=== PATIENT | female | born 1950 | race Caucasian/White ===

== ENCOUNTER 2016-09-19 09:25 | Inpatient (IN) | payer OTHER ==
[~2016-09-19] VITALS: Ht 175.3 cm; Wt 104.3 kg
[~2016-09-19 09:25] MED LIST: ACETAMINOPHEN-1 EAC3 PO; ALPRAZOLAM1 M2 PO; ALPRAZOLAM1 MG PO; COUMADIN5 M2 PO; DIGOX0.25 MG PO; DIGOXIN0.125 MG PO; DILTIAZEM ER360 M1 PO; DULOXETINE30 MG PO; ESCITALOPRAM20 MG PO; FUROSEMIDE20 M1 PO; GABAPENTIN300 MG PO; GABAPENTIN600 M1 PO; HYDROMORPHONE HC2 M1 PO; JANUMET 1000 MG1 TAB PO; KEFLEX500 M1 PO; LANTUS SOLOS100 U/ML SC; LEVOTHYROXINE0.05 M1 PO; LIPITOR20 M2 PO; LISINOPRIL2.5 M1 PO; MAGNESIUM OXID400 MG PO; MECLIZINE HCL25 M1 PO; MECLIZINE HCL25 MG PO; METOPROLOL SUCC25 M1 PO; NORCO 325 MG-101 TAB PO; NORCO 325 MG-7.1 TAB PO; NOVOLOG FL100 UNIT/1; NYAMYC100000 U/G TOP; PANTOPRAZOLE SO40 MG PO; PREDNISONE5 M1 PO; PROAIR HFA0.09 MG/Ac INH; PROBIOTIC1 EACH PO; PROCHLORPERAZIN25 MG PR; SLOW-MAG71.5 MG PO; SYNTHROID25 MCG PO; TRAMADOL HCL50 M1 PO; ULTRA-LIGHT RO1 EACH TOP; VENLAFAXINE HC150 MG PO; ZETIA10 M1 PO
--- NOTE | 2016-09-19 09:40 | NUR ---
PT BIBA FROM [facility] FOR AMS STARTING THIS MORNING. PER EMS, PT'S BLOOD SUGAR IN 60'S, FACILITY GAVE PT GLUCOSE AND UPON EMS ARRIVAL, PT'S B/S 140'S. PER SAFETY GROOVING MACHINE OPERATOR, PT ALSO HAD PIN POINT PUPILS, TAKES CODEINE, GIVEN 1 SPRAY NARCAN WITHOUT CHANGES. PT ARRIVES ALERT/DROWSY AND ANSWERING SOME QUESTIONS APPROPRIATELY. ORIENTED TO SELF AND PLACE ONLY. F/S ON ARRIVAL 125. L SIDE FACIAL DROOP NOTED. MED STUDENT AT BEDSIDE FOR EVAL.
--- NOTE | 2016-09-19 09:42 | NUR ---
DR. MARKOS GONZALEZ.
--- NOTE | 2016-09-19 09:49 | ED GENERAL ADULT ---
History of Present Illness General Chief Complaint: Altered Mental Status Stated Complaint: AMS Source: old records, EMS, W10 Exam Limitations: no limitations Vital Signs & Intake/Output Vital Signs & Intake/Output Vital Signs Date Time Temp Pulse Resp B/P Pulse O2 O2 Flow FiO2 Ox Delivery Rate 09/19 0940 97.9 115 15 120/79 97 Room Air Room Air Allergies Coded Allergies: oxycodone (From PERCOCET) (UNKNOWN 07/07/16) morphine (HEADACHES, SWEATING 07/07/16) nitroglycerin (MADE MY HEART GO CRAZY 07/07/16) Reconcile Medications Acetaminophen With Codeine (Acetaminophen-Cod #3 Tablet) 300 MG-30 MG TABLET 1 TAB PO TID PAIN (Reported) Albuterol Sulfate (Proair Hfa) 0.09 MG/Actuation WING 2 PUFF INH TID PRN ASTHMA (Reported) Alprazolam 1 MG TABLET 1 TAB PO DAILY ANXIETY (Reported) Atorvastatin Calcium (Lipitor) 20 MG TABLET 1 TAB PO BEDTIME HIGH CHOLESTEROL (Reported) Cephalexin (Keflex) 500 MG CAPSULE 1 CAP PO BID UTI Diltiazem HCl (Diltiazem ER) 360 MG CAPSULE.ER 1 CAP PO DAILY AFIB (Reported) Ezetimibe (Zetia) 10 MG TABLET 1 TAB PO DAILY HIGH CHOLESTEROL (Reported) Furosemide 20 MG TABLET 1 TAB PO DAILY HTN (Reported) Gabapentin 600 MG TABLET 1 TAB PO BID NEUROPATHY (Reported) Insulin Aspart, Recombinant (Novolog Flexpen) (Unknown Strength) INSULN.PEN DIABETES (Reported) Dose <80mg/dl Initiate hypoglycemic protocol 80-150mg/dl 2units 151-200mg/dl 4units 201-250mg/dl 6units 251-300mg/dl 8units 301-350mg/dl 10units 351-400mg/dl 12units more than 400mg/dl 14units Bedtime 201-250mg/dl 2units 251-300mg/dl 4units 301-350mg/dl 6units 351-400mg/dl 8units more than 400mg/dl 10units Insulin Glargine, Recombinan (Lantus Solostar) 100 U/ML RAVI 40 UNITS SC QPM DIABETES (Reported) GIVEN 7 UNITS Levothyroxine Sodium (Synthroid) 25 MCG TABLET 1.5 TAB PO DAILY AC hypothyroidism Lisinopril 2.5 MG TABLET 1 TAB PO DAILY HTN (Reported) Magnesium Chloride (Slow-Mag) 71.5 MG TABLET.DR 1 TAB PO TID SUPPLEMENT ( Reported) Meclizine HCl 25 MG TABLET 1 TAB PO BID VERTIGO (Reported) Metformin Hydrochloride/Susan (Janumet 1000 MG-50 MG) 1 TAB TAB 1 TAB PO BID DIABETES (Reported) Venlafaxine HCl (Venlafaxine HCl ER) 150 MG CAP.ER.24H 1 CAP PO DAILY DEPRESSION (Reported) Warfarin Sodium (Coumadin) 5 MG TABLET 1 TAB PO DAILY AFIB (Reported) please dose warfarin as per INR. Triage Note: PT BIBA FROM [facility] FOR AMS STARTING THIS MORNING. PER EMS, PT'S BLOOD SUGAR IN 60'S, FACILITY GAVE PT GLUCOSE AND UPON EMS ARRIVAL, PT'S B/S 140'S. PER YARD JACKER, PT ALSO HAD PIN POINT PUPILS, TAKES CODEINE, GIVEN 1 SPRAY NARCAN WITHOUT CHANGES. PT ARRIVES ALERT/DROWSY AND ANSWERING SOME QUESTIONS APPROPRIATELY. ORIENTED TO SELF AND PLACE ONLY. F/S ON ARRIVAL 125. L SIDE FACIAL DROOP NOTED. MED STUDENT AT BEDSIDE FOR EVAL. Triage Nurses Notes Reviewed? yes HPI: Patient is as short-term rehabilitation. This morning on rounds a noticed that she was confused. Patient's fingerstick was noted to be 60. Patient was given glucagon without any change in her mental status. Patient was also noted to have pinpoint pupils and patient is on "bleeding so she was given Narcan again without change in her mental status. Patient has no history of confusion. Patient is on Coumadin for A. fib. Patient is currently alert and oriented 2 but is not offering any history. Patient has no current complaints. Past History Travel History Traveled to [place] past 21 day No Medical History Any Pertinent Medical History? see below for history Neurological: peripheral neuropathy, TIA EENT: NONE Cardiovascular: AFIB, cardiomyopathy, syncope, ORTHOSTATIC HYPOTENSION LOW MAGNESIUM PACEMAKER/DEFIBRILLATOR Respiratory: asthma Gastrointestinal: GASTRIC BYPASS Hepatic: NONE Renal: NONE Musculoskeletal: osteoarthritis, NEUROPATHY Psychiatric: NONE Endocrine: diabetes, hypothyroidism Blood Disorders: NONE Cancer(s): NONE TERADATA DEVELOPER/Reproductive: NONE Other Medical Hx: Gastric Bypass Surgery, Frequent Falls History of MRSA: No History of VRE: No History of CDIFF: No Pneumonia Vaccine: 05/29/16 Influenza Vaccine: 06/01/16 Surgical History Surgical History: GASTRIC BYPASS PACEMAKER Psychosocial History Who do you live with Patient/Self Services at Home None What is your primary language Chinese Tobacco Use: Never used Family History Family History, If Any: Relation not specified for: *No pertinent family history Hx Contributory? No Review of Systems Review of Systems Constitutional: Reports: see HPI. Physical Exam Physical Exam General Appearance: well developed/nourished, alert, awake, moderate distress, NORMAL MOTRO STRENGTH, NO PRONATOR DRIFT Head: atraumatic Eyes: Bilateral: PERRL, EOMI. Ears, Nose, Throat: LEFT FACIAL DROOP Neck: supple Respiratory: normal breath sounds, chest non-tender, no respiratory distress, lungs clear Cardiovascular: normal peripheral pulses, irregularly irregular Gastrointestinal: normal bowel sounds, soft, non-tender, no organomegaly Back: normal inspection Extremities: normal inspection, normal capillary refill, normal range of motion, no edema Neurologic/Psych: awake Lymphatic: no anterior cervical estela Core Measures ACS in differential dx? No CVA/TIA Diagnosis: Yes NIH Stroke Scale: Total 2 Dt/Tm Last Known Well: Yes Date Last Known Well: 09/18/16 Time Last Known Well: 2199 Neurological S/S of CVA: Facial Hemiparesis Symptom start date: 09/18/16 Symptom start time: 0 Reason tPA not ordered: Medical Contraindication Severe Sepsis Present: No Septic Shock Present: No Progress Differential Diagnoses I considered the following diagnoses in my evaluation of the patient: [CVA, UTI, PNEUMONIA, ELECTROLYTE ABNORMALITY] Plan of Care: Orders Procedure Date/time Status Telemetry/Leasing Assistant 09/19 947 Active URINALYSIS 09/19 947 Active TROPONIN LEVEL 09/19 947 Complete PARTIAL THROMBOPLASTIN TIME 09/19 0848 Complete PROTHROMBIN TIME 09/19 0848 Complete COMPREHENSIVE METABOLIC PANEL 09/19 947 Complete CBC WITHOUT DIFFERENTIAL 09/19 947 Complete EKG 09/19 0848 Active Laboratory Tests 09/19/16 0949: Anion Gap 13, Estimated GFR > 60, BUN/Creatinine Ratio 34.3 H, Glucose 103 H, Calcium 9.1, Total Bilirubin 0.9, AST 22, ALT 25, Alkaline Phosphatase 31, Troponin I < 0.01, Total Protein 7.0, Albumin 3.7, Globulin 3.3, Albumin/ Globulin Ratio 1.1, PT 19.6 H, INR 1.88 H, APTT 31, CBC w Diff MAN DIFF ORDERED, RBC 3.87 L, MCV 81.0, MCH 27.2, RDW 15.3 H, MPV 7.6, Gran % 87.9 H, Lymphocytes % 9.2 L, Monocytes % 2.8, Eosinophils % 0.1, Basophils % 0 L, Absolute Granulocytes 8.1 H, Absolute Lymphocytes 0.9 L, Absolute Monocytes 0.3, Absolute Eosinophils 0, Absolute Basophils 0, Platelet Estimate ADEQUATE, Hypochromic-Microcytic 1+, Anisocytosis 1+, PUBS MCHC 33.5 Diagnostic Imaging: Viewed by Me: Radiology Read, CT Scan. Discussed w/RAD: Radiology Read, CT Scan. Radiology Impression: PATIENT: ROSARIO CLAYTON PRESENT AGE: 65 PATIENT ACCOUNT NO: [id number] : 49 LOCATION: [facility] ORDERING PHYSICIAN: VANESSA BURROWS MD SERVICE DATE: 09/19/16 EXAM TYPE: CAT - CT HEAD WO IV CONTRAST EXAMINATION: CT HEAD WITHOUT CONTRAST CLINICAL INFORMATION: Left facial droop. Cerebrovascular accident. COMPARISON: CT scan of the head 08/09/2016. TECHNIQUE: Contiguous axial imaging was performed from the skull base to vertex without intravenous administration of contrast. DLP: 600.71 mGy-cm. FINDINGS: There is no acute intracranial hemorrhage or abnormal extra- axial collection. No intracranial mass effect or midline shift. Lateral and third ventricles are slightly prominent and there is proportionate prominence of the subarachnoid spaces reflecting a mild degree of global parenchymal volume loss. There are scattered ill-defined foci of hypoattenuation within the periventricular white matter that most likely represent a chronic manifestation of small vessel ischemia. Shaffer-white matter differentiation is preserved and there is no evidence of acute territorial infarct. The calvarium and skull base are intact. Mastoid air cells and middle ear cavities are well aerated. Visualized paranasal sinuses are well-aerated. IMPRESSION: There are chronic small vessel ischemic changes within the periventricular white matter. Grossly no evidence of acute territorial infarct or hemorrhage. DICTATED BY: UZIEL BARRAGAN MD DATE/TIME DICTATED:09/19/161024 LABORER CONSTRUCTION OR LEAK GANG:JULIO DATE/ TIME TRANSCRIBED:09/19/161024 CONFIDENTIAL, DO NOT COPY WITHOUT APPROPRIATE AUTHORIZATION. <Electronically signed in Other Vendor System> SIGNED BY: UZIEL BARRAGAN MD 09/19/16 1033 CXR Impression: PATIENT: ROSARIO CLAYTON PRESENT AGE: 65 PATIENT ACCOUNT NO: [id number] : 49 LOCATION: [facility] ORDERING PHYSICIAN: VANESSA BURROWS MD SERVICE DATE: 09/19/16 EXAM TYPE: RAD - XRY-CHEST XRAY, PA AND LATERAL EXAMINATION: XR CHEST CLINICAL INFORMATION: Pneumonia, confusion. COMPARISON: Multiple prior examinations, most recent chest 2015. TECHNIQUE: PA and lateral views of the chest were obtained. FINDINGS: The exam is limited as the patient was rotated to the right with suboptimal inspiration resulting in low lung volumes. There are mild increased interstitial markings which may be artifactual versus edema. I do not see a focal consolidation. A pacemaker/AICD is noted with leads overlying the right ventricle, unchanged. IMPRESSION: Limited examination as noted above. Possible mild edema versus artifact. Consider follow up imaging with PA and lateral views if the patient is able and thought clinically necessary. DICTATED BY: JASVIR SOARES MD DATE/TIME DICTATED:09/19/161055 LABORER CONSTRUCTION OR LEAK GANG:JULIO DATE/ TIME TRANSCRIBED:09/19/161055 CONFIDENTIAL, DO NOT COPY WITHOUT APPROPRIATE AUTHORIZATION. <Electronically signed in Other Vendor System> SIGNED BY: JASVIR SOARES MD 09/19/16 1112 Initial ED EKG: AFIB (WITH RVR), nonspecific ST T wave chg Prior EKG: unchanged Rhythm Strip: atrial fibrillation Departure Departure Disposition: STILL A PATIENT Condition: Stable Clinical Impression Primary Impression: UTI (urinary tract infection) Secondary Impressions: Afib Referrals: GABRIELA BHAT MD (PCP/Family) Departure Forms: Customer Survey General Discharge Information Admission Note Spoke With: BERNICE REYES,RICHARDSON Documentation of Exam: Documentation of any treatments & extenuating circumstances including Concerns Regarding Discharge (functional status, medication knowledge or non-compliance, living conditions, etc.) that warrant an admission rather than observation: [ Patient has acute confusion and a UTI. Patient will be admitted for IV antibiotics. Patient has a history of atrial fibrillation and her INR subtherapeutic. Patient does have a left facial droop but no other neurological findings except for the confusion. They raise the possibility of this being a stroke however makes it unlikely. The patient is not a candidate for TPA regardless. The patient will be admitted to telemetry for further evaluation and IV antibiotics.] Critical Care Note Critical Care Note Critical Care Time: non-applicable
[2016-09-19 10:01] LABS: ABSOLUTE BASOPHIL COUNT 0 /CUMM (0.0-0.2); ABSOLUTE EOSINOPHIL COUNT 0 /CUMM (0.0-0.7); ABSOLUTE GRANULOCYTE CT 8.1 /CUMM (1.4-6.5); ABSOLUTE LYMPH COUNT 0.9 /CUMM (1.2-3.4); ABSOLUTE MONOCYTE COUNT 0.3 /CUMM (0.10-0.60); BASOPHIL % 0 % (0.0-2.0); EOSINOPHIL % 0.1 % (0-5); GRANULOCYTE % 87.9 % (42.2-75.2); HEMATOCRIT 31.3 % (37-47); MEAN CORPUSCULAR HGB 27.2 PG (27.0-31.0); MEAN CORPUSCULAR HGB CONC 33.5 G/DL (33.0-37.0); MEAN PLATELET VOLUME 7.6 FL (7.4-10.4); PLATELET COUNT 271 /CUMM (130-400); RBC DISTRIBUTION WIDTH 15.3 % (11.5-14.5); RED BLOOD CELL CT 3.87 /CUMM (4.20-5.40); WHITE BLOOD CELL COUNT 9.2 /CUMM (4.8-10.8)
[2016-09-19 10:08] LABS: PT 19.6 SEC (9.4-12.5); PTT 31 SEC (25-37)
--- NOTE | 2016-09-19 10:33 | CT SCAN REPORT ---
EXAMINATION: CT HEAD WITHOUT CONTRAST CLINICAL INFORMATION: Left facial droop. Cerebrovascular accident. COMPARISON: CT scan of the head 08/09/2016. TECHNIQUE: Contiguous axial imaging was performed from the skull base to vertex without intravenous administration of contrast. DLP: 600.71 mGy-cm. FINDINGS: There is no acute intracranial hemorrhage or abnormal extra-axial collection. No intracranial mass effect or midline shift. Lateral and third ventricles are slightly prominent and there is proportionate prominence of the subarachnoid spaces reflecting a mild degree of global parenchymal volume loss. There are scattered ill-defined foci of hypoattenuation within the periventricular white matter that most likely represent a chronic manifestation of small vessel ischemia. Shaffer-white matter differentiation is preserved and there is no evidence of acute territorial infarct. The calvarium and skull base are intact. Mastoid air cells and middle ear cavities are well aerated. Visualized paranasal sinuses are well-aerated. IMPRESSION: There are chronic small vessel ischemic changes within the periventricular white matter. Grossly no evidence of acute territorial infarct or hemorrhage.
--- NOTE | 2016-09-19 11:12 | RADIOLOGY REPORT ---
EXAMINATION: XR CHEST CLINICAL INFORMATION: Pneumonia, confusion. COMPARISON: Multiple prior examinations, most recent chest 08/09/2016. TECHNIQUE: PA and lateral views of the chest were obtained. FINDINGS: The exam is limited as the patient was rotated to the right with suboptimal inspiration resulting in low lung volumes. There are mild increased interstitial markings which may be artifactual versus edema. I do not see a focal consolidation. A pacemaker/AICD is noted with leads overlying the right ventricle, unchanged. IMPRESSION: Limited examination as noted above. Possible mild edema versus artifact. Consider follow up imaging with PA and lateral views if the patient is able and thought clinically necessary.
--- NOTE | 2016-09-19 11:39 | NUR ---
MED WITH ROCKY PER AARON. PER MD BURROWS, NO URINE/URINE CULTURE NEEDED SINCE PENDING FROM YESTERDAY OUTPATIENT.
--- NOTE | 2016-09-19 12:13 | NUR ---
PT ADMITTED TO ROOM [id number]
--- NOTE | 2016-09-19 12:24 | History & Physical ---
SOHAN HERRERAMA 09/19/16 1224: General Information and HPI MD Statement: I have seen and personally examined ROSARIO CLAYTON and documented this H&P. The patient is a 65 year old F who presented with a patient stated chief complaint of slurred speech and acute confusion. Source of Information: [facility], REHABILITATION FACILITY Exam Limitations: clinical condition, confusion, poor historian, intoxication History of Present Illness: Patient is a 65-year-old female with past medical history of cardiomyopathy status post AICD about 5 -6 years ago with recent generator change about a month ago, history of A. fib on Coumadin, history of hypertension, hyperlipidemia, asthma, diabetes mellitus, hypothyroidism, chronic hypomagnesemia complicated with seizures and V. tach, gastric bypass procedure , recently admitted to [facility] due to recurrent falls and was discharged to short-term rehabilitation ([facility] )presented to the ED through ambulance with chief complaint of acute confusion with slurred speech started this morning. Patient was confused at the time of examination so most of the history was obtained from the nurse in the facility. As per nurse she was in her usual state of health until this morning, and she found her confused and was having slurred speech. Patient's blood sugar levels were checked and were found to be in 60s, she was given 1 time dose of glucagon and sugar levels improved to 79 but her mental condition remains the same and she was brought to the ER for further assessment. The nurse also told that patient was recently treated for urinary tract infection, received Macrobid for total of 7 days. Patient finished a course of antibiotics on September 10, urinalysis and urine culture were obtained done on As mentioned above patient was recently discharged to the facility from [facility] on 08/14/2016. She has a history of A. fib on 5 mg of Coumadin daily, as per facility. She was recently seen by Dr. Benito as an outpatient for medical optimization and cardiac clearance before the knee surgery Allergies/Medications Allergies: Coded Allergies: acetaminophen (09/19/16) oxycodone (From PERCOCET) (UNKNOWN 09/19/16) morphine (HEADACHES, SWEATING 09/19/16) nitroglycerin (MADE MY HEART GO CRAZY 09/19/16) Home Med list Acetaminophen With Codeine (Acetaminophen-Cod #3 Tablet) 300 MG-30 MG TABLET 1 TAB PO TID PAIN (Reported) Albuterol Sulfate (Proair Hfa) 0.09 MG/Actuation WING 2 PUFF INH TID PRN ASTHMA (Reported) Alprazolam 1 MG TABLET 1 TAB PO DAILY ANXIETY (Reported) Atorvastatin Calcium (Lipitor) 20 MG TABLET 1 TAB PO BEDTIME HIGH CHOLESTEROL (Reported) Cephalexin (Keflex) 500 MG CAPSULE 1 CAP PO BID UTI Diltiazem HCl (Diltiazem ER) 360 MG CAPSULE.ER 1 CAP PO DAILY AFIB (Reported) Ezetimibe (Zetia) 10 MG TABLET 1 TAB PO DAILY HIGH CHOLESTEROL (Reported) Furosemide 20 MG TABLET 1 TAB PO DAILY HTN (Reported) Gabapentin 600 MG TABLET 1 TAB PO BID NEUROPATHY (Reported) Insulin Aspart, Recombinant (Novolog Flexpen) (Unknown Strength) INSULN.PEN DIABETES (Reported) Dose <80mg/dl Initiate hypoglycemic protocol 80-150mg/dl 2units 151-200mg/dl 4units 201-250mg/dl 6units 251-300mg/dl 8units 301-350mg/dl 10units 351-400mg/dl 12units more than 400mg/dl 14units Bedtime 201-250mg/dl 2units 251-300mg/dl 4units 301-350mg/dl 6units 351-400mg/dl 8units more than 400mg/dl 10units Insulin Glargine, Recombinan (Lantus Solostar) 100 U/ML RAVI 40 UNITS SC QPM DIABETES (Reported) GIVEN 7 UNITS Levothyroxine Sodium (Synthroid) 25 MCG TABLET 1.5 TAB PO DAILY AC hypothyroidism Lisinopril 2.5 MG TABLET 1 TAB PO DAILY HTN (Reported) Magnesium Chloride (Slow-Mag) 71.5 MG TABLET.DR 1 TAB PO TID SUPPLEMENT ( Reported) Meclizine HCl 25 MG TABLET 1 TAB PO BID VERTIGO (Reported) Metformin Hydrochloride/Susan (Janumet 1000 MG-50 MG) 1 TAB TAB 1 TAB PO BID DIABETES (Reported) Venlafaxine HCl (Venlafaxine HCl ER) 150 MG CAP.ER.24H 1 CAP PO DAILY DEPRESSION (Reported) Warfarin Sodium (Coumadin) 5 MG TABLET 1 TAB PO DAILY AFIB (Reported) please dose warfarin as per INR. 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 self Services at Home: None Primary Language: Belarusian Functional Ability ADLs Independent: dressing, eating, toileting, bathing. Ambulation: independent, cane, walker, non-ambulatory IADLs Independent: shopping, housework, finances, food prep, telephone, transportation , medication admin. Review of Systems Review of Systems Constitutional: Denies: see HPI. Exam & Diagnostic Data Last 24 Hrs of Vital Signs/I&O Vital Signs Date Time Temp Pulse Resp B/P Pulse O2 O2 Flow FiO2 Ox Delivery Rate 09/19 1214 Room Air Room Air 09/19 1136 98.1 123 18 108/71 97 Room Air 09/19 1000 Room Air Room Air 09/19 0940 97.9 115 15 120/79 97 Room Air Room Air Intake & Output 09/19 1600 09/19 0800 09/19 0000 Intake Total 0 Output Total Balance 0 Intake, Oral 0 Physical Exam General Appearance No Acute Distress, APPEARED CONFUSED AND ALTERED NOT ORIENTED IN TIME PLACE AND PERSON Skin No Rashes, No Breakdown Cardiovascular IRREGULARLY IRREGULAR RATE AND RHYTHM Lungs Clear to Auscultation Abdomen Normal Bowel Sounds, Soft, No Tenderness Neurological Normal Speech, Normal Tone, OTHER NEUROLOGICAL EXAMINATION COULD NOT BEFORE FROM DUE TO PATIENT'S ACUTE CONFUSION Extremities No Clubbing, No Cyanosis, No Edema Vascular Normal Pulses Last 24 Hrs of Labs/Robbie: Laboratory Tests 09/19/16 0949: Anion Gap 13, Estimated GFR > 60, BUN/Creatinine Ratio 34.3 H, Glucose 103 H, Calcium 9.1, Total Bilirubin 0.9, AST 22, ALT 25, Alkaline Phosphatase 31, Troponin I < 0.01, Total Protein 7.0, Albumin 3.7, Globulin 3.3, Albumin/ Globulin Ratio 1.1, PT 19.6 H, INR 1.88 H, APTT 31, CBC w Diff MAN DIFF ORDERED, RBC 3.87 L, MCV 81.0, MCH 27.2, RDW 15.3 H, MPV 7.6, Gran % 87.9 H, Lymphocytes % 9.2 L, Monocytes % 2.8, Eosinophils % 0.1, Basophils % 0 L, Absolute Granulocytes 8.1 H, Absolute Lymphocytes 0.9 L, Absolute Monocytes 0.3, Absolute Eosinophils 0, Absolute Basophils 0, Platelet Estimate ADEQUATE, Hypochromic-Microcytic 1+, Anisocytosis 1+, PUBS MCHC 33.5 Diagnostic Data EKG Results EKG done in the ED showed atrial fibrillation with a heart rate in 110s with some borderline T-wave abnormalities Assessment/Plan Assessment: This is a 65-year-old female with past medical history of cardiomyopathy status post AICD about 10 years ago with recent generator change about a month ago, history of A. fib on Coumadin, history of hypertension, hyperlipidemia, asthma, diabetes mellitus, hypothyroidism, chronic hypomagnesemia, gastric bypass procedure , recently admitted to [facility] due to recurrent falls and was discharged to short-term rehabilitation ([facility] )presented to the ED through ambulance with chief complaint of acute confusion with slurred speech started this morning. Vitals on admission temperature 97.9, pulse 115, blood pressure 120/79 on room air Pertinent labs: WBC count 9.2, H&H 10.5/31.3 with MCV of 81, subtherapeutic INR 1.88 , normal BEP First troponin done in the ED was negative EKG showed atrial fibrillation heart rate in the range of 110s CT head revealed :There are chronic small vessel ischemic changes within the periventricular white matter. Grossly no evidence of acute territorial infarct or hemorrhage. Chest x-ray : Limited examination as noted above. Possible mild edema versus artifact. Consider follow up imaging with PA and lateral views if the patient is able and thought clinically necessary. Assessment 1. Acute confusion with slurred speech(rule out TIA/stroke) in the setting of subtherapeutic INR 2.Encephalopathy due to urinary tract infection 3. Hypoglycemia history of diabetes mellitus- 4. History of hypertension hyperlipidemia 5. History of hypothyroidism 6. History of chronic hypomagnesemia without clear etiology complicated with seizures and polymorphic V. tach. 7. History of asthma Plan 1. Acute confusion with slurred speech(rule out TIA/stroke) in the setting of subtherapeutic INR : * We'll admit the patient to telemetry floor * Keep the patient nothing by mouth for now obtain formal swallow evaluation. Bedside evaluation cannot be performed because of patient's acute confusion. * Talked to Dr. Benito ,AICD device is not compatible with MRI so cannot be performed. * Will give give higher dose of Coumadin today 7.5 mg * Continue to monitor INR daily and dose Coumadin accordingly * Will obtain neurology consult if needed if symptoms do not improve. 2.Metabolic Encephalopathy due to urinary tract infection: (History of recurrent urinary tract infections) * Urine culture done at the facility showed gram-negative rods. Recently been treated for urinary tract infection with Macrobid for total of 7 days. * Urine analysis and urine culture have been recent. * We'll start the patient on IV ceftriaxone * Continue gentle hydration * Monitor vitals every 4 hours * Watch for any hemodynamic instability. 3. Hypoglycemia history of diabetes mellitus: * Hemoglobin A1c checked in June was 6.1. * As patient is currently nothing by mouth we'll start the patient on low-dose NPH insulin sliding scale. * Continue with D5 half-normal saline. * We will recheck hemoglobin A1c if low will consider calling endocrinology. 4. History of hypertension hyperlipidemia: * Continue home medications 6. History of hypothyroidism * Continue home dose of levothyroxine. 7. History of chronic hypomagnesemia without clear etiology complicated with seizures and polymorphic V. tach. * Mg levels are pending * Continue slow release Mg . 8. DVT prophylaxis with subcutaneous Lovenox 9. Mild to moderate pain controlled with Tylenol 10. Patient is full code(as patient is currently confused and she has no power of trial attorney will keep her full code for now once her clinical and mental condition improves we will readdress the CODE STATUS) As Ranked By This Provider Problem List: 1. Hypomagnesemia syndrome 2. Afib 3. CVA (cerebral infarction) Core Measures/Miscellaneous Acute Coronary Syndrome ACS Diagnosis: No Cerebrovascular Accident CVA/TIA Diagnosis: Yes Date Last Known Well: 09/18/16 Time Last Known Well: 2199 Neurological S/S of CVA: Facial Hemiparesis Symptom Start Date: 09/18/16 Symptom Start Time: 2199 Reason tPA not ordered Medical Contraindication Congestive Heart Failure CHF Diagnosis: No Venous Thromboembolism VTE Risk Factors: Acute medical illness, Age > 40 VTE Prophylaxis Ordered Inpt: Pharm- Warfarin No Mech VTE prophylaxis d/t: No contraindications No VTE Pharm Prophylaxis d/t: No contraindications VTE Diagnosis: No VTE Type: NONE VTE Confirmed by (Test): NONE Severe Sepsis Severe Sepsis Present: No Septic Shock Septic Shock Present: No Miscellaneous Documentation Attending Case Discussed With: SAROJ Primary Care Physician: GABRIELA BHAT MD Patient sees these Specialists dr BENITO Level of Patient Care: Telemetry MARK KYLE MD 09/19/16 1450: Attending MD Review Statement Attending Statement Attending MD Statement: examined this patient, discuss w/resident/PA/[employer], agreed w/resident/PA/[employer], reviewed EMR data (avail), discussed with nursing, discussed with case mgmt Attending Assessment/Plan: 65-year-old female past medical history of A. fib on Coumadin, cardiomyopathy with an AICD placed many years ago, diabetes and hypertension and chronic hypomagnesemia. She was recently here in August with a fall and was discharged yesterday on August 14. Apparently at [facility] she was doing okay, completed a course of Macrobid for a UTI and was noticed to be acutely confused. Sugar was on the low side and we were worried about stroke and sent her in. She is confused and nonfocal on exam so I'm not sure what the encephalopathy is from. She does have a positive UA and positive urine culture and I think given the acute confusion, the diabetes, I think it would be prudent to treat her. We 'll give IV ceftriaxone with the hope that this is a UTI causing delirium, will dose her Coumadin slightly higher today as INR is subtherapeutic at 1.8, neurochecks. She cannot get an MRI because of the ICD, will get an echo to rule out thrombus. I worry that she is hypoglycemic we'll hold all long-acting agents and check a hemoglobin A1c, nothing by mouth and a formal swallow eval
[2016-09-19] MEDS ORDERED: COUMADIN5 M2 PO (12:33)
--- NOTE | 2016-09-19 12:49 | NUR ---
REPORT GIVEN TO ETHAN JOSHI.
--- NOTE | 2016-09-19 13:11 | NUR ---
HOUSE STAFF PAGED A SECOND TIME FOR BLOOD ORDER CLARIFICATION.
[2016-09-19 13:54] VITALS: BP 136/78
--- NOTE | 2016-09-19 14:51 | Admission Certification ---
Admission Certification Certification Statement - As attending physician, I certify that at the time of - admission, based on clinical presentation, severity of - symptoms, need for further diagnostic testing and - therapeutic interventions, and risk of adverse outcomes - without in-hospital treatment, in my clinical assessment, - this patient requires an acute hospital stay for a minimum - of two nights or longer. I have also considered psychsocial - factors such as support system, advanced age, financial - issues, cognitive issues, and failed out-patient treatments, - past re-admission history, safety of patient, and lack of - compliance as applicable. Specific rationale supporting this admission is: Acute confusion and questionable slurred speech and patient had A. fib and cardiomyopathy.
--- NOTE | 2016-09-19 15:00 | NUR ---
ADMISSION NOTE; PT ADMITTED TO FLOOR. ALERT AND CONFUSED. NIH SCORE 3. VSS. PT AFIB 120'S. PT DUE CARDIZEM CD DOSE. NO MEDS GIVEN TODAY. CT HEAD NEGATIVE. TO BE SEEN BY NEURO. BEDSIDE SWALLOW EVAL DONE BY SPEECH THERAPIST. PT CLEARED FOR CHOPPED DIET WITH THIN LIQUIDS.
--- NOTE | 2016-09-19 15:36 | Cons- Neurology ---
General Information and HPI Consulting Request Date of Consult: 09/19/16 Requested By: JASVIR PLUMMER MD History of Present Illness: 65-year-old female admitted with confusion Patient unable to give reliable history Hospital she has a history of A. fib, hypertension, gastric bypass, recurrent falls, asthma, diabetes She has had a recent urinary tract infection. She was at [facility] in August She is now admitted with confusion and slurred speech No observed falls, head trauma, or convulsions Allergies/Medications Allergies: Coded Allergies: acetaminophen (09/19/16) oxycodone (From PERCOCET) (UNKNOWN 09/19/16) morphine (HEADACHES, SWEATING 09/19/16) nitroglycerin (MADE MY HEART GO CRAZY 09/19/16) Home Med List: Acetaminophen With Codeine (Acetaminophen-Cod #3 Tablet) 300 MG-30 MG TABLET 1 TAB PO TID PAIN (Reported) Albuterol Sulfate (Proair Hfa) 0.09 MG/Actuation WING 2 PUFF INH TID PRN ASTHMA (Reported) Alprazolam 1 MG TABLET 1 TAB PO DAILY ANXIETY (Reported) Atorvastatin Calcium (Lipitor) 20 MG TABLET 1 TAB PO BEDTIME HIGH CHOLESTEROL (Reported) Cephalexin (Keflex) 500 MG CAPSULE 1 CAP PO BID UTI Diltiazem HCl (Diltiazem ER) 360 MG CAPSULE.ER 1 CAP PO DAILY AFIB (Reported) Ezetimibe (Zetia) 10 MG TABLET 1 TAB PO DAILY HIGH CHOLESTEROL (Reported) Furosemide 20 MG TABLET 1 TAB PO DAILY HTN (Reported) Gabapentin 600 MG TABLET 1 TAB PO BID NEUROPATHY (Reported) Insulin Aspart, Recombinant (Novolog Flexpen) (Unknown Strength) INSULN.PEN DIABETES (Reported) Dose <80mg/dl Initiate hypoglycemic protocol 80-150mg/dl 2units 151-200mg/dl 4units 201-250mg/dl 6units 251-300mg/dl 8units 301-350mg/dl 10units 351-400mg/dl 12units more than 400mg/dl 14units Bedtime 201-250mg/dl 2units 251-300mg/dl 4units 301-350mg/dl 6units 351-400mg/dl 8units more than 400mg/dl 10units Insulin Glargine, Recombinan (Lantus Solostar) 100 U/ML RAVI 40 UNITS SC QPM DIABETES (Reported) GIVEN 7 UNITS Levothyroxine Sodium (Synthroid) 25 MCG TABLET 1.5 TAB PO DAILY AC hypothyroidism Lisinopril 2.5 MG TABLET 1 TAB PO DAILY HTN (Reported) Magnesium Chloride (Slow-Mag) 71.5 MG TABLET.DR 1 TAB PO TID SUPPLEMENT ( Reported) Meclizine HCl 25 MG TABLET 1 TAB PO BID VERTIGO (Reported) Metformin Hydrochloride/Susan (Janumet 1000 MG-50 MG) 1 TAB TAB 1 TAB PO BID DIABETES (Reported) Venlafaxine HCl (Venlafaxine HCl ER) 150 MG CAP.ER.24H 1 CAP PO DAILY DEPRESSION (Reported) Warfarin Sodium (Coumadin) 5 MG TABLET 1 TAB PO DAILY AFIB (Reported) please dose warfarin as per INR. Warfarin Sodium (Coumadin) 5 MG TABLET 5.5 MG PO DAILY AFIB (Reported) ALTERNATES WITH 5 MG COUMADIN PO DAILY Current Medications: Current Medications Sig/Gary Start time Last Medication Dose Route Stop Time Status Admin Acetaminophen 650 MG Q6P PRN 09/19 1200 AC PO Alprazolam 0.5 MG BID PRN 09/19 1400 AC PO 09/26 1359 Atorvastatin Calcium 20 MG AT BEDTIME 09/19 2200 AC PO Ceftriaxone Sodium 1,000 MG Q24H 09/20 1130 AC IV Ceftriaxone Sodium 1,000 MG DAILY 09/19 1345 DC IV Ceftriaxone Sodium 0 .STK-MED ONE 09/19 1134 DC .ROUTE Ceftriaxone Sodium 1,000 MG ONCE ONE 09/19 1100 DC 09/19 IV 09/19 1101 1139 Dextrose/Sodium 1,000 ML Q13H 09/19 1345 AC Chloride IV Diltiazem HCl 360 MG DAILY 09/19 1350 AC 09/19 PO 1506 Enoxaparin Sodium 40 MG DAILY 09/20 1000 AC SC Ezetimibe 10 MG DAILY 09/20 1000 AC PO Furosemide 20 MG DAILY 09/20 1000 AC PO Gabapentin 600 MG Q8 09/19 1400 AC PO Ibuprofen 600 MG Q6P PRN 09/19 1200 AC PO Insulin Human Regular 0 Q6 09/19 1800 AC SC Levothyroxine Sodium 0.0375 MG DAILY AC 09/20 0700 AC PO Lisinopril 2.5 MG DAILY 09/19 1353 AC PO Magnesium Chloride 64 MG TID 09/19 1600 AC PO Warfarin Sodium 7.5 MG COUMADIN 1700 ONE 09/19 1700 AC PO 09/19 1701 Review of Systems Review of Systems: Unreliable Denies headache, dizziness, chest pains, breathing problems, vomiting Other systems reviewed increasingly unreliable Past History Travel History Traveled to [place] past 21 day No Medical History Neurological: peripheral neuropathy, TIA EENT: NONE Cardiovascular: AFIB, cardiomyopathy, syncope, ORTHOSTATIC HYPOTENSION LOW MAGNESIUM PACEMAKER/DEFIBRILLATOR Respiratory: asthma Gastrointestinal: GASTRIC BYPASS Hepatic: NONE Renal: UTI Musculoskeletal: osteoarthritis, NEUROPATHY Psychiatric: anxiety Endocrine: hypothyroidism, DIABETES (TYPE II) Blood Disorders: NONE Cancer(s): NONE 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 self Services at Home: None Primary Language: Greenlandic ETOH Use: 6 Illicit Drug Use: UTD Functional Ability ADLs Independent: dressing, eating, toileting, bathing. Ambulation: independent, cane, walker, non-ambulatory IADLs Independent: shopping, housework, finances, food prep, telephone, transportation , medication admin. Exam & Diagnostic Data Vital Signs and I&O Vital Signs Date Time Temp Pulse Resp B/P Pulse O2 O2 Flow FiO2 Ox Delivery Rate 09/19 1354 98.5 117 11 136/78 18 Room Air 09/19 1246 98.8 128 18 137/70 98 Room Air 09/19 1214 Room Air Room Air 09/19 1136 98.1 123 18 108/71 97 Room Air 09/19 1000 Room Air Room Air 09/19 0940 97.9 115 15 120/79 97 Room Air Room Air Intake & Output 09/19 1600 09/19 0800 09/19 0000 Intake Total 0 Output Total Balance 0 Intake, Oral 0 Physical Exam: Awake, cooperative, confused, mildly dysarthric Not oriented to time or place Extraocular movements full, pupils equal reactive, fundi cannot adequately be evaluated, no facial weakness, no facial sensory loss, palate tongue and shoulders intact Normal tone and strength upper and lower extremities Response to noxious stimuli bilaterally and equally Deep tendon reflexes hypoactive throughout, Coordinative functions upper extremities grossly intact Attempted gait not made due to acute confusion Last 48 Hours of Lab Results: Laboratory Tests 09/19 09/19 1157 0949 Chemistry Sodium (137 - 145 mmol/L) Cancelled 139 Potassium (3.5 - 5.1 mmol/L) Cancelled 4.5 Chloride (98 - 107 mmol/L) Cancelled 104 Carbon Dioxide (22 - 30 mmol/L) Cancelled 22 Anion Gap (5 - 16) Cancelled 13 BUN (7 - 17 mg/dL) Cancelled 24 H Creatinine (0.5 - 1.0 mg/dL) Cancelled 0.7 Estimated GFR (>60 ml/min) > 60 BUN/Creatinine Ratio (7 - 25 %) Cancelled 34.3 H Glucose (65 - 99 mg/dL) 103 H Calcium (8.4 - 10.2 mg/dL) 9.1 Total Bilirubin (0.2 - 1.3 mg/dL) 0.9 AST (14 - 36 U/L) 22 ALT (9 - 52 U/L) 25 Alkaline Phosphatase (<127 U/L) 31 Troponin I (< 0.11 ng/ml) < 0.01 Total Protein (6.3 - 8.2 g/dL) 7.0 Albumin (3.5 - 5.0 g/dL) 3.7 Globulin (1.9 - 4.2 gm/dL) 3.3 Albumin/Globulin Ratio (1.1 - 2.2 %) 1.1 Coagulation PT (9.4 - 12.5 SEC) 19.6 H INR (0.90 - 1.19) 1.88 H APTT (25 - 37 SEC) 31 Hematology CBC w Diff Cancelled MAN DIFF ORDERED WBC (4.8 - 10.8 /CUMM) Cancelled 9.2 RBC (4.20 - 5.40 /CUMM) Cancelled 3.87 L Hgb (12.0 - 16.0 G/DL) Cancelled 10.5 L Hct (37 - 47 %) Cancelled 31.3 L MCV (81.0 - 99.0 FL) Cancelled 81.0 MCH (27.0 - 31.0 PG) Cancelled 27.2 RDW (11.5 - 14.5 %) Cancelled 15.3 H Plt Count (130 - 400 /CUMM) Cancelled 271 MPV (7.4 - 10.4 FL) Cancelled 7.6 Gran % (42.2 - 75.2 %) 87.9 H Lymphocytes % (20.5 - 51.1 %) 9.2 L Monocytes % (1.7 - 9.3 %) 2.8 Eosinophils % (0 - 5 %) 0.1 Basophils % (0.0 - 2.0 %) 0 L Absolute Granulocytes (1.4 - 6.5 /CUMM) 8.1 H Absolute Lymphocytes (1.2 - 3.4 /CUMM) 0.9 L Absolute Monocytes (0.10 - 0.60 /CUMM) 0.3 Absolute Eosinophils (0.0 - 0.7 /CUMM) 0 Absolute Basophils (0.0 - 0.2 /CUMM) 0 Platelet Estimate (ADEQUATE) ADEQUATE Hypochromic-Microcytic 1+ Anisocytosis 1+ PUBS MCHC (33.0 - 37.0 G/DL) Cancelled 33.5 Imaging/Other Studies: CT head: PRESSION: There are chronic small vessel ischemic changes within the periventricular white matter. Grossly no evidence of acute territorial infarct or hemorrhage. Assessment/Plan Assessment: Acute confusional state No evidence of cerebral ischemia Recommendations: Blood and urine cultures Serum ammonia level Discontinue all possible of offending medications Consider change of antibiotics to non-cephalosporins on non-penicillamine's Consider lumbar puncture if symptoms progress or not resolve Consult Acknowledgment - Thank you for your consult request.
--- NOTE | 2016-09-19 20:27 | Cons- Cardiology ---
General Information and HPI Consulting Request Date of Consult: 09/19/16 Requested By: JASVIR PLUMMER MD Reason for Consult: Mental status changes: AF Source of Information: patient, old records Exam Limitations: confusion History of Present Illness: 65-year-old female with past medical history of cardiomyopathy status post AICD about 5 -6 years ago with recent generator change about a month ago, history of A. fib on Coumadin, history of hypertension, hyperlipidemia, asthma, diabetes mellitus, hypothyroidism, chronic hypomagnesemia complicated with seizures and V. tach, gastric bypass procedure , recently admitted to [facility] due to recurrent falls and was discharged to short-term rehabilitation and recently seen by me as outpatient for further evaluation prior to proposed knee replacment surgery Now admitted to the hospital with increasing confusion, mental status changes and possible neurologic event. The patient is alert and recognizes me but is very confused. She denies any symptoms at the moment. She remains in AF with a controlled rate. Allergies/Medications Allergies: Coded Allergies: acetaminophen (09/19/16) oxycodone (From PERCOCET) (UNKNOWN 09/19/16) morphine (HEADACHES, SWEATING 09/19/16) nitroglycerin (MADE MY HEART GO CRAZY 09/19/16) Home Med List: Acetaminophen With Codeine (Acetaminophen-Cod #3 Tablet) 300 MG-30 MG TABLET 1 TAB PO TID PAIN (Reported) Albuterol Sulfate (Proair Hfa) 0.09 MG/Actuation WING 2 PUFF INH TID PRN ASTHMA (Reported) Alprazolam 1 MG TABLET 1 TAB PO DAILY ANXIETY (Reported) Atorvastatin Calcium (Lipitor) 20 MG TABLET 1 TAB PO BEDTIME HIGH CHOLESTEROL (Reported) Cephalexin (Keflex) 500 MG CAPSULE 1 CAP PO BID UTI Diltiazem HCl (Diltiazem ER) 360 MG CAPSULE.ER 1 CAP PO DAILY AFIB (Reported) Ezetimibe (Zetia) 10 MG TABLET 1 TAB PO DAILY HIGH CHOLESTEROL (Reported) Furosemide 20 MG TABLET 1 TAB PO DAILY HTN (Reported) Gabapentin 600 MG TABLET 1 TAB PO BID NEUROPATHY (Reported) Insulin Aspart, Recombinant (Novolog Flexpen) (Unknown Strength) INSULN.PEN DIABETES (Reported) Dose <80mg/dl Initiate hypoglycemic protocol 80-150mg/dl 2units 151-200mg/dl 4units 201-250mg/dl 6units 251-300mg/dl 8units 301-350mg/dl 10units 351-400mg/dl 12units more than 400mg/dl 14units Bedtime 201-250mg/dl 2units 251-300mg/dl 4units 301-350mg/dl 6units 351-400mg/dl 8units more than 400mg/dl 10units Insulin Glargine, Recombinan (Lantus Solostar) 100 U/ML RAVI 40 UNITS SC QPM DIABETES (Reported) GIVEN 7 UNITS Levothyroxine Sodium (Synthroid) 25 MCG TABLET 1.5 TAB PO DAILY AC hypothyroidism Lisinopril 2.5 MG TABLET 1 TAB PO DAILY HTN (Reported) Magnesium Chloride (Slow-Mag) 71.5 MG TABLET.DR 1 TAB PO TID SUPPLEMENT ( Reported) Meclizine HCl 25 MG TABLET 1 TAB PO BID VERTIGO (Reported) Metformin Hydrochloride/Susan (Janumet 1000 MG-50 MG) 1 TAB TAB 1 TAB PO BID DIABETES (Reported) Venlafaxine HCl (Venlafaxine HCl ER) 150 MG CAP.ER.24H 1 CAP PO DAILY DEPRESSION (Reported) Warfarin Sodium (Coumadin) 5 MG TABLET 1 TAB PO DAILY AFIB (Reported) please dose warfarin as per INR. Warfarin Sodium (Coumadin) 5 MG TABLET 5.5 MG PO DAILY AFIB (Reported) ALTERNATES WITH 5 MG COUMADIN PO DAILY Past History Travel History Traveled to [place] past 21 day No Medical History Blood Transfusion Hx: No Neurological: peripheral neuropathy, TIA EENT: NONE Cardiovascular: AFIB, cardiomyopathy, syncope, ORTHOSTATIC HYPOTENSION LOW MAGNESIUM PACEMAKER/DEFIBRILLATOR Respiratory: asthma Gastrointestinal: GASTRIC BYPASS Hepatic: NONE Renal: UTI Musculoskeletal: osteoarthritis, NEUROPATHY Psychiatric: anxiety Endocrine: hypothyroidism, DIABETES (TYPE II) Blood Disorders: NONE Cancer(s): NONE LOCAL BULK DRIVER/Reproductive: NONE Other Medical Hx: Gastric Bypass Surgery, Frequent Falls Surgical History Surgical History: GASTRIC BYPASS PACEMAKER Family History Relations & Conditions If Any: Relation not specified for: *No pertinent family history Psychosocial History Where Do You Live? [facility] Facility Who Do You Live With? self Services at Home: None Primary Language: Slovenian Smoking Status: Unknown If Ever Smoked ETOH Use: 6 Illicit Drug Use: UTD Functional Ability ADLs Independent: dressing, eating, toileting, bathing. Ambulation: independent, cane, walker, non-ambulatory IADLs Independent: shopping, housework, finances, food prep, telephone, transportation , medication admin. ECHO Results (as available) Report: CONCLUSIONS 1. Minimal aortic sclerosis is present in a tricuspid aortic valve with no valvular stenosis or insufficiency. 2. Mitral leaflet thickening is present with mild mitral insufficiency and mild left atrial dilatation. 3. A physiologic pericardial effusion is present. 4. The left ventricular chamber size is normal with an ejection fraction of greater than 55% and no resting wall motion abnormalities. 5. The right heart structures are grossly normal. Mild tricuspid insufficiency is present with no evidence of pulmonary hypertension. 6. Pacemaker / AICD wires are present in the right heart chambers. 7. No definite embolic sources are identified on this study. If cllinically indicated, a SAKSHI would better exclude potential embolic sources. Exam & Diagnostic Data Vital Signs and I&O Vital Signs Date Time Temp Pulse Resp B/P Pulse O2 O2 Flow FiO2 Ox Delivery Rate 09/19 1957 91 110/58 09/19 1354 98.5 117 11 136/78 98 Room Air 09/19 1246 98.8 128 18 137/70 98 Room Air 09/19 1214 Room Air Room Air 09/19 1136 98.1 123 18 108/71 97 Room Air 09/19 1000 Room Air Room Air 09/19 0940 97.9 115 15 120/79 97 Room Air Room Air Intake & Output 09/19 1600 09/19 0800 09/19 0000 09/18 1600 09/18 0800 09/18 0000 Intake Total 0 Output Total Balance 0 Intake, Oral 0 Physical Exam: General Appearance No Acute Distress, COnversant but confused Skin No Rashes, No Breakdown Cardiovascular IRREGULARLY IRREGULAR RATE AND RHYTHM; 2/6 ASHLYN Lungs Clear to Auscultation Abdomen Normal Bowel Sounds, Soft, No Tenderness Neurological Grossly non focal Extremities No Clubbing, No Cyanosis, No Edema Vascular Normal Pulses Labs/Robbie Results: Laboratory Tests 09/19 09/19 09/19 1845 1735 1157 Chemistry Sodium Cancelled Potassium Cancelled Chloride Cancelled Carbon Dioxide Cancelled Anion Gap Cancelled BUN Cancelled Creatinine Cancelled BUN/Creatinine Ratio Cancelled Magnesium (1.6 - 2.3 mg/dL) 1.4 L Hematology CBC w Diff Cancelled WBC Cancelled RBC Cancelled Hgb Cancelled Hct Cancelled MCV Cancelled MCH Cancelled RDW Cancelled Plt Count Cancelled MPV Cancelled PUBS MCHC Cancelled Urines Urine Color (YEL,AMB,STR) YEL Urine Clarity (CLEAR) CLEAR Urine pH (5.0 - 8.0) 7.5 Ur Specific [place] (1.001 - 1.035) 1.015 Urine Protein (NEG,<30 MG/DL) NEG Urine Ketones (NEG) NEG Urine Nitrite (NEG) POS H Urine Bilirubin (NEG) NEG Urine Urobilinogen (0.1 - 1.0 EU/dl) 1.0 Ur Leukocyte Esterase (NEG) TRACE H Ur Microscopic SEDIMENT EXAMINED Urine RBC (0 - 5 /HPF) RARE Urine WBC (0 - 2 /HPF) 10-15 H Ur Epithelial Cells (NONE,FEW) RARE Urine Hemoglobin (NEG) NEG Urine Glucose (N MG/DL) NEG 09/19 0949 Chemistry Sodium (137 - 145 mmol/L) 139 Potassium (3.5 - 5.1 mmol/L) 4.5 Chloride (98 - 107 mmol/L) 104 Carbon Dioxide (22 - 30 mmol/L) 22 Anion Gap (5 - 16) 13 BUN (7 - 17 mg/dL) 24 H Creatinine (0.5 - 1.0 mg/dL) 0.7 Estimated GFR (>60 ml/min) > 60 BUN/Creatinine Ratio (7 - 25 %) 34.3 H Glucose (65 - 99 mg/dL) 103 H Calcium (8.4 - 10.2 mg/dL) 9.1 Total Bilirubin (0.2 - 1.3 mg/dL) 0.9 AST (14 - 36 U/L) 22 ALT (9 - 52 U/L) 25 Alkaline Phosphatase (<127 U/L) 31 Troponin I (< 0.11 ng/ml) < 0.01 Total Protein (6.3 - 8.2 g/dL) 7.0 Albumin (3.5 - 5.0 g/dL) 3.7 Globulin (1.9 - 4.2 gm/dL) 3.3 Albumin/Globulin Ratio (1.1 - 2.2 %) 1.1 Coagulation PT (9.4 - 12.5 SEC) 19.6 H INR (0.90 - 1.19) 1.88 H APTT (25 - 37 SEC) 31 Hematology CBC w Diff MAN DIFF ORDERED WBC (4.8 - 10.8 /CUMM) 9.2 RBC (4.20 - 5.40 /CUMM) 3.87 L Hgb (12.0 - 16.0 G/DL) 10.5 L Hct (37 - 47 %) 31.3 L MCV (81.0 - 99.0 FL) 81.0 MCH (27.0 - 31.0 PG) 27.2 RDW (11.5 - 14.5 %) 15.3 H Plt Count (130 - 400 /CUMM) 271 MPV (7.4 - 10.4 FL) 7.6 Gran % (42.2 - 75.2 %) 87.9 H Lymphocytes % (20.5 - 51.1 %) 9.2 L Monocytes % (1.7 - 9.3 %) 2.8 Eosinophils % (0 - 5 %) 0.1 Basophils % (0.0 - 2.0 %) 0 L Absolute Granulocytes (1.4 - 6.5 /CUMM) 8.1 H Absolute Lymphocytes (1.2 - 3.4 /CUMM) 0.9 L Absolute Monocytes (0.10 - 0.60 /CUMM) 0.3 Absolute Eosinophils (0.0 - 0.7 /CUMM) 0 Absolute Basophils (0.0 - 0.2 /CUMM) 0 Platelet Estimate (ADEQUATE) ADEQUATE Hypochromic-Microcytic 1+ Anisocytosis 1+ PUBS MCHC (33.0 - 37.0 G/DL) 33.5 Diagnostic Data CXR Results FINDINGS: The exam is limited as the patient was rotated to the right with suboptimal inspiration resulting in low lung volumes. There are mild increased interstitial markings which may be artifactual versus edema. I do not see a focal consolidation. A pacemaker/AICD is noted with leads overlying the right ventricle, unchanged. IMPRESSION: Limited examination as noted above. Possible mild edema versus artifact. Consider follow up imaging with PA and lateral views if the patient is able and thought clinically necessary. Other Results HEad CT: FINDINGS: There is no acute intracranial hemorrhage or abnormal extra-axial collection. No intracranial mass effect or midline shift. Lateral and third ventricles are slightly prominent and there is proportionate prominence of the subarachnoid spaces reflecting a mild degree of global parenchymal volume loss. There are scattered ill-defined foci of hypoattenuation within the periventricular white matter that most likely represent a chronic manifestation of small vessel ischemia. Shaffer-white matter differentiation is preserved and there is no evidence of acute territorial infarct. The calvarium and skull base are intact. Mastoid air cells and middle ear cavities are well aerated. Visualized paranasal sinuses are well-aerated. IMPRESSION: There are chronic small vessel ischemic changes within the periventricular white matter. Grossly no evidence of acute territorial infarct or hemorrhage. Assessment/Plan Assessment/Plan Assessment: 1. Acute confusion/delerium with slurred speech(rule out TIA/stroke) in the setting of subtherapeutic INR 2. History of AF / CM / AICD 3. Hypoglycemia history of diabetes mellitus- 4. History of hypertension / hyperlipidemia 5. History of hypothyroidism 6. History of chronic hypomagnesemia without clear etiology complicated with seizures and polymorphic VT. 7. History of asthma 8. Anemia Recommendations: - Telemetry admission - Full cultures - Check troponins - Check B12 , MG, TSH, etc - Await formal Neurology input - Replete magnesium - Further plans after the above - Formal device interrogation to be arranged. Consult Acknowledgment - Thank you for your consult request.
[2016-09-19 23:28] VITALS: BP 110/70
--- NOTE | 2016-09-20 07:30 | PN- Housestaff ---
TEGAN REYES,SHAWNEE 09/20/16 0729: Subjective Follow-up For: AMS Subjective: Patient this morning was examined at bedside. She was awake and answering questions. She was able to see her full name and date of . But appears to be more confused and repeating sentences. So was trying to pick stuff from table when nothing was there. When questioned was made not able to give it apply. She is otherwise joking around. Spoke to fdc to obtain a baseline of patient's mental status. According to the fdc she is more jovial and witty until prior to the day of admission. Also discussed with a male friend of patient Mr. Reyes who is addressed as next of kin. He also the patient passes Friday patient was doing fine. He had to fish bait picker for the doctor's appointment. He also mentioned that she goes episodes of confusion she doesn't remember things to be done. Patient has been afebrile since admission. White count has been stable. Review of Systems Constitutional: Reports: see HPI. Objective Last 24 Hrs of Vital Signs/I&O Vital Signs Date Time Temp Pulse Resp B/P Pulse O2 O2 Flow FiO2 Ox Delivery Rate 09/20 1425 101.3 09/20 1145 100 122/70 09/20 0818 99.7 96 20 124/64 95 Room Air 09/19 2328 97.5 100 20 110/70 94 Room Air 09/19 1958 91 110/58 Intake & Output 09/20 1600 09/20 0800 09/20 0000 Intake Total 620 1200 Output Total 600 Balance 620 600 Intake, IV 600 600 Intake, Oral 20 600 Number 0 Bowel Movements Output, Urine 600 Patient 230 lb Weight Physical Exam General Appearance: Alert, Cooperative, No Acute Distress Skin: No Rashes Cardiovascular: irregular, systolic murmur present in the right parasternal area Lungs: decreased bilateral breath sounds, basilar crackles Abdomen: Normal Bowel Sounds, Soft Neurological: Strength at 5/5 X4 Ext, speech confused Extremities: No Edema Current Medications: Current Medications Sig/Gary Start time Last Medication Dose Route Stop Time Status Admin Acetaminophen 650 MG Q6P PRN 09/19 1200 AC 09/20 PO 1425 Alprazolam 0.5 MG BID PRN 09/19 1400 AC PO 09/26 1359 Atorvastatin Calcium 20 MG AT BEDTIME 09/19 2199 AC 09/19 PO 2110 Ceftriaxone Sodium 1,000 MG Q24H 09/20 1130 AC 09/20 IV 1146 Cholecalciferol 1,000 IU DAILY 09/20 1000 AC 09/20 PO 1145 Dextrose/Sodium 1,000 ML Q13H 09/19 1345 DC 09/20 Chloride IV 0632 Diltiazem HCl 360 MG DAILY 09/19 1350 AC 09/20 PO 1145 Enoxaparin Sodium 40 MG DAILY 09/20 1000 CAN SC Ezetimibe 10 MG DAILY 09/20 1000 AC 09/20 PO 1145 Furosemide 20 MG DAILY 09/20 1000 AC 09/20 PO 1145 Gabapentin 600 MG Q8 09/19 1400 AC 09/20 PO 1327 Ibuprofen 600 MG Q6P PRN 09/19 1200 AC PO Insulin Aspart 0 TIDAC 09/19 1700 AC 09/20 SC 1329 Insulin Human Regular 0 Q6 09/19 1800 CAN SC Levothyroxine Sodium 0.0375 MG DAILY AC 09/20 0700 AC 09/20 PO 0632 Lisinopril 2.5 MG DAILY 09/19 1353 AC 09/20 PO 1145 Magnesium Chloride 64 MG TID 09/19 1600 AC 09/20 PO 1145 Magnesium Oxide 400 MG ONE ONE 09/20 2345 AC PO 09/20 2346 Magnesium Oxide 400 MG ONE ONE 09/19 1930 DC 09/19 PO 09/19 Warfarin Sodium 7.5 MG COUMADIN 1700 ONE 09/20 1700 CAN PO 09/20 170 Warfarin Sodium 7.5 MG COUMADIN 1700 ONE 09/19 1700 DC 09/19 PO 09/19 [id number] Last 24 Hrs of Lab/Robbie Results Last 24 Hrs of Labs/Mics: Laboratory Tests 09/20/16 0705: Anion Gap 10, Estimated GFR > 60, BUN/Creatinine Ratio 22.9, Magnesium 1.5 L, PT 17.9 H, INR 1.71 H, CBC w Diff NO MAN DIFF REQ, RBC 3.60 L, MCV 81.3, MCH 27.3, RDW 15.7 H, MPV 8.1, Gran % 71.2, Lymphocytes % 17.6 L, Monocytes % 10.3 H, Eosinophils % 0.6, Basophils % 0.3, Absolute Granulocytes 5.3, Absolute Lymphocytes 1.3, Absolute Monocytes 0.8 H, Absolute Eosinophils 0, Absolute Basophils 0, PUBS MCHC 33.6 09/20/16 0600: Hemoglobin A1c Pending 09/19/16 2210: Magnesium 1.3 L, Ammonia < 9 L, Troponin I < 0.01, Vitamin B12 240, 25-OH Vitamin D Total 13.7 L, TSH 1.180 09/19/161844: Urine Color YEL, Urine Clarity CLEAR, Urine pH 7.5, Ur Specific [place] 1.015, Urine Protein NEG, Urine Ketones NEG, Urine Nitrite POS H, Urine Bilirubin NEG, Urine Urobilinogen 1.0, Ur Leukocyte Esterase TRACE H, Ur Microscopic SEDIMENT EXAMINED, Urine RBC RARE, Urine WBC 10-15 H, Ur Epithelial Cells RARE, Urine Hemoglobin NEG, Urine Glucose NEG 09/19/16 173: Magnesium 1.4 L Microbiology 09/19 1844 URINE ROUT: Urine Culture - RES 09/19 1734 BLOOD: Blood Culture - RES Assessment/Plan Assessment: 1. Altered mental status: No fever/white count currently on IV antibiotics for UTI. Culture pending. Patient was today we will obtain ID input. 2. atrial fibrillation on Coumadin: INR subtherapeutic. Will dose him in 3. Metabolic encephalopathy due to urinary tract infection with history of recurrent UTI: Currently on ceftriaxone which we will continue. Next 4. Diabetes mellitus history A1c pending Will continue on NovoLog sliding scale next 5. History of hypertension will continue on her home medication next 6. History of chronic hypomagnesemia without clear etiology: We will repeat her medication levels with by mouth and IV mag DVT prophylaxis with Coumadin Problem List: 1. Afib 2. Somnolence 3. HLD (hyperlipidemia) 4. HTN (hypertension) Pain Ratin Pain Location: headache Pain Goal: Remain pain free Pain Plan: tylenol Tomorrow's Labs & Rationales: needed SAROJ REYES,MARK 09/20/16 1105: Attending MD Review Statement Attending Statement Attending MD Statement: examined this patient, discuss w/resident/PA/HAZARDOUS MATERIALS WASTE TECHNICIAN, agreed w/resident/PA/HAZARDOUS MATERIALS WASTE TECHNICIAN, reviewed EMR data (avail), discussed with nursing Attending Assessment/Plan: Patient remains confused. We are trying to get a better history from the fdc as to what her baseline mentation is slight. But in review of previous H&P's it appears that she is normally alert, oriented, conversational and not confused. She is a 65-year-old female with a history of gastric bypass, chronic hypomagnesemia, diabetes with a low hemoglobin A1c (most recently in the sixes), A. fib on Coumadin who was sent in from the fdc for an acute confusional state. Neurology feels that this is not a stroke. She did have a positive UA and urine culture and we have her on ceftriaxone but I will need ID' s help to clarify whether she really needs this and whether we need to LP her for a questionable encephalitis. Will get a urine toxicology to make sure there is no opiate or any sedative that's contributing to this. We'll also get a hemoglobin A1c to see that she is not having hypoglycemia that's causing this.
[2016-09-20 08:18] VITALS: BP 124/64
[2016-09-20 08:21] LABS: PT 17.9 SEC (9.4-12.5)
[2016-09-20 08:25] LABS: ABSOLUTE BASOPHIL COUNT 0 /CUMM (0.0-0.2); ABSOLUTE EOSINOPHIL COUNT 0 /CUMM (0.0-0.7); ABSOLUTE GRANULOCYTE CT 5.3 /CUMM (1.4-6.5); ABSOLUTE LYMPH COUNT 1.3 /CUMM (1.2-3.4); ABSOLUTE MONOCYTE COUNT 0.8 /CUMM (0.10-0.60); BASOPHIL % 0.3 % (0.0-2.0); EOSINOPHIL % 0.6 % (0-5); GRANULOCYTE % 71.2 % (42.2-75.2); HEMATOCRIT 29.3 % (37-47); MEAN CORPUSCULAR HGB 27.3 PG (27.0-31.0); MEAN CORPUSCULAR HGB CONC 33.6 G/DL (33.0-37.0); MEAN CORPUSCULAR VOLUME 81.3 FL (81.0-99.0); MEAN PLATELET VOLUME 8.1 FL (7.4-10.4); PLATELET COUNT 257 /CUMM (130-400); RBC DISTRIBUTION WIDTH 15.7 % (11.5-14.5); WHITE BLOOD CELL COUNT 7.4 /CUMM (4.8-10.8)
--- NOTE | 2016-09-20 12:57 | PN- Cardiology ---
Subjective Subjective: The patient remains alert but clearly confused. No specific complaints. Objective Vital Signs and I&Os Vital Signs Date Time Temp Pulse Resp B/P Pulse O2 O2 Flow FiO2 Ox Delivery Rate 09/20 1145 100 122/70 09/20 0818 99.7 96 20 124/64 95 Room Air 09/19 2328 97.5 100 20 110/70 94 Room Air 09/19 1958 91 110/58 09/19 1354 98.5 117 11 136/78 98 Room Air Intake & Output 09/20 1600 09/20 0800 09/20 0000 09/19 1600 09/19 0800 09/19 0000 Intake Total 620 1200 0 Output Total 600 Balance 620 600 0 Intake, IV 600 600 Intake, Oral 20 600 0 Number 0 Bowel Movements Output, Urine 600 Patient 230 lb Weight Physical Exam: Unchanged Current Medications: Current Medications Sig/Gary Start time Last Medication Dose Route Stop Time Status Admin Acetaminophen 650 MG Q6P PRN 09/19 1200 AC PO Alprazolam 0.5 MG BID PRN 09/19 1400 AC PO 09/26 1359 Atorvastatin Calcium 20 MG AT BEDTIME 09/19 2200 AC 09/19 PO 2110 Ceftriaxone Sodium 1,000 MG Q24H 09/20 1130 AC 09/20 IV 1146 Ceftriaxone Sodium 1,000 MG DAILY 09/19 1345 DC IV Cholecalciferol 1,000 IU DAILY 09/20 1000 AC 09/20 PO 1145 Dextrose/Sodium 1,000 ML Q13H 09/19 1345 DC 09/20 Chloride IV 0632 Diltiazem HCl 360 MG DAILY 09/19 1350 AC 09/20 PO 1145 Enoxaparin Sodium 40 MG DAILY 09/20 1000 CAN SC Ezetimibe 10 MG DAILY 09/20 1000 AC 09/20 PO 1145 Furosemide 20 MG DAILY 09/20 1000 AC 09/20 PO 1145 Gabapentin 600 MG Q8 09/19 1400 AC 09/20 PO 0631 Ibuprofen 600 MG Q6P PRN 09/19 1200 AC PO Insulin Aspart 0 TIDAC 09/19 1700 AC SC Insulin Human Regular 0 Q6 09/19 1800 CAN SC Levothyroxine Sodium 0.0375 MG DAILY AC 09/20 0700 AC 09/20 PO 0632 Lisinopril 2.5 MG DAILY 09/19 1353 AC 09/20 PO 1145 Magnesium Chloride 64 MG TID 09/19 1600 AC 09/20 PO 1145 Magnesium Oxide 400 MG ONE ONE 09/20 2345 AC PO 09/20 2346 Magnesium Oxide 400 MG ONE ONE 09/19 1929 DC 09/19 PO 09/19 Warfarin Sodium 7.5 MG COUMADIN 1700 ONE 09/19 170 DC 09/19 PO 09/19 Results Last 48 Hrs of Labs/Mics: Laboratory Tests 09/20/16 0705: Anion Gap 10, Estimated GFR > 60, BUN/Creatinine Ratio 22.9, Magnesium 1.5 L, PT 17.9 H, INR 1.71 H, CBC w Diff NO MAN DIFF REQ, RBC 3.60 L, MCV 81.3, MCH 27.3, RDW 15.7 H, MPV 8.1, Gran % 71.2, Lymphocytes % 17.6 L, Monocytes % 10.3 H, Eosinophils % 0.6, Basophils % 0.3, Absolute Granulocytes 5.3, Absolute Lymphocytes 1.3, Absolute Monocytes 0.8 H, Absolute Eosinophils 0, Absolute Basophils 0, PUBS MCHC 33.6 09/20/16 0600: Hemoglobin A1c Pending 09/19/16 2210: Magnesium 1.3 L, Ammonia < 9 L, Troponin I < 0.01, Vitamin B12 240, 25-OH Vitamin D Total 13.7 L, TSH 1.180 09/19/16 1845: Urine Color YEL, Urine Clarity CLEAR, Urine pH 7.5, Ur Specific [place] 1.015, Urine Protein NEG, Urine Ketones NEG, Urine Nitrite POS H, Urine Bilirubin NEG, Urine Urobilinogen 1.0, Ur Leukocyte Esterase TRACE H, Ur Microscopic SEDIMENT EXAMINED, Urine RBC RARE, Urine WBC 10-15 H, Ur Epithelial Cells RARE, Urine Hemoglobin NEG, Urine Glucose NEG 09/19/16 1735: Magnesium 1.4 L 09/19/16 1325: Urine Opiates Screen 932.00, Methadone Screen 47, Barbiturate Screen < 60, Ur Phencyclidine Scrn < 6.00, Amphetamines Screen < 100, U Benzodiazepines Scrn < 85, Urine Cocaine Screen < 50, Urine Cannabis Screen < 5.00 09/19/16 1157: Sodium Cancelled, Potassium Cancelled, Chloride Cancelled, Carbon Dioxide Cancelled, Anion Gap Cancelled, BUN Cancelled, Creatinine Cancelled, BUN/ Creatinine Ratio Cancelled, CBC w Diff Cancelled, WBC Cancelled, RBC Cancelled, Hgb Cancelled, Hct Cancelled, MCV Cancelled, MCH Cancelled, RDW Cancelled, Plt Count Cancelled, MPV Cancelled, PUBS MCHC Cancelled 09/19/16 0949: Anion Gap 13, Estimated GFR > 60, BUN/Creatinine Ratio 34.3 H, Glucose 103 H, Calcium 9.1, Total Bilirubin 0.9, AST 22, ALT 25, Alkaline Phosphatase 31, Troponin I < 0.01, Total Protein 7.0, Albumin 3.7, Globulin 3.3, Albumin/ Globulin Ratio 1.1, PT 19.6 H, INR 1.88 H, APTT 31, CBC w Diff MAN DIFF ORDERED, RBC 3.87 L, MCV 81.0, MCH 27.2, RDW 15.3 H, MPV 7.6, Gran % 87.9 H, Lymphocytes % 9.2 L, Monocytes % 2.8, Eosinophils % 0.1, Basophils % 0 L, Absolute Granulocytes 8.1 H, Absolute Lymphocytes 0.9 L, Absolute Monocytes 0.3, Absolute Eosinophils 0, Absolute Basophils 0, Platelet Estimate ADEQUATE, Hypochromic-Microcytic 1+, Anisocytosis 1+, PUBS MCHC 33.5 Assessment/Plan Assessment/Plan Assessment: 1. Acute confusion/delerium with slurred speech(rule out TIA/stroke) in the setting of subtherapeutic INR 2. History of AF / CM / AICD 3. Hypoglycemia history of diabetes mellitus- 4. History of hypertension / hyperlipidemia 5. History of hypothyroidism 6. History of chronic hypomagnesemia without clear etiology complicated with seizures and polymorphic VT. 7. History of asthma 8. Anemia Recommendations: - Continue telemetry for now - Full cultures - Check B12 , MG, TSH, etc - Neurology input noted - Replete magnesium - Further plans after the above - Formal device interrogation to be arranged. Continue telemetry? Yes
--- NOTE | 2016-09-20 15:03 | Cons- Infect Disease ---
General Information and HPI Consulting Request Date of Consult: 09/20/16 Requested By: JASVIR PLUMMER MD Reason for Consult: Altered mental status/urinary tract infection Source of Information: patient, old records Exam Limitations: unable to give history, confusion History of Present Illness: This is a 65-year-old woman, [facility] resident, with a history of diabetes, atrial fibrillation, maintained on Coumadin, seizures, cardiomyopathy status post AICD, status post several hospitalizations over the past few months, mostly for falls related to osteoarthritis of both knees, status post intra-articular steroids with plans for right knee replacement in the next few weeks, with multiple positive urine cultures over the last 2 months, treated with several courses of antibiotics, most recently Nitrofurantoin until the week prior to admission, admitted on September 19 with an acute change in mental status and "slurred speech" with a blood sugar in the 60s. On admission she was afebrile and was felt to have a left facial droop. Laboratory data revealed a white blood cell count of 9000, BUN/creatinine 24 and 0.7, with normal liver enzymes. INR 1.88. Chest x-ray revealed mild increased interstitial markings. CT of the head revealed chronic small vessel ischemic changes within the periventricular white matter. She was given Narcan spray without any improvement. She was begun on Ceftriaxone, with no urinalysis or urine culture obtained, apparently because a urinalysis and urine culture were sent from the [facility] on the day prior to admission revealing 25-50 WBCs and greater than 100,000 colonies of gram-negative rods. She has remained confused overnight. She was afebrile until this afternoon, when she was found to be febrile to 101.4. She is unable to provide any history at this time secondary to her confusion and aphasia. Allergies/Medications Allergies: Coded Allergies: acetaminophen (09/19/16) oxycodone (From PERCOCET) (UNKNOWN 09/19/16) morphine (HEADACHES, SWEATING 09/19/16) nitroglycerin (MADE MY HEART GO CRAZY 09/19/16) Home Med List: Acetaminophen With Codeine (Acetaminophen-Cod #3 Tablet) 300 MG-30 MG TABLET 1 TAB PO TID PAIN (Reported) Albuterol Sulfate (Proair Hfa) 0.09 MG/Actuation WING 2 PUFF INH TID PRN ASTHMA (Reported) Alprazolam 1 MG TABLET 1 TAB PO DAILY ANXIETY (Reported) Atorvastatin Calcium (Lipitor) 20 MG TABLET 1 TAB PO BEDTIME HIGH CHOLESTEROL (Reported) Cephalexin (Keflex) 500 MG CAPSULE 1 CAP PO BID UTI Diltiazem HCl (Diltiazem ER) 360 MG CAPSULE.ER 1 CAP PO DAILY AFIB (Reported) Ezetimibe (Zetia) 10 MG TABLET 1 TAB PO DAILY HIGH CHOLESTEROL (Reported) Furosemide 20 MG TABLET 1 TAB PO DAILY HTN (Reported) Gabapentin 600 MG TABLET 1 TAB PO BID NEUROPATHY (Reported) Insulin Aspart, Recombinant (Novolog Flexpen) (Unknown Strength) INSULN.PEN DIABETES (Reported) Dose <80mg/dl Initiate hypoglycemic protocol 80-150mg/dl 2units 151-200mg/dl 4units 201-250mg/dl 6units 251-300mg/dl 8units 301-350mg/dl 10units 351-400mg/dl 12units more than 400mg/dl 14units Bedtime 201-250mg/dl 2units 251-300mg/dl 4units 301-350mg/dl 6units 351-400mg/dl 8units more than 400mg/dl 10units Insulin Glargine, Recombinan (Lantus Solostar) 100 U/ML RAVI 40 UNITS SC QPM DIABETES (Reported) GIVEN 7 UNITS Levothyroxine Sodium (Synthroid) 25 MCG TABLET 1.5 TAB PO DAILY AC hypothyroidism Lisinopril 2.5 MG TABLET 1 TAB PO DAILY HTN (Reported) Magnesium Chloride (Slow-Mag) 71.5 MG TABLET.DR 1 TAB PO TID SUPPLEMENT ( Reported) Meclizine HCl 25 MG TABLET 1 TAB PO BID VERTIGO (Reported) Metformin Hydrochloride/Susan (Janumet 1000 MG-50 MG) 1 TAB TAB 1 TAB PO BID DIABETES (Reported) Venlafaxine HCl (Venlafaxine HCl ER) 150 MG CAP.ER.24H 1 CAP PO DAILY DEPRESSION (Reported) Warfarin Sodium (Coumadin) 5 MG TABLET 1 TAB PO DAILY AFIB (Reported) please dose warfarin as per INR. Warfarin Sodium (Coumadin) 5 MG TABLET 5.5 MG PO DAILY AFIB (Reported) ALTERNATES WITH 5 MG COUMADIN PO DAILY Past History Travel History Traveled to [place] past 21 day No Medical History Blood Transfusion Hx: No Neurological: CVA, peripheral neuropathy, seizure, TIA EENT: NONE Cardiovascular: AFIB, cardiomyopathy, hypertension, hyperlipidemia, syncope, ORTHOSTATIC HYPOTENSION Respiratory: asthma, COPD, obstructive sleep apnea Gastrointestinal: GASTRIC BYPASS Hepatic: NONE Renal: UTI Musculoskeletal: osteoarthritis, NEUROPATHY Psychiatric: anxiety Endocrine: hypothyroidism, vitamin D deficiency, DIABETES (TYPE II), adrenal adenoma Blood Disorders: PE Cancer(s): NONE 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 Assisted Facility Who Do You Live With? self Services at Home: None Primary Language: Congolese Smoking Status: Unknown If Ever Smoked ETOH Use: 6 Illicit Drug Use: UTD Functional Ability ADLs Independent: dressing, eating, toileting, bathing. Ambulation: independent, cane, walker, non-ambulatory IADLs Independent: shopping, housework, finances, food prep, telephone, transportation , medication admin. Review of Systems Comments Unobtainable Exam & Diagnostic Data Last 24 Hrs of Vital Signs/I&O Vital Signs Date Time Temp Pulse Resp B/P Pulse O2 O2 Flow FiO2 Ox Delivery Rate 09/20 1425 101.3 09/20 1145 100 122/70 09/20 0818 99.7 96 20 124/64 95 Room Air 09/19 2328 97.5 100 20 110/70 94 Room Air 09/19 1958 91 110/58 Intake & Output 09/20 1600 09/20 0800 09/20 0000 Intake Total 620 1200 Output Total 600 Balance 620 600 Intake, IV 600 600 Intake, Oral 20 600 Number 0 Bowel Movements Output, Urine 600 Patient 230 lb Weight Physical Exam Other Physical Findings: She is awake and alert, but confused, disoriented with an expressive aphasia. She appears in no acute distress. MAXIMUM TEMPERATURE 101.4. Skin reveals no rash. HEENT exam is negative. Neck is supple with no adenopathy. Lungs are clear. Heart regular rhythm with no murmur. Abdomen is soft, nontender with positive bowel sounds. Back no CVA tenderness. Extremities bilateral knee swelling, with decreased range of motion; no cyanosis, clubbing or edema. Neuro expressive aphasia, with no focality appreciated. Last 24 Hours of Lab Results: Laboratory Tests 09/20 09/20 09/19 0705 0600 2210 Chemistry Sodium (137 - 145 mmol/L) 138 Potassium (3.5 - 5.1 mmol/L) 4.2 Chloride (98 - 107 mmol/L) 104 Carbon Dioxide (22 - 30 mmol/L) 24 Anion Gap (5 - 16) 10 BUN (7 - 17 mg/dL) 16 Creatinine (0.5 - 1.0 mg/dL) 0.7 Estimated GFR (>60 ml/min) > 60 BUN/Creatinine Ratio (7 - 25 %) 22.9 Hemoglobin A1c Pending Magnesium (1.6 - 2.3 mg/dL) 1.5 L 1.3 L Ammonia (9 - 30 umol/L) < 9 L Troponin I (< 0.11 ng/ml) < 0.01 Vitamin B12 (239 - 931 pg/mL) 240 25-OH Vitamin D Total (30 - 100 ng/ml) 13.7 L TSH (0.270 - 4.200 uIU/mL) 1.180 Coagulation PT (9.4 - 12.5 SEC) 17.9 H INR (0.90 - 1.19) 1.71 H Hematology CBC w Diff NO MAN DIFF REQ WBC (4.8 - 10.8 /CUMM) 7.4 RBC (4.20 - 5.40 /CUMM) 3.60 L Hgb (12.0 - 16.0 G/DL) 9.8 L Hct (37 - 47 %) 29.3 L MCV (81.0 - 99.0 FL) 81.3 MCH (27.0 - 31.0 PG) 27.3 RDW (11.5 - 14.5 %) 15.7 H Plt Count (130 - 400 /CUMM) 257 MPV (7.4 - 10.4 FL) 8.1 Gran % (42.2 - 75.2 %) 71.2 Lymphocytes % (20.5 - 51.1 %) 17.6 L Monocytes % (1.7 - 9.3 %) 10.3 H Eosinophils % (0 - 5 %) 0.6 Basophils % (0.0 - 2.0 %) 0.3 Absolute Granulocytes (1.4 - 6.5 /CUMM) 5.3 Absolute Lymphocytes (1.2 - 3.4 /CUMM) 1.3 Absolute Monocytes (0.10 - 0.60 /CUMM) 0.8 H Absolute Eosinophils (0.0 - 0.7 /CUMM) 0 Absolute Basophils (0.0 - 0.2 /CUMM) 0 PUBS MCHC (33.0 - 37.0 G/DL) 33.6 09/19 09/19 1845 1735 Chemistry Magnesium (1.6 - 2.3 mg/dL) 1.4 L Urines Urine Color (YEL,AMB,STR) YEL Urine Clarity (CLEAR) CLEAR Urine pH (5.0 - 8.0) 7.5 Ur Specific [place] (1.001 - 1.035) 1.015 Urine Protein (NEG,<30 MG/DL) NEG Urine Ketones (NEG) NEG Urine Nitrite (NEG) POS H Urine Bilirubin (NEG) NEG Urine Urobilinogen (0.1 - 1.0 EU/dl) 1.0 Ur Leukocyte Esterase (NEG) TRACE H Ur Microscopic SEDIMENT EXAMINED Urine RBC (0 - 5 /HPF) RARE Urine WBC (0 - 2 /HPF) 10-15 H Ur Epithelial Cells (NONE,FEW) RARE Urine Hemoglobin (NEG) NEG Urine Glucose (N MG/DL) NEG Last 24 Hours of Robbie Results: Blood cultures 2 September 19 negative Urine culture September 19 negative Urine culture September 18 greater than 100,000 colonies of Escherichia coli resistant only to Bactrim Diagnostic Data Recent Imaging Findings: Chest x-ray September 19, personally reviewed, reveals mildly increased interstitial markings CT of the head September 19 reveals chronic small vessel ischemic changes within the periventricular white matter Assessment/Plan Assessment/Plan Impression: This is a 65-year-old woman with a history of multiple medical problems including diabetes, atrial fibrillation, maintained on Coumadin, seizures, CVA/ TIA, cardiomyopathy and osteoarthritis, status post frequent falls attributed to this, treated several times over the last several months for what appears to be asymptomatic bacteriuria, admitted on September 19 with an acute change in mental status, found to be aphasic, initially afebrile, and with a normal white blood cell count, but now with the development of a fever. Given her encephalopathy I feel that encephalitis must be ruled out, particularly with her fever. Possible etiologies would include HSV, other viral etiologies and Lyme. Unfortunately, because of her AICD, an MRI cannot be done. Other causes for her altered mental status could include a CVA or a seizure, given her history of both. Sepsis, for example secondary to a urinary tract infection, is possible but seems unlikely given her normal white blood cell count and lack of any other obvious focus of infection. Suggestion: 1. Would pursue a lumbar puncture once her INR is corrected below 1.5 (have discussed with IR) 2. CT of the head with IV contrast 3. Renal ultrasound or CT of the abdomen and pelvis to rule out obstruction 4. Consider EEG 5. Lyme titer 6. Begin Acyclovir 700 mg IV every 8 hours 7. Continue Ceftriaxone pending above Consult Acknowledgment - Thank you for your consult request.
--- NOTE | 2016-09-20 15:37 | Event Note ---
Event Note Event Note: Spoke to Dr. Fernandez Brar MD. Pt remains confused with questionable expressive aphasia and also spiked a temperature today. Given all of these findings he feels an LP is indicated to rule out encephalitis. He and the resident spoke to the interventional radiologist Dr. Snowden and given the elevated INR we are going to pursue the LP after reversing the INR. We are going to give her 2 units of FFP starting at midnight tonight and check an INR stat at 6 AM in the morning. If the INR is less than or equal to 1.5 than the resident will attempt the LP under the supervision of . I personally spoke to Dr. Buckley. The interventional radiologist Dr. Soares has also been notified by Dr. Snowden should they be required to come in to do the LP. In the interim we are going to start acyclovir for ?HSV encephalitis and we are going to continue the ceftriaxone. Patient's next of kin Mr. Reyes was notified of all of the above and he consented for the FFP and the LP. We also confirmed with the assisted that this is the next of kin to notify.
[2016-09-20 16:02] VITALS: BP 100/58
--- NOTE | 2016-09-20 16:02 | Event Note ---
Event Note Event Note: Consent for the procedure/ FFP Transfusion was obtained from a male friend Mr. Ramakrishna Reyes was notified as next of kin in EMR. Patient has a sister, number not available in the EMR. If she stops by later during the day will discuss with her and obtain a separate consent.
--- NOTE | 2016-09-20 16:35 | Event Note ---
Event Note Event Note: Patient had a temperature of 101.3 at 2. 25PM. Fernandez Brar MD was notified who recommended that encephalitis to be considered in a patient with altered mental status and fever. She will need an lumbar puncture to ruling out bacterial infection/HSV encephalitis. Unfortunately patient is on Coumadin and received 7.5 mg of Coumadin yesterday and her current INR is 1.71. Spoke to IR physician Dr. Snowden who recommended that lumbar puncture cannot be done as that is a high risk for epidural bleed. Decision was made to reverse her INR with fresh frozen plasma starting midnight, obtain PT INR stat in the morning and if less than 1.5 the a.m. team will go ahead and attempt lumbar puncture. If unsuccessful IR on-call physician will be available for doing the lumbar puncture. (Was confirmed by Dr. Snowden who already spoke to the on-call physician over the phone) Meanwhile we will treat her with acyclovir as this would not affect HSV PCR, obtain CT with IV contrast to look for temporal lobe involvement and HSV and obtain renal ultrasound to rule out obstruction as recommended by Fernandez Brar MD. Avoid benzos, will hold Coumadin today. No NSAIDs as it has and elevated activity which can affect the procedure. Avoid Toradol. This was signed out to the evening team and to the on-call team tomorrow. Nursing staff updated.
--- NOTE | 2016-09-20 17:23 | ECHOCARDIOGRAM REPORT ---
ROSARIO CLAYTON Age: 65 : 1950 Gender: F Exam Date: 09/20/2016 11:08 Exam Location: [facility] Ht (in): 69 Wt (lb): 230 BSA: 2.29 BP: 136 / 78 Ordering Physician: TANYA HERRERA MD Referring Physician: TANYA HERRERA MD Technologist: Vivek Gray RUST Room Number: 185-01 Indications: AFIB/FLUTTER Rhythm: Atrial fibrillation Technical Quality: Fair FINDINGS Left Ventricle Normal global left ventricular size, wall thickness, systolic function with no obvious regional wall motion abnormalities. Normal left ventricular ejection fraction estimated at 55-60%. Right Ventricle Mild right ventricular dilatation. Right Atrium Mild right atrial dilatation. Left Atrium Moderate left atrial dilatation. Mitral Valve Mitral valve thickened. Trace to mild mitral regurgitation. Aortic Valve Trileaflet aortic valve. Focal thickening of the aortic valve cusps. No aortic stenosis. No aortic regurgitation. Tricuspid Valve Tricuspid valve not well visualized, grossly normal. Mild-to- moderate tricuspid regurgitation. Right ventricular systolic pressure estimated at 26 mmHg. Pulmonic Valve Pulmonic valve not well visualized, grossly normal. Trace pulmonic regurgitation. Pericardium No pericardial effusion. Great Vessels Aortic root and proximal ascending aorta not well visualized, grossly normal. CONCLUSIONS 1. Minimal aortic sclerosis is present with no valvular stenosis or insufficiency. 2. Mitral leaflet thickening is present with minimal to mild mitral insufficiency and moderate left atrial enlargement. 3. There is no pericardial fluid detected. 4. The left ventricular chamber size and systolic function are normal. 5. Mild enlargement of the right heart chambers is present with mild to moderate tricuspid insufficiency, minimal pulmonic insufficiency and no evidence of pulmonary hypertension. 6. Pacemaker wires are noted in the right heart chambers. Dilcia Patterson M.D. (Electronically Signed) Final Date: 20 September 2016 17:22 MEASUREMENTS (Male / Female) Normal Values 2D ECHO LV Diastolic Diameter PLAX 5.4 cm 4.2 - 5.9 / 3.9 - 5.3 cm LV Systolic Diameter PLAX 3.9 cm 2.1 - 4.0 cm LV Fractional Shortening PLAX 27.8 % 25 - 46 % LV Ejection Fraction 2D Teich 53.4 % IVS Diastolic Thickness 1.1 cm LVPW Diastolic Thickness 0.9 cm LV Relative Wall Thickness 0.4 LVOT Diameter 1.9 cm Aortic Root Diameter 3.0 cm LA Systolic Diameter LX 4.9 cm 3.0 - 4.0 / 2.7 - 3.8 cm LV Ejection Fraction MOD BP 54.3 % >= 55 % LV Diastolic Length 4C 8.1 cm 6.9 - 10.3 cm LV Diastolic Area 4C 35.3 cm LV Diastolic Volume MOD 4C 129.0 cm LV Ejection Fraction MOD 4C 55.0 % LV Stroke Volume MOD 4C 71.0 cm LV Systolic Length 4C 7.0 cm LV Systolic Area 4C 22.0 cm LV Systolic Volume MOD 4C 58.0 cm LV Ejection Fraction MOD 2C 52.4 % LV Diastolic Volume 4C AL 131.4 cm 85 - 139 / 69 - 109 cm LV Systolic Volume 4C AL 58.6 cm LV Ejection Fraction 4C AL 55.4 % LV Stroke Volume 4C AL 72.8 cm LV Ejection Fraction 2C AL 53.8 % LA Volume 97.0 cm 18 - 58 / 22 - 52 cm Ascending Aorta Diameter 3.1 cm DOPPLER AV Peak Velocity 141.0 cm/s AV Peak Gradient 8.0 mmHg AV Mean Velocity 95.8 cm/s AV Mean Gradient 4.0 mmHg AV Velocity Time Integral 22.6 cm LVOT Peak Velocity 92.5 cm/s LVOT Peak Gradient 3.4 mmHg LVOT Mean Velocity 63.5 cm/s LVOT Mean Gradient 2.0 mmHg LVOT Velocity Time Integral 18.0 cm LVOT Stroke Volume 51.0 cm AV Area Cont Eq vti 2.3 cm AV Area Cont Eq pk 1.9 cm MV Peak Velocity 126.0 cm/s MV Peak Gradient 6.4 mmHg MV Mean Velocity 75.6 cm/s MV Mean Gradient 3.0 mmHg Mitral E Point Velocity 96.5 cm/s MV PHT Velocity 130.0 cm/s MV Deceleration Edmunds 677.0 cm/s MV Pressure Half Time 57.6 ms MV Area PHT 3.8 cm MV Deceleration Time 95.0 ms TR Peak Velocity 267.0 cm/s TR Peak Gradient 28.5 mmHg PV Peak Velocity 80.3 cm/s PV Peak Gradient 2.6 mmHg PV Mean Velocity 52.9 cm/s PV Mean Gradient 1.0 mmHg PV Velocity Time Integral 13.4 cm
--- NOTE | 2016-09-20 17:32 | ULTRASOUND REPORT ---
EXAMINATION: US RETROPERITONEAL COMPLETE (RENAL) CLINICAL INFORMATION: Assess for urinary tract obstruction. COMPARISON: CT scan of the abdomen and pelvis 10/18/2013. TECHNIQUE: Real-time imaging of the kidneys and bladder. FINDINGS: RIGHT KIDNEY: 11.7 x 4.9 x 5.1 cm (SAG x AP x TRV). The kidney is normal in size, contour, and echogenicity. Renal cortical thickness is normal. No calculi or focal parenchymal lesions. No hydronephrosis. LEFT KIDNEY: 10.5 x 6.1 x 5.4 cm (SAG x AP x TRV). The kidney is normal in size, contour, and echogenicity. Renal cortical thickness is normal. No calculi or focal parenchymal lesions. No hydronephrosis. BLADDER: Well-distended and normal. Bilateral ureteral jets are demonstrated. IMPRESSION: Unremarkable renal ultrasound. No evidence of obstruction.
--- NOTE | 2016-09-20 17:41 | Event Note ---
Event Note Event Note: Patient's sister Ms. Bronson was here in the evening to visit the patient. Patient's brother was also here. Family already discussed with social science professor Meena and are in the process of obtaining power of senior attorney. Detailed discussion done with the family about her medical condition and explained the concern for an encephalitis with her presentation. Risk of reversing INR with FFP developing blood clot, even though very low was explained and family is in full agreement for reversal of INR and proceeding with a lumbar puncture. Seperate Consent was obtained again for lumbar puncture and FFP transfusion. will Place the consent forms in the chart. Please contact Krupa Bronson (sister) or patients brother Mr.David Melo if need to obtain consent to convey medical patients condition.
--- NOTE | 2016-09-20 18:06 | CT SCAN REPORT ---
EXAMINATION: CT HEAD WITH CONTRAST CLINICAL INFORMATION: Altered mental status. Question HSV encephalitis. COMPARISON: CT 09/19/2016 TECHNIQUE: Contiguous axial imaging was performed from the skull base to vertex following the administration of approximately 100 mL of Optiray 320 intravenous contrast. DLP: 566.9 mGy-cm. FINDINGS: There is no evidence of acute intracranial hemorrhage or territorial infarction. No abnormal mass effect or midline shift is seen. Shaffer to white matter differentiation is well preserved. No extra-axial fluid collections are identified. There is no abnormal enhancement. The intracerebral vessels opacify normally with contrast. The ventricles are prominent in size. There is no abnormal attenuation within the brain parenchyma. The osseous structures and soft tissues are normal. The mastoid air cells and visualized portions of the paranasal sinuses are well aerated. IMPRESSION: No acute intracranial pathology.
[2016-09-20 23:50] VITALS: BP 100/60
--- NOTE | 2016-09-21 04:52 | Event Note ---
Event Note Event Note: Around 4:30 AM, nursing staff noted that patient was diaphoretic and lethargic. She had already received 1 unit of FFP and the second bag was almost complete. Her vitals were checked and were all within normal limits. Patient was seen and examined. She appeared lethargic and arousable to vigorous sternal rub only. She would open her eyes and go back to sleep within a couple of seconds. She was noted to be moving all four extremities spontaneously. Bilateral pupils were pinpoint and unreactive. Patient had not received any narcotics. Rapid response was called and stroke alert was placed. Stat CT Head W/O Contrast was ordered. Stat CBC, BMP, Mg, Phos, LFTs, INR, troponin and prolactin were ordered. Neurologist Dr. Avina was called and made aware. CT Head came back negative for any acute intracranial pathology. Patient was evaluated at bedside. Her mental status had improved significantly. She was awake, alert and oriented to person and place, but not time. There were no gross focal deficits on neurological exam. Dr. Avina was updated. Per his assessment, patient had AMS of unknown etiology, with seizures and TIA being on the differential. Neurology will come and assess patient in the AM.
--- NOTE | 2016-09-21 05:15 | CT SCAN REPORT ---
EXAMINATION: CT HEAD WITHOUT CONTRAST CLINICAL INFORMATION: New onset altered mental status, pinpoint pupils COMPARISON: Multiple priors, most recent 09/20/2016 TECHNIQUE: Contiguous axial imaging was performed from the skull base to vertex without intravenous administration of contrast. DLP: 600.71 mGy-cm. FINDINGS: There is no evidence of acute intracranial hemorrhage or territorial infarction. No abnormal mass effect or midline shift is seen. Shaffer to white matter differentiation is well preserved. No extra-axial fluid collections are identified. The ventricles are normal in size. There is mild periventricular white matter hypoattenuation consistent with chronic small vessel ischemic disease. Mild volume loss is noted. The osseous structures and soft tissues are normal. The mastoid air cells and visualized portions of the paranasal sinuses are well aerated. IMPRESSION: No acute intracranial pathology. Chronic small vessel ischemic disease and volume loss. This critical result was discussed with Dr. Jessica Funes on 09/21/2016 5:10 AM, and it was ascertained that the content and urgency of the report was understood at the time of direct communication.
--- NOTE | 2016-09-21 06:14 | NUR ---
AT 0400 ATTEMPTED TO DO NIH STROKE SCALE AND PT NOTED TO BE DIAPHORETIC AND ONLY RESPONSIVE TO STERNAL RUB. DR. YEE AT BEDSIDE, PT BLOOD SUGAR CHECKED 207, VITALS 130/68, HR AFIB 82, AXILLARY TEMP 99.1, RR 20 02 91% ON ROOM AIR PLACED ON 2LNC SAT INCREASED TO 95%. RAPID RESPONSE CALLED, AND STROKE ALERT CALLED BY RESIDENT TANYA HERRERA. PT BEGAN TO WAKE UP AND BACK TO BASELINE BEFORE BRINGING DOWN TO CT SCAN. CT SCAN NEGATIVE PER JAVIER AND NUEROLOGIST NOTIFIED, WILL REMAIN ON Q4 NIH SCALE.
[2016-09-21 06:30] LABS: ABSOLUTE BASOPHIL COUNT 0 /CUMM (0.0-0.2); ABSOLUTE EOSINOPHIL COUNT 0.1 /CUMM (0.0-0.7); ABSOLUTE GRANULOCYTE CT 4.5 /CUMM (1.4-6.5); ABSOLUTE LYMPH COUNT 1.5 /CUMM (1.2-3.4); ABSOLUTE MONOCYTE COUNT 0.8 /CUMM (0.10-0.60); BASOPHIL % 0.3 % (0.0-2.0); EOSINOPHIL % 1.6 % (0-5); GRANULOCYTE % 65.3 % (42.2-75.2); HEMATOCRIT 28.6 % (37-47); MEAN CORPUSCULAR HGB CONC 33.1 G/DL (33.0-37.0); MEAN CORPUSCULAR VOLUME 81.5 FL (81.0-99.0); MEAN PLATELET VOLUME 7.4 FL (7.4-10.4); PLATELET COUNT 259 /CUMM (130-400); RBC DISTRIBUTION WIDTH 15.9 % (11.5-14.5); RED BLOOD CELL CT 3.51 /CUMM (4.20-5.40); WHITE BLOOD CELL COUNT 6.9 /CUMM (4.8-10.8)
[2016-09-21 06:34] LABS: PT 17.9 SEC (9.4-12.5)
[2016-09-21 08:00] VITALS: BP 110/60
--- NOTE | 2016-09-21 09:28 | ELECTROENCEPHALOGRAM REPORT ---
Electroencephalogram Report ELECTROENCEPHALOGRAM RESULTS Date of service: 09/20/16 Ordering Provider: Dr Burrows RETREAD MOLD OPERATOR: Ayla Martinez TEST UTILIZES: 21 electrode system PERTINENT HX/PHYSICAL/NEURO FINDINGS/CLINICAL DIAG: seizure MEDICATIONS: gabapentin atorvastatin INTERPRETATION: EEG in wake state Background is 9-10 cps activity posteriorly Low voltage 20-22 cps activity frontally Photoc stimulation: no abnormalities Photid stim: no abnormalities No focal or epileptiform activities IMPRESSION: Normal EEG in wake state
--- NOTE | 2016-09-21 10:05 | PN- Housestaff ---
See Addendum Subjective Follow-up For: -AMS Complaints: pt unable to provide hx Tele-Events Since Last Visit: Anna ba, heart rate 94-100 Subjective: At 9am: Patient seen and examined at bedside, she was sleeping, difficult to arouse, lethargic, tried to answer questions but inappropriately She is not oriented to time and place, she reports that she wants to go back to sleep I asked her about family members visiting her yesterday and she was able to provide their names. Systematic review was difficult to obtained as she is not cooperative. An update at 11:15 am: I went back to see the patient, PT was at bedside. she was more awake, answering question appropriately, she was oriented to day, month but not the year, she follows command, she attributed her drowsiness and confusion today at am for bad sleep last night, she was able to move her lower extrimity with pain on the left side, sensation was intact. Review of Systems Constitutional: Reports: see HPI. EENTM: Reports: see HPI. Objective Last 24 Hrs of Vital Signs/I&O Vital Signs Date Time Temp Pulse Resp B/P Pulse O2 O2 Flow FiO2 Ox Delivery Rate 09/21 0800 98.7 92 20 110/60 97 Room Air 09/21 0000 95 Room Air 09/20 2350 98.9 96 20 100/60 96 Room Air 09/20 2329 98.9 09/20 1602 100.9 95 20 100/58 95 Room Air 09/20 1455 100.8 09/20 1425 101.3 09/20 1425 101.4 09/20 1145 100 122/70 Intake & Output 09/21 1600 09/21 0800 09/21 0000 Intake Total 725 650 Output Total 250 200 Balance 475 450 Intake, Blood 453 Product Intake, IV 272 200 Intake, Oral 450 Number 0 0 Bowel Movements Output, Urine 250 200 Physical Exam General Appearance: lethargic Skin: No Rashes, No Breakdown, No Significant Lesion HEENT: Atraumatic, pinpoint pupil bilateral, reactive to light Neck: Supple, No JVD Cardiovascular: Normal S1, Normal S2, irregular rate Lungs: Clear to Auscultation, Normal Air Movement Abdomen: Normal Bowel Sounds, Soft, No Tenderness Neurological: strength at 5/5 in upper extremities Lower extremities strength significantly diminished, patient unable to elevate her bilateral lower extremities Extremities: No Edema, Normal Pulses Vascular: Normal Pulses, Pulses Symmetrical Current Medications: Current Medications Sig/Gary Start time Last Medication Dose Route Stop Time Status Admin Acetaminophen 650 MG .STK-MED ONE 09/20 1422 DC PO 09/20 1423 Acetaminophen 650 MG Q6P PRN 09/19 1200 AC 09/20 PO 1425 Acyclovir 700 MG Q8H 09/20 1600 AC 09/21 Dextrose/Water 250 ML IV 0043 Alprazolam 0.5 MG BID PRN 09/19 1400 AC PO 09/26 1359 Atorvastatin Calcium 20 MG AT BEDTIME 09/19 2200 AC 09/20 PO 2028 Ceftriaxone Sodium 1,000 MG Q24H 09/20 1130 AC 09/20 IV 1146 Cholecalciferol 1,000 IU DAILY 09/20 1000 AC 09/20 PO 1145 Diltiazem HCl 360 MG DAILY 09/19 1350 AC 09/20 PO 1145 Ezetimibe 10 MG DAILY 09/20 1000 AC 09/20 PO 1145 Furosemide 20 MG DAILY 09/20 1000 AC 09/20 PO 1145 Gabapentin 600 MG Q8 09/19 1400 AC 09/21 PO 0834 Ibuprofen 600 MG Q6P PRN 09/19 1200 DC PO Insulin Aspart 0 TIDAC 09/19 1700 AC 09/21 SC 0834 Levothyroxine Sodium 0.0375 MG DAILY AC 09/21 0830 AC PO Levothyroxine Sodium 0.0375 MG DAILY AC 09/20 0700 DC 09/20 PO 0632 Lisinopril 2.5 MG DAILY 09/19 1353 AC 09/20 PO 1145 Magnesium Chloride 64 MG TID 09/19 1600 AC 09/20 PO 2330 Magnesium Oxide 400 MG ONE ONE 09/20 2345 DC 09/20 PO 09/20 2346 2330 Magnesium Sulfate 1 GM ONCE ONE 09/20 1515 DC 09/20 Dextrose/Water 100 ML IV 09/20 1914 2049 Warfarin Sodium 7.5 MG COUMADIN 1700 ONE 09/20 1700 CAN PO 09/20 1701 Last 24 Hrs of Lab/Robbie Results Last 24 Hrs of Labs/Mics: Laboratory Tests 09/21/16 0800: Herpes Simplex Source Cancelled, HSV I DNA PCR Cancelled, HSV II DNA PCR Cancelled 09/21/16 0615: Anion Gap 11, Estimated GFR > 60, BUN/Creatinine Ratio 17.8, Phosphorus 3.5, Magnesium 1.7, Total Bilirubin 1.0, Direct Bilirubin 0.3, AST 15, ALT 20, Alkaline Phosphatase 37, Troponin I < 0.01, Total Protein 6.4, Albumin 3.2 L, Prolactin 14.1, PT 17.9 H, INR 1.71 H, CBC w Diff NO MAN DIFF REQ, RBC 3.51 L , MCV 81.5, MCH 27.0, RDW 15.9 H, MPV 7.4, Gran % 65.3, Lymphocytes % 21.3, Monocytes % 11.5 H, Eosinophils % 1.6, Basophils % 0.3, Absolute Granulocytes 4.5, Absolute Lymphocytes 1.5, Absolute Monocytes 0.8 H, Absolute Eosinophils 0.1, Absolute Basophils 0, PUBS MCHC 33.1 09/21/16 0600: Total Bilirubin Cancelled, Direct Bilirubin Cancelled, AST Cancelled, ALT Cancelled, Alkaline Phosphatase Cancelled, Total Protein Cancelled, Albumin Cancelled, PT Cancelled, INR Cancelled, CBC w Diff Cancelled, WBC Cancelled, RBC Cancelled, Hgb Cancelled, Hct Cancelled, MCV Cancelled, MCH Cancelled, RDW Cancelled, Plt Count Cancelled, MPV Cancelled, PUBS MCHC Cancelled 09/21/16 0550: pH 7.50 H, pCO2 30 L, pO2 105 H, HCO3 23, ABG O2 Sat (Measured) 98.0, P-50 ( Temp Corrected) N, Carboxyhemoglobin 1.0 L, O2 Concentration % 2L, O2 Delivery Method N/C, Phlebotomy Draw Site LEFT BRACHIAL Microbiology 09/21 0800 CENT N S: CSF Culture - ORD 09/21 0800 CENT N S: Gram Stain - ORD 09/20 1605 BODY FLUID: Body Fluid Culture - CAN Cancelled: CHANGED TO [facility] 09/20 1605 BODY FLUID: Gram Stain - CAN Cancelled: CHANGED TO [facility] Assessment/Plan Assessment: 1. Altered mental status: * She spikes fever yesterday evening, no fever overnight, today no white count currently she is treated empirically with IV antibiotics for UTI and with Acyclovir for encephalitis * Blood and urine culture negative so far. * Patient was seen by Fernandez Brar MD yesterday, who recommended lumbar puncture which couldn't be done secondary to elevated INR, yesterday attempt was done to reverse INR with 2 unit FFP, unfortunately after receiving FFP she became more lethargic and difficult to arouse, night team called stroke alert, CT- scan came back negative for acute stroke, but shows Chronic small vessel ischemic disease and volume loss. Neurology consult was obtained with Dr. Avina will come and assess the patient this a.m. * EEG was normal * Renal ultrasound was unremarkable with no evidence of obstruction * Lyme titer pending 2. atrial fibrillation on Coumadin: INR remains at 1.71 after 2 units FFP yesterday. 3. Diabetes mellitus history A1c pending Will continue on NovoLog sliding scale next 4. History of hypertension will continue on her home medication next 5. History of chronic hypomagnesemia without clear etiology: Today magnesium 1.7, will check magnesium level tomorrow at a.m. DVT prophylaxis with Coumadin on hold Problem List: 1. Atrial fibrillation 2. Altered mental status Pain Ratin Pain Location: - Pain Goal: Remain pain free Pain Plan: - Tomorrow's Labs & Rationales: CBC, BEP, INR DVT/Prophylaxis: pharmacological, she is on Coumadin which is on hold for possible LP, will resume once LP done Consulting Request: Consulting Specialty: Neurology Consulting Physician:
--- NOTE | 2016-09-21 12:33 | Event Note ---
See Addendum Event Note Event Note: The need for LP was discussed with Dr. Buckley. He Recommends to give the patient 2 units FFB be to reverse the INR and contact IR for LP. I already spoke to IR nurse Kamla, she asked me to fill interventional radiology constant which I did, she will fax the form to the on-call radiologist, waiting for procedure approval from radiologist.
--- NOTE | 2016-09-21 14:03 | PN- Neurology ---
Subjective Subjective: She had another confsion hepisode yesterday but is doing better now and is back to normal Objective Vital Signs and I&Os Vital Signs Date Time Temp Pulse Resp B/P Pulse O2 O2 Flow FiO2 Ox Delivery Rate 09/21 1327 99.7 09/21 1153 105 130/72 09/21 0800 98.7 92 20 110/60 97 Room Air 09/21 0000 95 Room Air 09/20 2350 98.9 96 20 100/60 96 Room Air 09/20 2329 98.9 09/20 1602 100.9 95 20 100/58 95 Room Air 09/20 1455 100.8 09/20 1425 101.3 09/20 1425 101.4 Intake & Output 09/21 1600 09/21 0800 09/21 0000 09/20 1600 09/20 0800 09/20 0000 Intake Total 725 317 437 2832 Output Total 250 200 600 Balance 475 450 620 600 Intake, Blood 453 Product Intake, IV 272 200 600 600 Intake, Oral 450 20 600 Number 0 0 0 Bowel Movements Output, Urine 250 200 600 Patient 104.326 kg Weight Physical Exam: A&O x2, NAD, able to follow simple commands No drift, 5/5 in maddy UE and 3/5 in maddy LE with pain CN2-12 intact Neg bonnie No clonus downgoing toes sensory intact t/o Current Medications: Current Medications Sig/Gary Start time Last Medication Dose Route Stop Time Status Admin Acetaminophen 650 MG .STK-MED ONE 09/20 1422 DC PO 09/20 1423 Acetaminophen 650 MG Q6P PRN 09/19 1200 AC 09/21 PO 1327 Acyclovir 700 MG Q8H 09/20 1600 AC 09/21 Dextrose/Water 250 ML IV 1153 Alprazolam 0.5 MG BID PRN 09/19 1400 AC PO 09/26 1359 Atorvastatin Calcium 20 MG AT BEDTIME 09/19 2200 AC 09/20 PO 2028 Ceftriaxone Sodium 1,000 MG Q24H 09/20 1130 AC 09/21 IV 1153 Cholecalciferol 1,000 IU DAILY 09/20 1000 AC 09/21 PO 1153 Diltiazem HCl 360 MG DAILY 09/19 1350 AC 09/21 PO 1149 Ezetimibe 10 MG DAILY 09/20 1000 AC 09/21 PO 1153 Furosemide 20 MG DAILY 09/20 1000 AC 09/21 PO 1150 Gabapentin 600 MG Q8 09/19 1400 AC 09/21 PO 1323 Ibuprofen 600 MG Q6P PRN 09/19 1200 DC PO Insulin Aspart 0 TIDAC 09/19 1700 AC 09/21 SC 1323 Levothyroxine Sodium 0.0375 MG DAILY AC 09/21 0830 AC 09/21 PO 1149 Levothyroxine Sodium 0.0375 MG DAILY AC 09/20 0700 DC 09/20 PO 0632 Lisinopril 2.5 MG DAILY 09/19 1353 AC 09/21 PO 1153 Magnesium Chloride 64 MG TID 09/19 1600 AC 09/21 PO 1149 Magnesium Oxide 400 MG ONE ONE 09/20 2345 DC 09/20 PO 09/20 2346 2330 Magnesium Sulfate 1 GM ONCE ONE 09/20 1515 DC 09/20 Dextrose/Water 100 ML IV 09/20 Warfarin Sodium 7.5 MG COUMADIN 1700 ONE 09/20 1700 CAN PO 09/20 1701 Results Last 24 Hours of Lab Results: Laboratory Tests 09/21 09/21 09/21 0800 0615 0600 Chemistry Sodium (137 - 145 mmol/L) 140 Potassium (3.5 - 5.1 mmol/L) 3.8 Chloride (98 - 107 mmol/L) 103 Carbon Dioxide (22 - 30 mmol/L) 26 Anion Gap (5 - 16) 11 BUN (7 - 17 mg/dL) 16 Creatinine (0.5 - 1.0 mg/dL) 0.9 Estimated GFR (>60 ml/min) > 60 BUN/Creatinine Ratio (7 - 25 %) 17.8 Phosphorus (2.5 - 4.5 mg/dL) 3.5 Magnesium (1.6 - 2.3 mg/dL) 1.7 Total Bilirubin (0.2 - 1.3 mg/dL) 1.0 Cancelled Direct Bilirubin (< 0.4 mg/dL) 0.3 Cancelled AST (14 - 36 U/L) 15 Cancelled ALT (9 - 52 U/L) 20 Cancelled Alkaline Phosphatase (<127 U/L) 37 Cancelled Troponin I (< 0.11 ng/ml) < 0.01 Total Protein (6.3 - 8.2 g/dL) 6.4 Cancelled Albumin (3.5 - 5.0 g/dL) 3.2 L Cancelled Prolactin (3.0 - 18.6 ng/mL) 14.1 Coagulation PT (9.4 - 12.5 SEC) 17.9 H Cancelled INR (0.90 - 1.19) 1.71 H Cancelled Hematology CBC w Diff NO MAN DIFF REQ Cancelled WBC (4.8 - 10.8 /CUMM) 6.9 Cancelled RBC (4.20 - 5.40 /CUMM) 3.51 L Cancelled Hgb (12.0 - 16.0 G/DL) 9.5 L Cancelled Hct (37 - 47 %) 28.6 L Cancelled MCV (81.0 - 99.0 FL) 81.5 Cancelled MCH (27.0 - 31.0 PG) 27.0 Cancelled RDW (11.5 - 14.5 %) 15.9 H Cancelled Plt Count (130 - 400 /CUMM) 259 Cancelled MPV (7.4 - 10.4 FL) 7.4 Cancelled Gran % (42.2 - 75.2 %) 65.3 Lymphocytes % (20.5 - 51.1 %) 21.3 Monocytes % (1.7 - 9.3 %) 11.5 H Eosinophils % (0 - 5 %) 1.6 Basophils % (0.0 - 2.0 %) 0.3 Absolute Granulocytes (1.4 - 6.5 /CUMM) 4.5 Absolute Lymphocytes (1.2 - 3.4 /CUMM) 1.5 Absolute Monocytes (0.10 - 0.60 /CUMM) 0.8 H Absolute Eosinophils (0.0 - 0.7 /CUMM) 0.1 Absolute Basophils (0.0 - 0.2 /CUMM) 0 PUBS MCHC (33.0 - 37.0 G/DL) 33.1 Cancelled Serology Herpes Simplex Source Cancelled HSV I DNA PCR Cancelled HSV II DNA PCR Cancelled 09/21 0550 Blood Gas pH (7.35 - 7.45 PH) 7.50 H pCO2 (35 - 45 TORR) 30 L pO2 (80 - 100 TORR) 105 H HCO3 (21 - 28 MEQ/L) 23 ABG O2 Sat (Measured) (>96.0 %) 98.0 P-50 (Temp Corrected) N Carboxyhemoglobin (1.5 - 5.0 %) 1.0 L O2 Concentration % 2L O2 Delivery Method N/C Miscellaneous Phlebotomy Draw Site LEFT BRACHIAL Recent Imaging Studies: EEG 09/20/16: Normal EEG in wake state CT head 09/21/16: No acute intracranial pathology. Chronic small vessel ischemic disease and volume loss. Assessment/Plan Assessment: Patient presents with acute confusion, she had another episode last night with normal CT head and was back to baseline. EEG was normal. She was noted to have UTI. Obtain MRI of brain w/ and w/o DANO decrease GBP to 300mg tid Decrease alprazolam to 0.25mg bid prn anxiety Find source of infection, patient had spiked fever Check LFT, ammonia Call with questions Plan: see above
--- NOTE | 2016-09-21 14:09 | PN- Cardiology ---
Subjective Subjective: The patient is more alert today and conversant. Nevertheless, she remains slightly confused. No other complaints. Objective Vital Signs and I&Os Vital Signs Date Time Temp Pulse Resp B/P Pulse O2 O2 Flow FiO2 Ox Delivery Rate 09/21 1327 99.7 09/21 1153 105 130/72 09/21 0800 98.7 92 20 110/60 97 Room Air 09/21 0000 95 Room Air 09/20 2350 98.9 96 20 100/60 96 Room Air 09/20 2329 98.9 09/20 1602 100.9 95 20 100/58 95 Room Air 09/20 1455 100.8 09/20 1425 101.3 09/20 1425 101.4 Intake & Output 09/21 1600 09/21 0800 09/21 0000 09/20 1600 09/20 0800 09/20 0000 Intake Total 725 312 563 5993 Output Total 250 200 600 Balance 475 450 620 600 Intake, Blood 453 Product Intake, IV 272 200 600 600 Intake, Oral 450 20 600 Number 0 0 0 Bowel Movements Output, Urine 250 200 600 Patient 230 lb 230 lb Weight Current Medications: Current Medications Sig/Gary Start time Last Medication Dose Route Stop Time Status Admin Acetaminophen 650 MG .STK-MED ONE 09/20 1422 DC PO 09/20 1423 Acetaminophen 650 MG Q6P PRN 09/19 1200 AC 09/21 PO 1327 Acyclovir 700 MG Q8H 09/20 1600 AC 09/21 Dextrose/Water 250 ML IV 1153 Alprazolam 0.5 MG BID PRN 09/19 1400 AC PO 09/26 1359 Atorvastatin Calcium 20 MG AT BEDTIME 09/19 2200 AC 09/20 PO 2028 Ceftriaxone Sodium 1,000 MG Q24H 09/20 1130 AC 09/21 IV 1153 Cholecalciferol 1,000 IU DAILY 09/20 1000 AC 09/21 PO 1153 Diltiazem HCl 360 MG DAILY 09/19 1350 AC 09/21 PO 1149 Ezetimibe 10 MG DAILY 09/20 1000 AC 09/21 PO 1153 Furosemide 20 MG DAILY 09/20 1000 AC 09/21 PO 1150 Gabapentin 600 MG Q8 09/19 1400 AC 09/21 PO 1323 Ibuprofen 600 MG Q6P PRN 09/19 1200 DC PO Insulin Aspart 0 TIDAC 09/19 1700 AC 09/21 SC 1323 Levothyroxine Sodium 0.0375 MG DAILY AC 09/21 0830 AC 09/21 PO 1149 Levothyroxine Sodium 0.0375 MG DAILY AC 09/20 0700 DC 09/20 PO 0632 Lisinopril 2.5 MG DAILY 09/19 1353 AC 09/21 PO 1153 Magnesium Chloride 64 MG TID 09/19 1600 AC 09/21 PO 1149 Magnesium Oxide 400 MG ONE ONE 09/20 2345 DC 09/20 PO 09/20 2346 2330 Magnesium Sulfate 1 GM ONCE ONE 09/20 1515 DC 09/20 Dextrose/Water 100 ML IV 09/20 1914 2049 Warfarin Sodium 7.5 MG COUMADIN 1700 ONE 09/20 1700 CAN PO 09/20 1701 Results Last 48 Hrs of Labs/Mics: Laboratory Tests 09/21/16 0800: Herpes Simplex Source Cancelled, HSV I DNA PCR Cancelled, HSV II DNA PCR Cancelled 09/21/16 0615: Anion Gap 11, Estimated GFR > 60, BUN/Creatinine Ratio 17.8, Phosphorus 3.5, Magnesium 1.7, Total Bilirubin 1.0, Direct Bilirubin 0.3, AST 15, ALT 20, Alkaline Phosphatase 37, Troponin I < 0.01, Total Protein 6.4, Albumin 3.2 L, Prolactin 14.1, PT 17.9 H, INR 1.71 H, CBC w Diff NO MAN DIFF REQ, RBC 3.51 L , MCV 81.5, MCH 27.0, RDW 15.9 H, MPV 7.4, Gran % 65.3, Lymphocytes % 21.3, Monocytes % 11.5 H, Eosinophils % 1.6, Basophils % 0.3, Absolute Granulocytes 4.5, Absolute Lymphocytes 1.5, Absolute Monocytes 0.8 H, Absolute Eosinophils 0.1, Absolute Basophils 0, PUBS MCHC 33.1 09/21/16 0600: Total Bilirubin Cancelled, Direct Bilirubin Cancelled, AST Cancelled, ALT Cancelled, Alkaline Phosphatase Cancelled, Total Protein Cancelled, Albumin Cancelled, PT Cancelled, INR Cancelled, CBC w Diff Cancelled, WBC Cancelled, RBC Cancelled, Hgb Cancelled, Hct Cancelled, MCV Cancelled, MCH Cancelled, RDW Cancelled, Plt Count Cancelled, MPV Cancelled, PUBS MCHC Cancelled 09/21/16 0550: pH 7.50 H, pCO2 30 L, pO2 105 H, HCO3 23, ABG O2 Sat (Measured) 98.0, P-50 ( Temp Corrected) N, Carboxyhemoglobin 1.0 L, O2 Concentration % 2L, O2 Delivery Method N/C, Phlebotomy Draw Site LEFT BRACHIAL 09/20/16 0705: Anion Gap 10, Estimated GFR > 60, BUN/Creatinine Ratio 22.9, Magnesium 1.5 L, PT 17.9 H, INR 1.71 H, CBC w Diff NO MAN DIFF REQ, RBC 3.60 L, MCV 81.3, MCH 27.3, RDW 15.7 H, MPV 8.1, Gran % 71.2, Lymphocytes % 17.6 L, Monocytes % 10.3 H, Eosinophils % 0.6, Basophils % 0.3, Absolute Granulocytes 5.3, Absolute Lymphocytes 1.3, Absolute Monocytes 0.8 H, Absolute Eosinophils 0, Absolute Basophils 0, PUBS MCHC 33.6 09/20/16 0600: Hemoglobin A1c Pending, Lyme Disease Antibody Pending 09/19/16 2210: Magnesium 1.3 L, Ammonia < 9 L, Troponin I < 0.01, Vitamin B12 240, 25-OH Vitamin D Total 13.7 L, TSH 1.180 09/19/16 1845: Urine Color YEL, Urine Clarity CLEAR, Urine pH 7.5, Ur Specific [place] 1.015, Urine Protein NEG, Urine Ketones NEG, Urine Nitrite POS H, Urine Bilirubin NEG, Urine Urobilinogen 1.0, Ur Leukocyte Esterase TRACE H, Ur Microscopic SEDIMENT EXAMINED, Urine RBC RARE, Urine WBC 10-15 H, Ur Epithelial Cells RARE, Urine Hemoglobin NEG, Urine Glucose NEG 09/19/16 1735: Magnesium 1.4 L Microbiology 09/19 1844 URINE ROUT: Urine Culture - COMP Assessment/Plan Assessment/Plan Assessment: 1. Acute confusion/delerium with slurred speech(rule out TIA/stroke) in the setting of subtherapeutic INR 2. History of AF / CM / AICD 3. Hypoglycemia history of diabetes mellitus- 4. History of hypertension / hyperlipidemia 5. History of hypothyroidism 6. History of chronic hypomagnesemia without clear etiology complicated with seizures and polymorphic VT. 7. History of asthma 8. Anemia Recommendations: -In the absence of any obvious arrhythmias, the patient can likely come off telemetry if necessary. - Check B12 , MG, TSH, etc - Neurology input noted -Magnesium normal today at 1.7 - Further plans after the above - Formal device interrogation to be arranged. -I do not believe that the patient's AICD is MRI compatible. I will discuss this with her presentation manager Friday. Continue telemetry? Yes
[2016-09-21 16:34] VITALS: BP 118/60
[2016-09-21 17:38] LABS: PT 16.6 SEC (9.4-12.5); PTT 27 SEC (25-37)
--- NOTE | 2016-09-21 20:18 | Proc Note Internal Medicine ---
Medicine Procedure Procedure Date: 09/21/16 Medical Procedure(s): lumbar puncture Pre-Operative Diagnosis: Altered mental status needs to r/o encephalitis Estimated Blood Loss: scant Anesthesia: Local 1% lidocaine Procedure Findings: Procedure done under the observation of . Informed consent was obtained from the patient's sister yesterday which was in the chart. The procedure was explained for the patient her self and she was in agreement. The area was prepped and draped in the usual sterile fashion. Local 1 % Lidocaine w/o epi was used. Using landmarks, a 22 guage spinal needle was inserted in the L4-L5 innerspace. The attempt was failed to obtain CSF. At this point patient is going to IR for imaging danielle LARSON.
[2016-09-22 00:22] VITALS: BP 102/60
[2016-09-22 07:56] VITALS: BP 110/58
[2016-09-22 08:38] LABS: PT 15.1 SEC (9.4-12.5)
--- NOTE | 2016-09-22 08:39 | PN- Infect Dx ---
Subjective Subjective: MAXIMUM TEMPERATURE 100.7. She feels well today and is able to provide a good history. She does report a mild headache but has no other complaints. She denies any recent urinary symptoms. Objective Last 24 Hrs of Vital Signs/I&O Vital Signs Date Time Temp Pulse Resp B/P Pulse O2 O2 Flow FiO2 Ox Delivery Rate 09/22 821 98 110/58 09/22 0756 98.8 98 20 110/58 96 Room Air 09/22 0022 100.7 97 18 102/60 93 09/21 1659 99.1 09/21 1634 99.1 96 20 118/60 96 Room Air 09/21 1327 99.7 09/21 1153 105 130/72 Intake & Output 09/22 1600 09/22 0800 09/22 0000 Intake Total 120 610 Output Total Balance 120 610 Intake, IV 250 Intake, Oral 120 360 Physical Exam Other Physical Findings: She is awake and alert, oriented 3, and in no acute distress Neck is supple with no adenopathy Lungs are clear Heart regular rhythm with no murmur Abdomen is soft, nontender with positive bowel sounds Back no CVA tenderness Extremities no cyanosis, clubbing or edema Neuro without any apparent focality Results Last 24 Hours of Lab Results: Laboratory Tests 09/22 09/21 09/21 09/21 0640 2024 2024 1650 Chemistry Sodium Pending Potassium Pending Chloride Pending Carbon Dioxide Pending Anion Gap Pending BUN Pending Creatinine Pending BUN/Creatinine Ratio Pending Total Bilirubin Pending Direct Bilirubin Pending AST Pending ALT Pending Alkaline Phosphatase Pending Ammonia (9 - 30 umol/L) < 9 L Total Protein Pending Albumin Pending Coagulation PT (9.4 - 12.5 SEC) Pending 16.6 H INR (0.90 - 1.19) Pending 1.59 H APTT (25 - 37 SEC) 27 Hematology CBC w Diff Pending WBC Pending RBC Pending Hgb Pending Hct Pending MCV Pending MCH Pending RDW Pending Plt Count Pending MPV Pending PUBS MCHC Pending Other Body Source Fluid Albumin (g/dL) < 1.0 Fluid Amylase (U/L) < 30 CSF WBC (0 - 5 /CUMM) 0 CSF RBC (-0 /CUMM) 83 H CSF Comment CSF Glucose (40 - 70 mg/dL) 123 H CSF Total Protein (12 - 60 mg/dL) 41 Last 24 Hours of Robbie Results: Blood cultures 2 September 19 negative Urine culture September 19 negative CSF culture September 21 negative Recent Imaging Studies: CT of the head with IV contrast September [address] of the head without IV contrast September 21 negative Renal ultrasound September 20 negative EEG September 21 normal Assessment/Plan Impression: Markedly improved mental status with no evidence for any neurologic deficits and with lumbar puncture, repeat CT scans of the head and EEG all normal. With her negative CSF encephalitis seems unlikely; therefore the Acyclovir can be discontinued. She remains on Ceftriaxone for a positive urine culture, though she had no urinary symptoms and I am not convinced that this can explain her altered mental status; nevertheless with the recent fever, which is otherwise unexplained, she may require a course of treatment for sepsis of urologic origin. Suggestion: 1. Would restart Coumadin if okay with Medicine/Neurology 2. Discontinue Acyclovir 3. Discontinue Ceftriaxone 4. Begin Amoxicillin 500 mg po every 8 hours
[2016-09-22 10:25] LABS: ABSOLUTE BASOPHIL COUNT 0 /CUMM (0.0-0.2); ABSOLUTE EOSINOPHIL COUNT 0.2 /CUMM (0.0-0.7); ABSOLUTE GRANULOCYTE CT 4.3 /CUMM (1.4-6.5); ABSOLUTE LYMPH COUNT 1.5 /CUMM (1.2-3.4); ABSOLUTE MONOCYTE COUNT 0.7 /CUMM (0.10-0.60); BASOPHIL % 0.5 % (0.0-2.0); EOSINOPHIL % 2.5 % (0-5); GRANULOCYTE % 65.2 % (42.2-75.2); HEMATOCRIT 26.5 % (37-47); MEAN CORPUSCULAR HGB 27.3 PG (27.0-31.0); MEAN CORPUSCULAR HGB CONC 33.8 G/DL (33.0-37.0); MEAN CORPUSCULAR VOLUME 80.8 FL (81.0-99.0); PLATELET COUNT 264 /CUMM (130-400); RED BLOOD CELL CT 3.29 /CUMM (4.20-5.40); WHITE BLOOD CELL COUNT 6.7 /CUMM (4.8-10.8)
--- NOTE | 2016-09-22 15:43 | INTERVENTIONAL RADIOLOGY RPT ---
EXAMINATION: Lumbar puncture with fluoroscopic guidance CLINICAL INFORMATION: Altered mental status with fever. LP attempted on the floor chest prior to arrival in IR. FFP was given for an elevated INR. COMPARISON: None. TECHNIQUE AND FINDINGS: Informed consent was obtained from the patient prior to the procedure. During this process, the procedure and potential alternatives were explained, along with the intended outcome and benefits. The risks of the procedure, as well as the risks of not doing the procedure, were discussed. The patient was given the opportunity to ask questions regarding the procedure and appeared competent to make medical decisions. A signed consent form which documents this discussion was placed in the medical record. A final timeout procedure was performed. The skin was marked, prepped, draped, and anesthetized. Utilizing C-arm fluoroscopy and sterile technique, a 22-gauge spinal needle was advanced into the spinal canal at the L3-L4 level, utilizing a paramedian interlaminar approach. CSF flowed readily. Opening pressure was not requested by the ordering physician. The CSF was clear and colorless. A total of 10 mL was collected sequentially in the 4 test tubes in the lumbar puncture set and sent for the requested laboratory tests. The stylet was replaced and the needle was removed and a Band-Aid applied. Orders were written into the chart for bed rest x1 hour. Findings were communicated to the clinical service. FLUOROSCOPY TIME: 19 seconds. MEDICATION: 5 mL 1% lidocaine subcutaneous. IMPRESSION: Successful fluoroscopic-guided lumbar puncture. Trace blood tinged CSF on the first tube, which cleared on additional tubes.
[2016-09-22 15:57] VITALS: BP 108/60
--- NOTE | 2016-09-22 16:09 | PN- Cardiology ---
Subjective Subjective: Likely stable Objective Vital Signs and I&Os Vital Signs Date Time Temp Pulse Resp B/P Pulse O2 O2 Flow FiO2 Ox Delivery Rate 09/22 1557 98.7 76 20 108/60 92 Room Air 09/22 0822 98 110/58 09/22 0756 98.8 98 20 110/58 96 Room Air 09/22 0022 100.7 97 18 102/60 93 09/21 1659 99.1 09/21 1634 99.1 96 20 118/60 96 Room Air Intake & Output 09/22 1600 09/22 0800 09/22 0000 09/21 1600 09/21 0809/21 0000 Intake Total 960 120 610 960 725 650 Output Total 250 200 Balance 960 120 610 960 475 450 Intake, Blood 453 Product Intake, IV 250 272 200 Intake, Oral 960 120 360 960 450 Number 0 0 Bowel Movements Output, Urine 250 200 Patient 230 lb Weight Physical Exam: General Appearance: Alert, Cooperative, No Acute Distress Skin: No Rashes Cardiovascular: irregular, 2/6 systolic murmur present in the right parasternal area Lungs: decreased bilateral breath sounds, basilar crackles Abdomen: Normal Bowel Sounds, Soft Neurological: Strength at 5/5 X4 Ext, speech confused Extremities: No Edema Current Medications: Current Medications Sig/Gary Start time Last Medication Dose Route Stop Time Status Admin Acetaminophen 650 MG Q6P PRN 09/19 1200 AC 09/21 PO 1327 Acyclovir 700 MG Q8H 09/20 1600 AC 09/22 Dextrose/Water 250 ML IV 0819 Alprazolam 0.25 MG BID PRN 09/21 1446 AC PO 09/26 1359 Atorvastatin Calcium 20 MG AT BEDTIME 09/19 2200 AC 09/21 PO 2134 Ceftriaxone Sodium 1,000 MG Q24H 09/20 1130 AC 09/22 IV 1236 Cholecalciferol 1,000 IU DAILY 09/20 1000 AC 09/22 PO 0821 Diltiazem HCl 360 MG DAILY 09/19 1350 AC 09/22 PO 0822 Ezetimibe 10 MG DAILY 09/20 1000 AC 09/22 PO 0822 Furosemide 20 MG DAILY 09/20 1000 AC 09/22 PO 0821 Gabapentin 300 MG Q8 09/21 2200 AC 09/22 PO 1240 Insulin Aspart 0 TIDAC 09/19 1700 AC 09/22 SC 1236 Levothyroxine Sodium 0.0375 MG DAILY AC 09/21 0830 AC 09/22 PO 0604 Lidocaine 20 ML .STK-MED ONE 09/21 1919 DC IA 09/21 1920 Lidocaine 5 ML .STK-MED ONE 09/21 1917 DC IV 09/21 1918 Lidocaine/Epinephrine 20 ML .STK-MED ONE 09/21 1917 DC ID 09/21 1918 Lisinopril 2.5 MG DAILY 09/19 1353 AC 09/22 PO 0822 Magnesium Chloride 64 MG TID 09/19 1600 AC 09/22 PO 0821 Potassium Chloride 40 MEQ ONCE ONE 09/22 1445 DC PO 09/22 1446 Results Last 48 Hrs of Labs/Mics: Laboratory Tests 09/22/16 0640: Anion Gap 10, Estimated GFR > 60, BUN/Creatinine Ratio 20.0, Total Bilirubin 0.7 , Direct Bilirubin 0.3, AST 14, ALT 22, Alkaline Phosphatase 37, Total Protein 6.2 L, Albumin 3.2 L, PT 15.1 H, INR 1.44 H, CBC w Diff NO MAN DIFF REQ, RBC 3.29 L, MCV 80.8 L, MCH 27.3, RDW 15.0 H, MPV 8.0, Gran % 65.2, Lymphocytes % 21.9, Monocytes % 9.9 H, Eosinophils % 2.5, Basophils % 0.5, Absolute Granulocytes 4.3, Absolute Lymphocytes 1.5, Absolute Monocytes 0.7 H, Absolute Eosinophils 0.2, Absolute Basophils 0, PUBS MCHC 33.8 09/21/162024: CSF WBC 0, CSF RBC 83 H, CSF Comment 09/21/162024: Fluid Albumin < 1.0, Fluid Amylase < 30, CSF Glucose 123 H, CSF Total Protein 41 09/21/16 1650: Ammonia < 9 L, PT 16.6 H, INR 1.59 H, APTT 27 09/21/16 0800: Herpes Simplex Source Cancelled, HSV I DNA PCR Cancelled, HSV II DNA PCR Cancelled 09/21/16 0615: Anion Gap 11, Estimated GFR > 60, BUN/Creatinine Ratio 17.8, Phosphorus 3.5, Magnesium 1.7, Total Bilirubin 1.0, Direct Bilirubin 0.3, AST 15, ALT 20, Alkaline Phosphatase 37, Troponin I < 0.01, Total Protein 6.4, Albumin 3.2 L, Prolactin 14.1, PT 17.9 H, INR 1.71 H, CBC w Diff NO MAN DIFF REQ, RBC 3.51 L , MCV 81.5, MCH 27.0, RDW 15.9 H, MPV 7.4, Gran % 65.3, Lymphocytes % 21.3, Monocytes % 11.5 H, Eosinophils % 1.6, Basophils % 0.3, Absolute Granulocytes 4.5, Absolute Lymphocytes 1.5, Absolute Monocytes 0.8 H, Absolute Eosinophils 0.1, Absolute Basophils 0, PUBS MCHC 33.1 09/21/16 0600: Total Bilirubin Cancelled, Direct Bilirubin Cancelled, AST Cancelled, ALT Cancelled, Alkaline Phosphatase Cancelled, Total Protein Cancelled, Albumin Cancelled, PT Cancelled, INR Cancelled, CBC w Diff Cancelled, WBC Cancelled, RBC Cancelled, Hgb Cancelled, Hct Cancelled, MCV Cancelled, MCH Cancelled, RDW Cancelled, Plt Count Cancelled, MPV Cancelled, PUBS MCHC Cancelled 09/21/16 0550: pH 7.50 H, pCO2 30 L, pO2 105 H, HCO3 23, ABG O2 Sat (Measured) 98.0, P-50 ( Temp Corrected) N, Carboxyhemoglobin 1.0 L, O2 Concentration % 2L, O2 Delivery Method N/C, Phlebotomy Draw Site LEFT BRACHIAL Assessment/Plan Assessment/Plan Assessment: 1. Acute confusion/delerium with slurred speech(rule out TIA/stroke) in the setting of subtherapeutic INR 2. History of AF / CM / AICD 3. Hypoglycemia history of diabetes mellitus- 4. History of hypertension / hyperlipidemia 5. History of hypothyroidism 6. History of chronic hypomagnesemia without clear etiology complicated with seizures and polymorphic VT. 7. History of asthma 8. Anemia Recommendations: -In the absence of any obvious arrhythmias, the patient can come off telemetry if necessary. - Check B12 , MG, TSH, etc - Neurology input noted -Infectious disease input noted -Magnesium normal today at 1.7 - Further plans after the above - Formal device interrogation to be arranged. -I do not believe that the patient's AICD is MRI compatible. I will discuss this with her head start teacher Friday. Continue telemetry? No
--- NOTE | 2016-09-22 19:55 | PN- Att Addend ---
Attending Addendum Attending Brief Note 65F PMH cardiomyopathy s/p AICD, paroyxsmal atrial fibrillation on Coumadin, HTN , HLD, T2DM, hypothyroidism, history of gastric bypass admitted for confusion, delirium, slurred speech, febrile to 101.3, treated empirically with Acyclovir before INR could be reversed so LP could be performed, and Ceftriaxone for UTI. Patient remains confused, though she is not agitated. Tmax 100.7, hemodynamically stable, labs unremarkable. LP performed with the help of Dr. Tamayo 09/21 revealed no evidence of meningitis/encephalitis. AFVSS NAD NCAT Supple RRR CTAB Soft, NTND No c/c/e Pulses intact A&Ox2, strenght intact, sensation intact, cranial nerves grossly intact Plan - Continue on telemetry, may discontinue telemetry tomorrow - Check B12, TSH, Vitamin D level, ammonia level - Follow cardiology, neurology, ID recommendations - Continue Amoxicillin - Consider adding anti-NMDA antibodies to CSF - Follow blood and CSF cultures - Continue home medications - Avoid delirium triggers - DVT PPx
[2016-09-22 23:01] VITALS: BP 110/60
[2016-09-23 07:44] VITALS: BP 112/60
--- NOTE | 2016-09-23 08:07 | NUR ---
Late Entry from 09/22/16 @ 0800 Requested by nursing staff to evaluate patient for a "deep purple area" that was noted to her coccyx and buttocks. Attepted to consult patient yesterday 09/21/16 however she was out of bed to chair in a delirius state and wound was unable to be visualized at that time. Todays assessment reveals a purple non blanchable area to her coccyx/ r. buttock measuring 4 x 0.6cm presenting clincally as an area of deep tissue injury- area is intact and periwound is red and blanchable. Per nursing staff a catergory 2 mattress had been ordered on the day of admission however had no arrived and a repeat order was placed earlier this morning. Impression: DTI to coccyx/ r. buttock Recommendations: Completely offlaod area and encourage frequent turning and repositioning. Please place patient on catergory 2 mattress THANG when available. Obtain a nutrition consult. Please notify wound care with any further decline. Follow all additional pressure injury guidelines.
[2016-09-23 08:27] LABS: PT 13.8 SEC (9.4-12.5)
[2016-09-23 08:40] LABS: ABSOLUTE BASOPHIL COUNT 0 /CUMM (0.0-0.2); ABSOLUTE EOSINOPHIL COUNT 0.3 /CUMM (0.0-0.7); ABSOLUTE GRANULOCYTE CT 4.7 /CUMM (1.4-6.5); ABSOLUTE LYMPH COUNT 1.5 /CUMM (1.2-3.4); ABSOLUTE MONOCYTE COUNT 0.7 /CUMM (0.10-0.60); BASOPHIL % 0.4 % (0.0-2.0); EOSINOPHIL % 3.8 % (0-5); GRANULOCYTE % 65.7 % (42.2-75.2); HEMATOCRIT 29.3 % (37-47); MEAN CORPUSCULAR HGB 27.3 PG (27.0-31.0); MEAN CORPUSCULAR HGB CONC 33.8 G/DL (33.0-37.0); MEAN PLATELET VOLUME 8.1 FL (7.4-10.4); PLATELET COUNT 297 /CUMM (130-400); RBC DISTRIBUTION WIDTH 15.1 % (11.5-14.5); RED BLOOD CELL CT 3.62 /CUMM (4.20-5.40); WHITE BLOOD CELL COUNT 7.1 /CUMM (4.8-10.8)
--- NOTE | 2016-09-23 10:00 | PN- Housestaff ---
TEGAN REYES,SHAWNEE 09/23/16 0959: Subjective Follow-up For: Altered mental status Tele-Events Since Last Visit: Anna ba with heart rates 80s to 90s. Subjective: Patient appears in no distress. Appears comfortable. Answers questions appropriately. She is delirious as she also talks sentences unrelated to the ongoing conversation. No overnight events reported. Had LP done over the weekend which did not show evidence of bacterial or viral meningitis/encephalitis. Review of Systems Constitutional: Reports: see HPI. Objective Last 24 Hrs of Vital Signs/I&O Vital Signs Date Time Temp Pulse Resp B/P Pulse O2 O2 Flow FiO2 Ox Delivery Rate 09/23 0849 82 112/64 09/23 0744 98.4 82 18 112/60 98 Room Air 09/22 2301 98.8 94 18 110/60 96 Room Air 09/22 1557 98.7 76 20 108/60 92 Room Air Intake & Output 09/23 1600 09/23 0800 09/23 0000 Intake Total 300 440 Output Total Balance 300 440 Intake, Oral 300 440 Physical Exam General Appearance: Alert, No Acute Distress Skin: No Rashes HEENT: PERRLA, Mucous Membr. moist/pink Cardiovascular: irregularly irregular, no murmurs Lungs: Clear to Auscultation Abdomen: Normal Bowel Sounds, Soft, No Tenderness Neurological: Normal Speech, Normal Tone, Reflexes 2+ Extremities: No Edema Current Medications: Current Medications Sig/Gary Start time Last Medication Dose Route Stop Time Status Admin Acetaminophen 650 MG .STK-MED ONE 09/22 2210 DC PO 09/22 2211 Acetaminophen 650 MG Q6P PRN 09/19 1200 AC 09/22 PO 2213 Acyclovir 700 MG Q8H 09/20 1600 DC 09/22 Dextrose/Water 250 ML IV 1735 Alprazolam 0.25 MG BID PRN 09/21 1446 AC PO 09/26 1359 Amoxicillin 500 MG TID 09/22 2200 AC 09/23 PO 0847 Atorvastatin Calcium 20 MG AT BEDTIME 09/19 220 AC 09/22 PO 2126 Ceftriaxone Sodium 1,000 MG Q24H 09/20 1130 DC 09/22 IV 1236 Cholecalciferol 1,000 IU DAILY 09/20 1000 AC 09/23 PO 0849 Diltiazem HCl 360 MG DAILY 09/19 1350 AC 09/23 PO 0847 Docusate Sodium 100 MG BID 09/23 1000 AC 09/23 PO 0847 Ezetimibe 10 MG DAILY 09/20 1000 AC 09/23 PO 0849 Furosemide 20 MG DAILY 09/20 1000 AC 09/23 PO 0847 Gabapentin 300 MG Q8 09/21 2200 AC 09/23 PO 0540 Insulin Aspart 0 TIDAC 09/19 1700 AC 09/23 SC 0744 Levothyroxine Sodium 0.0375 MG DAILY AC 09/21 0830 AC 09/23 PO 0540 Lisinopril 2.5 MG DAILY 09/19 1353 AC 09/23 PO 0849 Magnesium Chloride 64 MG TID 09/19 1600 AC 09/23 PO 0846 Potassium Chloride 40 MEQ ONCE ONE 09/22 1445 DC 09/22 PO 09/22 1446 1741 Senna/Docusate Sodium 1 TAB BID 09/23 1000 AC 09/23 PO 0847 Warfarin Sodium 5 MG COUMADIN 1700 ONE 09/22 1845 DC 09/22 PO 09/22 1846 2126 Last 24 Hrs of Lab/Robbie Results Last 24 Hrs of Labs/Mics: Laboratory Tests 09/23/16 0635: Anion Gap 10, Estimated GFR > 60, BUN/Creatinine Ratio 21.4, PT 13.8 H, INR 1.32 H, CBC w Diff NO MAN DIFF REQ, RBC 3.62 L, MCV 81.0, MCH 27.3, RDW 15.1 H, MPV 8.1, Gran % 65.7, Lymphocytes % 20.8, Monocytes % 9.3, Eosinophils % 3.8, Basophils % 0.4, Absolute Granulocytes 4.7, Absolute Lymphocytes 1.5, Absolute Monocytes 0.7 H, Absolute Eosinophils 0.3, Absolute Basophils 0, PUBS MCHC 33.8 Assessment/Plan Assessment: 65-year-old female with past medical history of cardiomyopathy status post AICD about 5 -6 years ago with recent generator change about a month ago, history of A. fib on Coumadin, history of hypertension, hyperlipidemia, asthma, diabetes mellitus, hypothyroidism, chronic hypomagnesemia complicated with seizures and V. tach, gastric bypass procedure. 1. Altered mental status - Etiology unclear. And for MRI. Will await cardiac recommendation regarding compatibility of the device and also results of device interrogation. - Continue to follow off of antibiotics. Patient has been afebrile over 24 hours. - Blood and urine culture negative so far. - EEG was normal - Renal ultrasound was unremarkable with no evidence of obstruction - Lyme titer pending 2. atrial fibrillation on Coumadin - Will dose coumadin today. 3. Diabetes mellitus - HBA1C is 6.0 - We cont beleive patient should be on Insulin. - We will discharge her PO medication and she can be monitored as outpatient - We will continue her on NSS 4. History of hypertension will continue on her home medication next 5. History of chronic hypomagnesemia without clear etiology: - Will continue slow mag DVT prophylaxis with Coumadin Full code Updated patients family about the plan for MRI and device intterogation Problem List: 1. Altered mental status, unspecified 2. Afib 3. Anxiety 4. Depression 5. HTN (hypertension) Pain Ratin Pain Location: headache Pain Goal: Remain pain free Pain Plan: tylenol Tomorrow's Labs & Rationales: yes to monitor INR Consulting Request: Consulting Specialty: Neurology Consulting Physician: Dr.Beck SAROJ REYES,MARK 09/23/16 1014: Attending MD Review Statement Attending Statement Attending MD Statement: examined this patient, discuss w/resident/PA/OVEN EQUIPMENT REPAIRER, agreed w/resident/PA/OVEN EQUIPMENT REPAIRER, reviewed EMR data (avail), discussed with nursing, discussed with case mgmt Attending Assessment/Plan: Events over the weekend noted. Patient had an LP done on 09/21 which revealed 0 white cells. This was done after FFP was given to reverse her INR. Right now she is on amoxicillin for a Escherichia coli UTI. She is here with an acute confusional state of unclear etiology. Her EEG is normal. PT is recommending STR and we restarted her Coumadin. Will have to follow up closely and talk to cardiology about questionable device being interrogated and whether the device is MRI compatible.
--- NOTE | 2016-09-23 14:42 | PN- Infect Dx ---
Subjective Subjective: Afebrile without complaints Objective Last 24 Hrs of Vital Signs/I&O Vital Signs Date Time Temp Pulse Resp B/P Pulse O2 O2 Flow FiO2 Ox Delivery Rate 09/23 0849 82 112/64 09/23 0744 98.4 82 18 112/60 98 Room Air 09/22 2301 98.8 94 18 110/60 96 Room Air 09/22 1557 98.7 76 20 108/60 92 Room Air Intake & Output 09/23 1600 09/23 0800 09/23 0000 Intake Total 300 440 Output Total Balance 300 440 Intake, Oral 300 440 Physical Exam Other Physical Findings: She is awake and alert, oriented 3, and in no acute distress Lungs are clear Heart regular rhythm with no murmur Neuro is without focality Results Last 24 Hours of Lab Results: Laboratory Tests 09/23 0635 Chemistry Sodium (137 - 145 mmol/L) 140 Potassium (3.5 - 5.1 mmol/L) 4.0 Chloride (98 - 107 mmol/L) 104 Carbon Dioxide (22 - 30 mmol/L) 26 Anion Gap (5 - 16) 10 BUN (7 - 17 mg/dL) 15 Creatinine (0.5 - 1.0 mg/dL) 0.7 Estimated GFR (>60 ml/min) > 60 BUN/Creatinine Ratio (7 - 25 %) 21.4 Coagulation PT (9.4 - 12.5 SEC) 13.8 H INR (0.90 - 1.19) 1.32 H Hematology CBC w Diff NO MAN DIFF REQ WBC (4.8 - 10.8 /CUMM) 7.1 RBC (4.20 - 5.40 /CUMM) 3.62 L Hgb (12.0 - 16.0 G/DL) 9.9 L Hct (37 - 47 %) 29.3 L MCV (81.0 - 99.0 FL) 81.0 MCH (27.0 - 31.0 PG) 27.3 RDW (11.5 - 14.5 %) 15.1 H Plt Count (130 - 400 /CUMM) 297 MPV (7.4 - 10.4 FL) 8.1 Gran % (42.2 - 75.2 %) 65.7 Lymphocytes % (20.5 - 51.1 %) 20.8 Monocytes % (1.7 - 9.3 %) 9.3 Eosinophils % (0 - 5 %) 3.8 Basophils % (0.0 - 2.0 %) 0.4 Absolute Granulocytes (1.4 - 6.5 /CUMM) 4.7 Absolute Lymphocytes (1.2 - 3.4 /CUMM) 1.5 Absolute Monocytes (0.10 - 0.60 /CUMM) 0.7 H Absolute Eosinophils (0.0 - 0.7 /CUMM) 0.3 Absolute Basophils (0.0 - 0.2 /CUMM) 0 PUBS MCHC (33.0 - 37.0 G/DL) 33.8 Last 24 Hours of Robbie Results: Blood cultures September 19 remain negative CSF culture September 21 negative Assessment/Plan Impression: Doing well with her mental status appearing to be back to her baseline, with no evidence for any neurologic deficits and with lumbar puncture, repeat CT scans of the head and EEG all normal. She remains afebrile with white blood cell count normal now on Amoxicillin for a possible urinary tract infection, though she had no urinary symptoms and I am not convinced that this can explain her recently altered mental status. Suggestion: 1. Continue Amoxicillin
[2016-09-23 16:29] VITALS: BP 112/60
--- NOTE | 2016-09-23 16:39 | NUR ---
MD MONTRELL FOWLER AT BEDSIDE SPEAKING TO PATIENT. PATIENT ON RM AIR AT THIS TIME PER MD WILL ELEVATE PT HOB AND CONT MONITORING PT. PATIENT IN BED AT THIS TIME. NO ACUTE S/S RESP DISTRESS NOTED.
--- NOTE | 2016-09-23 22:34 | NUR ---
PT C/O INDIGESTION. MD YEE AWARE, PRN TUMS ORDERED AND ADMINISTERED.
[2016-09-24 00:06] VITALS: BP 128/78
--- NOTE | 2016-09-24 07:28 | NUR ---
PATIENT ALERT AND ORIENTED TO PERSON AND PLACE. PATIENT AROUSABLE TO VOICE AND TOUCH. PATIENT NOT ALERT TO TIME. PATIENT COULD NOT ANSWER WHAT DAY OR MONTH IT IS. VITALS - T 97.7 RR 18 SPO2 94/95% HR 73 BP 122/72 PATIENT HAS LEFT LOWER LEG WEAKNESS AND STATES SHE HAS BILATERAL KNEE PAIN. PATIENT UNABLE TO GIVE PAIN A NUMBER FROM 1-10. MD SHAWNEE JAVED AT BEDSIDE AT THIS TIME.
[2016-09-24 07:30] VITALS: BP 122/72
--- NOTE | 2016-09-24 08:43 | PN- Housestaff ---
TEGAN REYES,SHAWNEE 09/24/16 0843: Subjective Follow-up For: Acute confusional state Subjective: Is told by the nurse this morning the patient is obtunded and not responding. When I saw Review of Systems Constitutional: Reports: see HPI. Objective Last 24 Hrs of Vital Signs/I&O Vital Signs Date Time Temp Pulse Resp B/P Pulse O2 O2 Flow FiO2 Ox Delivery Rate 09/24 1114 97.7 73 18 122/72 09/24 0730 97.7 73 18 122/72 95 Room Air 09/24 0006 98.5 91 18 128/78 96 Room Air 09/23 1629 98.5 95 20 112/60 98 Room Air Intake & Output 09/24 1600 09/24 0800 09/24 0000 Intake Total 250 120 Output Total 250 Balance 0 120 Intake, IV 0 Intake, Oral 250 120 Number 0 Bowel Movements Output, Urine 250 Physical Exam General Appearance: Alert, Cooperative, No Acute Distress Skin: No Rashes, No Breakdown Cardiovascular: Normal S1, Normal S2, irregular irregular Lungs: Clear to Auscultation Abdomen: Normal Bowel Sounds, Soft Neurological: Normal Speech Extremities: No Clubbing, No Cyanosis, No Edema Current Medications: Current Medications Sig/Gary Start time Last Medication Dose Route Stop Time Status Admin Acetaminophen 650 MG Q6P PRN 09/19 1200 AC 09/22 PO 2213 Alprazolam 0.25 MG BID PRN 09/21 1446 DC 09/23 PO 09/26 1359 2105 Amoxicillin 500 MG TID 09/22 2200 AC 09/24 PO 1113 Atorvastatin Calcium 20 MG AT BEDTIME 09/19 2200 AC 09/23 PO 2103 Bisacodyl 10 MG ONCE ONE 09/24 0745 CAN ME 09/24 0746 Calcium Carbonate 500 MG ONCE ONE 09/23 2230 DC 09/23 PO 09/23 2231 2230 Cholecalciferol 1,000 IU DAILY 09/20 1000 AC 09/24 PO 1114 Diltiazem HCl 360 MG DAILY 09/19 1350 AC 09/24 PO 1113 Docusate Sodium 100 MG BID 09/23 1000 AC 09/24 PO 1113 Ezetimibe 10 MG DAILY 09/20 1000 AC 09/24 PO 1114 Furosemide 20 MG DAILY 09/20 1000 AC 09/24 PO 1113 Gabapentin 300 MG Q8 09/21 2200 AC 09/24 PO 1238 Insulin Aspart 0 TIDAC 09/19 1700 AC 09/24 SC 1237 Levothyroxine Sodium 0.0375 MG DAILY AC 09/21 0830 AC 09/23 PO 0540 Lisinopril 2.5 MG DAILY 09/19 1353 AC 09/24 PO 1114 Magnesium Chloride 64 MG TID 09/19 1600 AC 09/24 PO 1114 Polyethylene Glycol 17 GM DAILY 09/23 1615 AC 09/24 PO 1114 Senna/Docusate Sodium 1 TAB BID 09/23 1000 AC 09/24 PO 1114 Warfarin Sodium 7.5 MG COUMADIN 1700 ONE 09/23 1700 DC 09/23 PO 09/23 1701 1601 Last 24 Hrs of Lab/Robbie Results Last 24 Hrs of Labs/Mics: Laboratory Tests 09/24/16 0658: PT 15.0 H, INR 1.43 H Assessment/Plan Assessment: 65-year-old female with past medical history of cardiomyopathy status post AICD about 5 -6 years ago with recent generator change about a month ago, history of A. fib on Coumadin, history of hypertension, hyperlipidemia, asthma, diabetes mellitus, hypothyroidism, chronic hypomagnesemia complicated with seizures and V. tach, gastric bypass procedure. 1. Altered mental status - Etiology unclear. - possible due on UTI as etiology for acute confusional state is unclear. -continue Amox for a total of 14 days as she had fever. Patient has been afebrile over 24 hours. - Blood and urine culture negative so far. - EEG was normal - Renal ultrasound was unremarkable with no evidence of obstruction - Lyme titer negative 2. atrial fibrillation on Coumadin - Will dose coumadin today. 3. Diabetes mellitus: Hemoglobin A1c was 6.0 which was checked during this admission. Given her age we recommend avoiding tight glycemic control and low sugar can cause acute confusion. Decision was made to discontinue Janumet and start her on Metformin 500 BID. Will need repeat HBA1C in 3 months and her medication regimen can be adjusted based on the results. Recommended to continue by mouth medications and NovoLog sliding scale. 4. History of hypertension will continue on her home medication next 5. History of chronic hypomagnesemia without clear etiology: - Will continue slow mag DVT prophylaxis with Coumadin Full code She will need follow-up with neurology for alteration in mentation/delirium as outpatient. Will refer to urology for rec UTI Problem List: 1. Altered mental status, unspecified 2. Afib 3. Weakness 4. Somnolence 5. Anxiety 6. Depression Pain Ratin Pain Location: knee pain Pain Goal: Remain pain free Pain Plan: tylenol Tomorrow's Labs & Rationales: pt to be discharged today Consulting Request: Consulting Specialty: Neurology Consulting Physician: Dr.Beck SAROJ REYES,MARK 09/24/16 1048: Attending MD Review Statement Attending Statement Attending MD Statement: examined this patient, discuss w/resident/PA/ENTHONE SOLDER STRIPPER, agreed w/resident/PA/ENTHONE SOLDER STRIPPER, discussed with family, reviewed EMR data (avail), discussed with nursing, discussed with case mgmt, reviewed images Attending Assessment/Plan: Pt is doing much better right now. She is awake and alert and talking on her phone. She appears to have these intermittent episodes of confusion of unclear etiology. She's had a negative CT head with IV contrast, negative EEG and negative LP. At this point we have her on amoxicillin for the urinary tract infection given the fever and the altered mentation. She'll finish 14 days of the amoxicillin. We've restarted her Coumadin and the STR will follow-up closely to make sure it's therapeutic. She stable to go with close outpatient follow-up.
--- NOTE | 2016-09-24 08:45 | Discharge Summary ---
See Addendum Visit Information Visit Dates Admission Date: 09/19/16 Discharge Date: 09/24/16 Hospital Course Course Attending Physician: SAROJ REYES,MARK Castillo Primary Care Physician: HOME REYES,GABRIELA Okeefe Consulting Request: Consulting Specialty: Neurology Consulting Physician: Hospital Course: Patient is a 65-year-old female with past medical history of cardiomyopathy status post AICD about 5 -6 years ago with recent generator change about a month ago, history of A. fib on Coumadin, history of hypertension, hyperlipidemia, asthma, diabetes mellitus, hypothyroidism, chronic hypomagnesemia complicated with seizures and V. tach, gastric bypass procedure , recently admitted to [facility] due to recurrent falls and was discharged to short-term rehabilitation ([facility] )presented to the ED through ambulance with chief complaint of acute confusion with slurred speech started this morning. Vitals and admission blood pressure 120/79, respirations 15, pulse rate 115, temperature 97.9, oxygen saturation 97% on room air. Labs and admission to be seen 9.2, hemoglobin 10.5, hematocrit 31.3, platelets 271, sodium 139, creatinine 4.5, BUN 24, creatinine 0.7, troponins less than 0.01, blood glucose 103, INR 1.88. Hospital course 1. Acute confusion state : Patient was initially admitted to telemetry floor. CAT scan done on admission did not show evidence of acute territorial infarct or hemorrhage. Patient did not have a white count no fever hence no etiology of infection was suspected on admission. Blood cultures and urine cultures was drawn in the ED. Formal neurology consult was obtained recommended who agreed with the above management and consider LP if symptoms does not resolve. Next day of admission patient spiked a fever of 101.4. As per recommendation by infectious disease it solutions sales consultant decision was made to go ahead and proceed with lumbar puncture. EEG was normal. She was empirically started on ceftriaxone, and acyclovir for coverage of bacterial and viral meningitis/encephalitis. Given the patient's INR was subtherapeutic it was still more than 1.5 which is the cutoff for lumbar puncture. Her INR was reversed with FFP's and had fluroscopic guided lumbar punctures by IR. Results of lumbar puncture did not show any evidence of bacterial or viral infection and antibiotics discontinued. she was continued on amoxicillin for possible upper urinary tract infection as she spiked a temperature and UA on admission showed eveidenc of UTI. MRI was not done as the AICD is not compatible. Patient has been afebrile over the last 48 hours with normal white count or throughout her admission. She did have confusional state on and off during the hospital stay, etiology unclear possibly may be due to infection/medications. She was off of benzos and narcotics and medications that could precipitate delirium. We reduced the dose of gabapentin from 300 every 8 to 100 every 8 hours as there was no clear etiology which could precipitate her confusional state. Please avoid narcotics and benzos for anxiety and pain. Encourage good sleep, daily bowel movements as this could precipitate delirium. Can try Tylenol for pain and topical agents for arthritis. She should be continue on amoxicillin 500 TID untill Oct 02 for a total of 14 days.( Pt has h/o recurrent UTI) 2. History of atrial fibrillation/cardiomyopathy/AICD: Patient was monitored in telemetry. No telemetry events reported during her hospital course. TTE was obtained which was unchanged form the past. She was in atrial fibrillation with rate controlled. She was continued on Coumadin with INR monitoring after lumbar puncture. Her other medications including Lasix and Cardizem were continued at her home dose. 3. History of hypertension/Hyperlipidemia: She was on Zetia, statins, lisinopril, diltiazem which was continued 4. Hypothyroidism: Was continued on her home dose. TSH within normal limits. 5. Chronic hypomagnesemia with unclear etiology: She was continued on Slow-Mag. She did receive IV medication periodically. 6. Vitamin D deficiency/low vitamin B12: She was started on 1000 international units of vitamin D which should be continued. We'll continue on 1000 g of vitamin B12 7. Diabetes mellitus: Hemoglobin A1c was 6.0 which was checked during this admission. Given her age we recommend avoiding tight glycemic control and low sugar can cause acute confusion. Decision was made to discontinue Janumet and start her on Metformin 500 BID. Will need repeat HBA1C in 3 months and her medication regimen can be adjusted based on the results. Recommended to continue by mouth medications and NovoLog sliding scale. 8. Anxiety/depression: She is on venlafaxine which should be continued. She will need follow-up with neurology for alteration in mentation/delirium as outpatient. Will refer to urology for rec UTI Allergies: Coded Allergies: acetaminophen (09/19/16) oxycodone (From PERCOCET) (UNKNOWN 09/19/16) morphine (HEADACHES, SWEATING 09/19/16) nitroglycerin (MADE MY HEART GO CRAZY 09/19/16) Significant Procedures: IR - FLUORO NEEDLE GUIDANCE SERVICE DATE: 09/21/16-1854 EEG on 09/20/16: Normal EEG in wake state CAT - CT HEAD W IV CONTRAST;SERVICE DATE: 09/20/16: No acute intracranial pathology. US - US-RENAL/KIDNEY: SERVICE DATE: 09/20/16-170 Unremarkable renal ultrasound. No evidence of obstruction. TTE: 09/20/16 1. Minimal aortic sclerosis is present with no valvular stenosis or insufficiency. 2. Mitral leaflet thickening is present with minimal to mild mitral insufficiency and moderate left atrial enlargement. 3. There is no pericardial fluid detected. 4. The left ventricular chamber size and systolic function are normal. 5. Mild enlargement of the right heart chambers is present with mild to moderate tricuspid insufficiency, minimal pulmonic insufficiency and no evidence of pulmonary hypertension. 6. Pacemaker wires are noted in the right heart chambers. Pertinent Lab Results: Laboratory Tests 09/24 09/23 0658 0635 Chemistry Sodium (137 - 145 mmol/L) 140 Potassium (3.5 - 5.1 mmol/L) 4.0 Chloride (98 - 107 mmol/L) 104 Carbon Dioxide (22 - 30 mmol/L) 26 Anion Gap (5 - 16) 10 BUN (7 - 17 mg/dL) 15 Creatinine (0.5 - 1.0 mg/dL) 0.7 Estimated GFR (>60 ml/min) > 60 BUN/Creatinine Ratio (7 - 25 %) 21.4 Coagulation PT (9.4 - 12.5 SEC) 15.0 H 13.8 H INR (0.90 - 1.19) 1.43 H 1.32 H Hematology CBC w Diff NO MAN DIFF REQ WBC (4.8 - 10.8 /CUMM) 7.1 RBC (4.20 - 5.40 /CUMM) 3.62 L Hgb (12.0 - 16.0 G/DL) 9.9 L Hct (37 - 47 %) 29.3 L MCV (81.0 - 99.0 FL) 81.0 MCH (27.0 - 31.0 PG) 27.3 RDW (11.5 - 14.5 %) 15.1 H Plt Count (130 - 400 /CUMM) 297 MPV (7.4 - 10.4 FL) 8.1 Gran % (42.2 - 75.2 %) 65.7 Lymphocytes % (20.5 - 51.1 %) 20.8 Monocytes % (1.7 - 9.3 %) 9.3 Eosinophils % (0 - 5 %) 3.8 Basophils % (0.0 - 2.0 %) 0.4 Absolute Granulocytes (1.4 - 6.5 /CUMM) 4.7 Absolute Lymphocytes (1.2 - 3.4 /CUMM) 1.5 Absolute Monocytes (0.10 - 0.60 /CUMM) 0.7 H Absolute Eosinophils (0.0 - 0.7 /CUMM) 0.3 Absolute Basophils (0.0 - 0.2 /CUMM) 0 PUBS MCHC (33.0 - 37.0 G/DL) 33.8 Disposition Summary Disposition Principal Diagnosis: 1. Acute confusion/delerium 2. Additional Diagnosis: 1. History of atrial fibrillation/cardiomyopathy/AICD 2. History of hypertension/Hyperlipidemia 3. Hypothyroidism 4. Chronic hypomagnesemia with unclear etiology 5. Vitamin D deficiency/low vitamin B12 Discharge Disposition: STR Discharge Instructions General Discharge Information Code Status: Full Code Patient's Diet: Diabetic diet Patient's Activity: As tolerated with PT Follow-Up Instructions/Appts: 1. Follow-up with her primary care physician in a week upon discharge 2. Follow-up with neurology for further evaluation of confusion. 3. Follow-up with cardiology as per regular appointment. 4. Avoid medications including benzos and narcotics 5. F/u INR as we restarted the Coumadin. Keep INR therapeutic, 2-3 Encourage good sleep, daily bowel movements as this could precipitate delirium. Can try Tylenol for pain and topical agents for arthritis. Medications at Discharge Discharge Medications: Stop taking the following medications: Metformin Hydrochloride/Susan (Janumet 1000 MG-50 MG) 1 TAB TAB ORAL TWICE DAILY Days = 30 Gabapentin (Gabapentin) 600 MG TABLET ORAL TWICE DAILY Qty = 90 Alprazolam (Alprazolam) 1 MG TABLET ORAL DAILY Qty = 30 Continue taking these medications: Diltiazem HCl (Diltiazem ER) 360 MG CAPSULE.ER 1 Capsule ORAL DAILY Comments: Last Taken: 08/14/16 Time: 0900 Atorvastatin Calcium (Lipitor) 20 MG TABLET 1 Tablet ORAL BEDTIME Comments: Last Taken: 08/13/16 Time: 2200PM Albuterol Sulfate (Proair Hfa) 0.09 MG/Actuation WING 2 PUFF Inhale through mouth THREE TIMES DAILY as needed for ASTHMA Days = 67 Insulin Aspart, Recombinant (Novolog Flexpen) (Unknown Strength) INSULN.PEN Inject into fatty tissue SEE SLIDING SCALE Days = 45 Instructions: Dose <80mg/dl Initiate hypoglycemic protocol 80-150mg/dl 2units 151-200mg/dl 4units 201-250mg/dl 6units 251-300mg/dl 8units 301-350mg/dl 10units 351-400mg/dl 12units more than 400mg/dl 14units Bedtime 201-250mg/dl 2units 251-300mg/dl 4units 301-350mg/dl 6units 351-400mg/dl 8units more than 400mg/dl 10units Comments: Last Taken: 02/02/16 Time: 8 AM Warfarin Sodium (Coumadin) 5 MG TABLET 1 Tablet ORAL DAILY Instructions: please dose warfarin as per INR. Comments: Lisinopril (Lisinopril) 2.5 MG TABLET 1 Tablet ORAL DAILY Comments: Last Taken:08/14/16 Time:0900 Ezetimibe (Zetia) 10 MG TABLET 1 Tablet ORAL DAILY Comments: Last Taken: 08/14/16 Time: 0900 Levothyroxine Sodium (Synthroid) 25 MCG TABLET 1.5 Tablet ORAL DAILY BEFORE BREAKFAST Days = 30 Comments: Last Taken: 08/14/16 Time: 0530AM Venlafaxine HCl (Venlafaxine HCl ER) 150 MG CAP.ER.24H 1 Capsule ORAL DAILY Qty = 30 Comments: Last Taken: 08/14/16 Time: 0900 Furosemide (Furosemide) 20 MG TABLET 1 Tablet ORAL DAILY Comments: NOT GIVEN IN HOSPITAL Magnesium Chloride (Slow-Mag) 71.5 MG TABLET.DR 1 Tablet ORAL THREE TIMES DAILY Comments: Last Taken:08/14/16 Time:0900 Acetaminophen With Codeine (Acetaminophen-Cod #3 Tablet) 300 MG-30 MG TABLET 1 Tablet ORAL THREE TIMES DAILY as needed for PAIN Qty = 90 Comments: did not receive in hospital Warfarin Sodium (Coumadin) 5 MG TABLET 5.5 Milligram ORAL DAILY Instructions: ALTERNATES WITH 5 MG COUMADIN PO DAILY based on inr Start taking the following new medications: Docusate Sodium (Docusate Sodium) 100 MG CAPSULE 1 Tablet ORAL TWICE DAILY Days = 30 No Refills Cholecalciferol (Vitamin D3) 1,000 UNIT TABLET 1,000 International Unit ORAL DAILY Days = 30 No Refills Amoxicillin (Amoxicillin) 500 MG CAPSULE 1 Tablet ORAL THREE TIMES DAILY Days = 8 No Refills Instructions: TAKE UNTILL 10/02/16 Cyanocobalamin (Vitamin B-12) 1,000 MCG TABLET 1 Tablet ORAL DAILY Days = 30 No Refills Gabapentin (Neurontin) 100 MG CAPSULE 1 Capsule ORAL THREE TIMES DAILY Days = 30 No Refills Alprazolam (Alprazolam) 0.25 MG TABLET 1 Tablet ORAL 2 x Daily as needed as needed for ANXIETY Days = 30 No Refills Metformin HCl (Metformin HCl) 500 MG TABLET 1 Tablet ORAL TWICE DAILY Days = 30 No Refills Copies To: HOME REYES,GABRIELA Okeefe Attending MD Review Statement Documenting Attending: SAROJ REYES,MARK Castillo
--- NOTE | 2016-09-24 08:48 | NUR ---
PATIENT ALERT AND ORIENTED X 3 AT THIS TIME. PATIENT ALERT TO PERSON, PLACE, AND TIME. PATIENT CORRECTLY STATED THAT TODAY WAS FRIDAY. PATIENT SITTING UP IN BED AT THIS TIME AND TALKING ON HER CELLPHONE. THIS NURSE WILL CONT TO MONITOR PATIENT.
[2016-09-24] MEDS ORDERED: VITAMIN D31000 UNI2 PO (09:16)
[2016-09-24] MEDS ORDERED: DOCUSATE SODIU100 M3 PO (09:16)
[2016-09-24] MEDS ORDERED: VITAMIN B-121000 MC3 PO (09:18)
[2016-09-24] MEDS ORDERED: NEURONTIN100 M1 PO (09:19)
--- NOTE | 2016-09-24 09:23 | Patient Discharge Instructions ---
Discharge Instructions General Discharge Information You were seen/treated for: Altered mental status, confusion Special Instructions: 1. Follow-up with her primary care physician in a week upon discharge 2. Follow-up with neurology for further evaluation of confusion. 3. Follow-up with cardiology as per regular appointment. 4. Avoid medications including benzos and Narcotics 5. Referral to urology for recurrent UTI Diet Recommended Diet: Diabetic Activity Activity Self Limited: Yes Acute Coronary Syndrome Inclusion Criteria At DC or during hospital stay patient has or had the following: ACS DIAGNOSIS No Discharge Core Measures Meds if any: Prescribed or Continued at Discharge Meds if any: NOT Prescribed or Continued at Discharge Congestive Heart Failure Inclusion Criteria At DC or during hospital stay patient has or had the following: CHF DIAGNOSIS No Discharge Core Measures Meds if any: Prescribed or Continued at Discharge Meds if any: NOT Prescribed or Continued at Discharge Cerebrovascular accident Inclusion Criteria At DC or during hospital stay patient has or had the following: CVA/TIA Diagnosis No Discharge Core Measures Meds if any: Prescribed or Continued at Discharge Meds if any: NOT Prescribed or Continued at Discharge Venous thromboembolism Inclusion Criteria VTE Diagnosis No VTE Type NONE VTE Confirmed by (Test) NONE Discharge Core Measures - Per Current guidelines, there needs to be overlap - treatment for the first 5 days of Warfarin therapy. - If discharged on Warfarin prior to 5 days of - overlap therapy, the patient will need to be - assessed for post discharge needs including - *Post discharge parental anticoagulation - *Warfarin and/or parental anticoagulation education - *Follow up date to check INR post discharge At least 5 days overlap therapy as Inpatient No Meds if any: Prescribed or Continued at Discharge Note: Overlap Therapy is Warfarin and Anticoagulant Meds if any: NOT Prescribed or Continued at Discharge
[2016-09-24] MEDS ORDERED: AMOXICILLIN500 M2 PO (09:53)
[2016-09-24] MEDS ORDERED: ALPRAZOLAM0.25 M1 PO (09:54)
[2016-09-24] MEDS ORDERED: METFORMIN HCL500 M3 PO (09:55)
[2016-09-24 11:14] VITALS: BP 122/72
--- NOTE | 2016-09-24 14:01 | PN- Infect Dx ---
Subjective Subjective: Afebrile without complaints. She apparently is still somewhat aphasic though much improved. Objective Last 24 Hrs of Vital Signs/I&O Vital Signs Date Time Temp Pulse Resp B/P Pulse O2 O2 Flow FiO2 Ox Delivery Rate 09/24 1114 97.7 73 18 122/72 09/24 0730 97.7 73 18 122/72 95 Room Air 09/24 0006 98.5 91 18 128/78 96 Room Air 09/23 1629 98.5 95 20 112/60 98 Room Air Intake & Output 09/24 1600 09/24 0800 09/24 0000 Intake Total 250 120 Output Total 250 Balance 0 120 Intake, IV 0 Intake, Oral 250 120 Number 0 Bowel Movements Output, Urine 250 Physical Exam Other Physical Findings: She appears comfortable in no acute distress. She is oriented and mostly appropriate, though still occasionally aphasic Lungs are clear Neuro is without focality Results Last 24 Hours of Lab Results: Laboratory Tests 09/24 0658 Coagulation PT (9.4 - 12.5 SEC) 15.0 H INR (0.90 - 1.19) 1.43 H Last 24 Hours of Robbie Results: CSF culture September 21 negative Assessment/Plan Impression: Overall improved with temperatures and white blood cell count remaining normal on Amoxicillin Day 5 of treatment for a possible urinary tract infection secondary to Escherichia coli, though she has had no urinary symptoms and I am not convinced that this was the cause of her altered mental status. It appears that she may be back to her baseline, in which case her aphasia remains unexplained and may warrant further evaluation. Suggestion: 1. Neurology follow-up 2. Consider psychiatric input at some point if above nonrevealing 3. Continue Amoxicillin for 9 more days to complete a 14 day course of treatment
--- NOTE | 2016-09-24 14:05 | PN- Cardiology ---
Subjective Subjective: The patient reports that she is feeling well. No chest pain. No palpitations. No diaphoresis. No lightheadedness or dizziness. No syncope. She is planning to have right knee surgery as an outpatient. Objective Vital Signs and I&Os Vital Signs Date Time Temp Pulse Resp B/P Pulse O2 O2 Flow FiO2 Ox Delivery Rate 09/24 1114 97.7 73 18 122/72 09/24 0730 97.7 73 18 122/72 95 Room Air 09/24 0006 98.5 91 18 128/78 96 Room Air 09/23 1629 98.5 95 20 112/60 98 Room Air Intake & Output 09/24 1600 09/24 0800 09/24 0000 09/23 1600 09/23 0800 09/23 0000 Intake Total 250 120 300 440 Output Total 250 200 Balance 0 120 -200 300 440 Intake, IV 0 Intake, Oral 250 120 300 440 Number 0 Bowel Movements Output, Urine 250 200 Physical Exam: Gen: NAD HEENT: normal Lungs: Decreased breath sounds, normal resp. effort Heart: Irregular, S1, S2, 2/6 systolic murmur Abdomen: Soft, nontender, no masses Extremities: No clubbing, cyanosis, or edema. Neuro: Alert and oriented x 3, cranial nerves intact Current Medications: Current Medications Sig/Gary Start time Last Medication Dose Route Stop Time Status Admin Acetaminophen 650 MG Q6P PRN 09/19 1200 AC 09/22 PO 2213 Alprazolam 0.25 MG BID PRN 09/21 1446 DC 09/23 PO 09/26 1359 2105 Amoxicillin 500 MG TID 09/220 AC 09/24 PO 1113 Atorvastatin Calcium 20 MG AT BEDTIME 09/19 2200 AC 09/23 PO 2103 Bisacodyl 10 MG ONCE ONE 09/24 0745 CAN KS 09/24 0746 Calcium Carbonate 500 MG ONCE ONE 09/23 2230 DC 09/23 PO 09/23 2231 2230 Cholecalciferol 1,000 IU DAILY 09/20 1000 AC 09/24 PO 1114 Diltiazem HCl 360 MG DAILY 09/19 1350 AC 09/24 PO 1113 Docusate Sodium 100 MG BID 09/23 1000 AC 09/24 PO 1113 Ezetimibe 10 MG DAILY 09/20 1000 AC 09/24 PO 1114 Furosemide 20 MG DAILY 09/20 1000 AC 09/24 PO 1113 Gabapentin 300 MG Q8 09/21 2200 AC 09/24 PO 1238 Insulin Aspart 0 TIDAC 09/19 1700 AC 09/24 SC 1237 Levothyroxine Sodium 0.0375 MG DAILY AC 09/21 0830 AC 09/23 PO 0540 Lisinopril 2.5 MG DAILY 09/19 1353 AC 09/24 PO 1114 Magnesium Chloride 64 MG TID 09/19 1600 AC 09/24 PO 1114 Polyethylene Glycol 17 GM DAILY 09/23 1615 AC 09/24 PO 1114 Senna/Docusate Sodium 1 TAB BID 09/23 1000 AC 09/24 PO 1114 Warfarin Sodium 7.5 MG COUMADIN 1700 ONE 09/23 1700 DC 09/23 PO 09/23 1701 1601 Results Last 48 Hrs of Labs/Mics: Laboratory Tests 09/24/16 0658: PT 15.0 H, INR 1.43 H 09/23/16 0635: Anion Gap 10, Estimated GFR > 60, BUN/Creatinine Ratio 21.4, PT 13.8 H, INR 1.32 H, CBC w Diff NO MAN DIFF REQ, RBC 3.62 L, MCV 81.0, MCH 27.3, RDW 15.1 H, MPV 8.1, Gran % 65.7, Lymphocytes % 20.8, Monocytes % 9.3, Eosinophils % 3.8, Basophils % 0.4, Absolute Granulocytes 4.7, Absolute Lymphocytes 1.5, Absolute Monocytes 0.7 H, Absolute Eosinophils 0.3, Absolute Basophils 0, PUBS MCHC 33.8 Assessment/Plan Assessment/Plan Assessment: 1. Acute confusion/delerium with slurred speech(rule out TIA/stroke) in the setting of subtherapeutic INR 2. History of AF / CM / AICD 3. Hypoglycemia history of diabetes mellitus- 4. History of hypertension / hyperlipidemia 5. History of hypothyroidism 6. History of chronic hypomagnesemia without clear etiology complicated with seizures and polymorphic VT. 7. History of asthma 8. Anemia 9. Preop for knee surgery Plan: * Continue current cardiac medications. * Follow up with Dr. Patterson in the office in 2 weeks to be reevaluated prior to surgery. Continue telemetry? No
[2016-09-30] MEDS ORDERED: JANUMET 50-1,01 EACH PO (13:07)
[2016-09-30] MEDS ORDERED: ESCITALOPRAM OX20 MG PO (13:08)
[2016-09-30] MEDS ORDERED: FOLIC ACID1 M1 PO (13:09)
[2016-09-30] MEDS ORDERED: MECLIZINE HCL25 MG PO (13:09)
[2016-09-30] MEDS ORDERED: LANTUS SOL100 UNIT/1 SC (13:10)
== END 2016-09-24 15:08 | DRG 689 ==
LOC: ENRESERVDT → ENRESERVTM → ERH 09:25 → 1NO 11:40 → ENPENDDIS 11:40 → ERHI 11:40 → 1NO 13:30
PROVIDERS: Dermatology; Emergency Medicine; Internal Medicine; Student in an Organized Health Care Education/Training Program; ADMIT Internal Medicine
PROC: B01BZZZ Fluoroscopy of Spinal Cord (ICD-10-PCS; principal; 2016-09-21)
PROC: 009U3ZX Drainage of Spinal Canal, Percutaneous Approach, Diagnostic (ICD-10-PCS; principal; 2016-09-21)
PROC: 30233N1 Transfusion of Nonautologous Red Blood Cells into Peripheral Vein, Percutaneous Approach (ICD-10-PCS; 2016-09-21)
DX: N39.0 Urinary tract infection, site not specified (principal); G93.41 Metabolic encephalopathy; E11.42 Type 2 diabetes mellitus with diabetic polyneuropathy; E83.42 Hypomagnesemia; I48.0 Paroxysmal atrial fibrillation; Z95.810 Presence of automatic (implantable) cardiac defibrillator; I48.91 Unspecified atrial fibrillation; Z79.01 Long term (current) use of anticoagulants; I10 Essential (primary) hypertension; E78.5 Hyperlipidemia, unspecified; J45.909 Unspecified asthma, uncomplicated; Z79.4 Long term (current) use of insulin; E03.9 Hypothyroidism, unspecified; R41.0 Disorientation, unspecified; B96.20 Unspecified Escherichia coli [E. coli] as the cause of diseases classified elsewhere; R41.82 Altered mental status, unspecified
CPT/HCPCS: 1NSP; 86618; 87070; 87075; 87205; 87529; 36415; 76775; 77002; 80307; 81001; 82436; 87040; 87086; 88305; 93005; 93010; 93306; 94799; 95816; 96365; 96366; 96374; 97110-GO; 97116-GO; 97162-GP; 97530-GO; J0696; J1650; J7040; J7042; J7060; P9017

== ENCOUNTER 2016-12-15 11:55 | Inpatient (IN) | payer OTHER ==
[~2016-12-15] VITALS: Ht 175.3 cm; Wt 101.2 kg
[~2016-12-15 11:55] MED LIST changes: +ALPRAZOLAM0.25 M1 PO; +AMOXICILLIN500 M2 PO; +DOCUSATE SODIU100 M3 PO; +ESCITALOPRAM OX20 MG PO; +FOLIC ACID1 M1 PO; +JANUMET 50-1,01 EACH PO; +LANTUS SOL100 UNIT/1 SC; +METFORMIN HCL500 M3 PO; +NEURONTIN100 M1 PO; +VITAMIN B-121000 MC3 PO; +VITAMIN D31000 UNI2 PO
--- NOTE | 2016-12-15 12:06 | NUR ---
PT BIBA FROM HOME FOR C/O SOB X 2 DAYS. INCREASING TODAY. STATED CHEST PAIN 2 DAYS AGO ALSO. DENIES C/P NOW. C/O NON-PRODUCTIVE COUGH. PT STATES EXERTIONAL SOB. DENIES FEVERS AT HOME, DENIES N/V/D. STATES SHE GETS UTI'S FREQUENTLY, STATES "I'M DUE FOR ONE". AYE STRATTON IN FOR EVAL.
[2016-12-15] MEDS ORDERED: NEURONTIN600 M1 PO (12:09)
--- NOTE | 2016-12-15 12:10 | ED DYSPNEA/ASTHMA COMPLAINT ---
History of Present Illness General Chief Complaint: Dyspnea (COPD, CHF, Other) Stated Complaint: BIBA SOB Source: patient, old records, EMS Exam Limitations: confusion, poor historian Vital Signs & Intake/Output Vital Signs & Intake/Output Vital Signs Date Time Temp Pulse Resp B/P Pulse O2 O2 Flow FiO2 Ox Delivery Rate 12/15 1327 99.8 118 20 142/80 12/15 1228 99.8 140 20 140/84 12/15 1201 99.8 140 20 140/84 99 Room Air Allergies Coded Allergies: acetaminophen (09/19/16) oxycodone (From PERCOCET) (UNKNOWN 09/19/16) morphine (HEADACHES, SWEATING 09/19/16) nitroglycerin (MADE MY HEART GO CRAZY 09/19/16) Reconcile Medications Atorvastatin Calcium (Lipitor) 20 MG TABLET 1 TAB PO BEDTIME HIGH CHOLESTEROL (Reported) Diltiazem HCl (Diltiazem ER) 360 MG CAPSULE.ER 1 CAP PO DAILY AFIB (Reported) Escitalopram Oxalate 20 MG TABLET 1 TAB PO DAILY MENTAL HEALTH (Reported) Ezetimibe (Zetia) 10 MG TABLET 1 TAB PO DAILY HIGH CHOLESTEROL (Reported) Folic Acid 1 MG TABLET 1 TAB PO DAILY SUPPLEMENT (Reported) Furosemide 20 MG TABLET 1 TAB PO DAILY HTN (Reported) Gabapentin 100 MG CAPSULE 1 CAP PO DAILY UNKNOWN (Reported) Insulin Aspart, Recombinant (Novolog Flexpen) (Unknown Strength) INSULN.PEN ( Unknown Dose) SEE SLIDING SCALE DIABETES (Reported) Insulin Glargine,Hum.rec.anlog (Lantus Solostar) 100 UNIT/ML (3 ML) INSULN.PEN 30 UNIT SC QPM DIABETES (Reported) Iron Carb,Gl/FA/B12/C/Docusate (Ferralet 90 Tablet) 90 MG-1 MG-12 MCG-120 MG-50 MG TABLET 1 TAB PO DAILY SUPPLEMENT (Reported) Levothyroxine Sodium 25 MCG TABLET 1 TAB PO DAILY AC THYROID (Reported) Lisinopril 2.5 MG TABLET 1 TAB PO DAILY HTN (Reported) Magnesium Chloride (Slow-Mag) 71.5 MG TABLET.DR 1 TAB PO TID SUPPLEMENT ( Reported) Meclizine HCl 25 MG TABLET 1 TAB PO TIDPRN PRN DIZZINESS (Reported) Metformin HCl 500 MG TABLET 1 TAB PO BID DIABETES Sitagliptin Phos/Metformin HCl (Janumet 50-1,000 MG Tablet) 50 MG-1,000 MG TABLET 1 TAB PO BID DIABETES (Reported) Venlafaxine HCl (Venlafaxine HCl ER) 150 MG CAP.ER.24H 1 CAP PO DAILY DEPRESSION (Reported) Warfarin Sodium (Coumadin) 5 MG TABLET 2 TAB PO DAILY AFIB (Reported) MED LIST STATES 2XDAY Triage Note: PT BIBA FROM HOME FOR C/O SOB X 2 DAYS. INCREASING TODAY. STATED CHEST PAIN 2 DAYS AGO ALSO. DENIES C/P NOW. C/O NON-PRODUCTIVE COUGH. PT STATES EXERTIONAL SOB. DENIES FEVERS AT HOME, DENIES N/V/D. STATES SHE GETS UTI'S FREQUENTLY, STATES "I'M DUE FOR ONE". AYE STRATTON IN FOR EVAL. Triage Nurses Notes Reviewed? yes HPI: Patient is a 66-year-old female presents complaining of dyspnea for the past 2 days. Occasional nonproductive cough. Dyspnea is mild to moderate at rest, severe with exertion. Patient has been sitting in a recliner for the past 2 days. Has not been lying flat but is not able to say if she has had any orthopnea. Patient had a 10 minute episode of midsternal chest pain 2 days ago. No chest pain since. Positive lower extremity edema. Patient reports she has taken her morning medications today when she checked her blood sugar this morning was 290. Positive heart palpitations. Patient denies fevers, chills, nausea, vomiting. (CHAYITO GRIFFITHS,ACOSTA) Past History Travel History Traveled to [place] past 21 day No Medical History Any Pertinent Medical History? 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 No (ACOSTA SIMMONS) Review of Systems Review of Systems Constitutional: Reports: malaise. Denies: chills, fever. EENTM: Reports: no symptoms. Respiratory: Reports: see HPI. Cardiovascular: Reports: see HPI. GI: Denies: abdominal pain, nausea, vomiting. Genitourinary: Reports: no symptoms. Musculoskeletal: Reports: no symptoms. Skin: Reports: no symptoms. Neurological/Psychological: Reports: no symptoms. Hematologic/Endocrine: Reports: no symptoms. Immunologic/Allergic: Reports: no symptoms. (ACOSTA SIMMONS) Physical Exam Physical Exam General Appearance: alert, awake Head: atraumatic, normal appearance Eyes: Bilateral: normal appearance, PERRL, EOMI. Ears, Nose, Throat: hearing grossly normal Neck: normal inspection, supple, full range of motion Respiratory: normal breath sounds, no respiratory distress, lungs clear Cardiovascular: irregularly irregular, tachycardic Peripheral Pulses: 2+ dorsalis pedis (R), 2+ dorsalis pedis (L) Gastrointestinal: soft, non-tender, no palpable pulsatile masses Extremities: 1+ bilateral lower extremity edema Neurologic/Psych: awake, alert, disoriented to time Skin: intact, normal color, warm/dry Lymphatic: no anterior cervical estela Core Measures ACS in differential dx? Yes ASA ordered for poss ACS? No-ACS ruled out Severe Sepsis Present: No Septic Shock Present: No (ACOSTA SIMMONS) Progress Differential Diagnosis: AMI, bronchitis, CHF, COPD, pericarditis, pulmonary embolism, pneumonia, unstable angina, electrolyte abnormality Plan of Care: Orders Procedure Date/time Status LACTIC ACID 12/15 1509 Active Admit to inpatient 12/15 1324 Active Patient Data 12/15 1317 Active URINALYSIS 12/15 1214 Active PARTIAL THROMBOPLASTIN TIME 12/15 1210 Complete PROTHROMBIN TIME 12/15 1210 Complete MIXED VENOUS BLOOD GAS (GEN) 12/15 1209 Complete Telemetry/Pull Over Machine Operator 12/15 1209 Active BLOOD CULTURE 12/15 1209 Active TROPONIN LEVEL 12/15 1209 Complete MAGNESIUM 12/15 1209 Complete LACTIC ACID 12/15 1209 Complete COMPREHENSIVE METABOLIC PANEL 12/15 1209 Complete CBC WITHOUT DIFFERENTIAL 12/15 1209 Complete B-TYPE NATRIURETIC PEP (BNP) 12/15 1209 Complete ACETONE 12/15 1209 Complete FingerStick- Glucose 12/15 1208 Active Intake & Output 12/15 1158 Active EKG 12/15 1156 Active Laboratory Tests 12/15/16 1220: Bicarbonate Actual 26, Mixed VBG pH 7.63 H, Mixed VBG pCO2 16 L, Mixed VBG O2 Saturation 44, P-50 (Temp Corrected) 99.8, Carboxyhemoglobin 1.1 L, O2 Concentration % RA, Temperature 99.8, O2 Delivery Method RA, Anion Gap 15, Estimated GFR > 60, BUN/Creatinine Ratio 31.3 H, Glucose 295 H, Lactic Acid 2.6 H, Calcium 9.6, Magnesium 1.5 L, Total Bilirubin 2.1 H, AST 16, ALT 25, Alkaline Phosphatase 47, Troponin I < 0.01, Ilf-K-Cnhdttmytck Pept 2430 H, Total Protein 7.0, Albumin 3.6, Globulin 3.4, Albumin/Globulin Ratio 1.1, PT 15.6 H, INR 1.49 H, APTT 28, CBC w Diff MAN DIFF ORDERED, RBC 4.26, MCV 78.1 L, MCH 25.6 L, RDW 17.0 H, MPV 8.1, Gran % 83.6 H, Lymphocytes % 7.1 L, Monocytes % 9.1, Eosinophils % 0.1, Basophils % 0.1, Absolute Granulocytes 8.5 H, Absolute Lymphocytes 0.7 L, Absolute Monocytes 0.9 H, Absolute Eosinophils 0, Absolute Basophils 0, Platelet Estimate ADEQUATE, Poikilocytosis 2+, Anisocytosis 1+, PUBS MCHC 32.8 L, Phlebotomy Draw Site AC, Acetone Level NEGATIVE Microbiology 12/15 1320 BLOOD: Blood Culture - RECD 12/15 1220 BLOOD: Blood Culture - RECD 12/15/2016 12:48:07 PM: Heart rate improved from 130s to 140s to the 1 teens to 120s after 15 mg of IV Cardizem. Cardizem drip ordered. Discussed with Dr. Tyson. 12/15/2016 1:10:11 PM: Heart rate returning to the 140s. Additional bolus of Cardizem ordered, Cardizem drip ordered. Discussed with Dr. Patterson: Will consult on patient Dr. Tamayo discussed patient with Dr. Garrido for admission (ACOSTA SIMMONS) Diagnostic Imaging: Viewed by Me: Radiology Read. Discussed w/RAD: Radiology Read. Radiology Impression: PATIENT: ROSARIO CLAYTON PRESENT AGE: 66 PATIENT ACCOUNT NO: [id number] : 49 LOCATION: [facility] ORDERING PHYSICIAN: ACOSTA GRIFFITHS SERVICE DATE: 12/15/16-1936 EXAM TYPE: RAD - XRY-PORTABLE CHEST XRAY EXAMINATION: XR PORTABLE CHEST CLINICAL INFORMATION: Dyspnea. Atrial fibrillation. COMPARISON: Unremarkable chest exam. Chest 2016. TECHNIQUE: Portable AP view of the chest was obtained. FINDINGS: Both lungs are fairly well-expanded and clear of acute process. The heart size and pulmonary vascularity is normal. There are dual pacer electrodes in right ventricle. No gross bony abnormality seen. IMPRESSION: Unremarkable chest exam. DICTATED BY: SONIA STROUD MD DATE/TIME DICTATED:12/15/161243 TRANSITIONAL CARE LIAISON :JULIO DATE/TIME TRANSCRIBED:12/15/161243 CONFIDENTIAL, DO NOT COPY WITHOUT APPROPRIATE AUTHORIZATION. <Electronically signed in Other Vendor System> SIGNED BY: SONIA STROUD MD 12/15/16 1252 Initial ED EKG: atrial fibrillation with rapid ventricular rate in the 140s, nonspecific ST/T-wave abnormalities Prior EKG: changed (nonspecific st/t wave changes) Rhythm Strip: atrial fibrillation (with RVR) (ACOSTA SIMMONS) Departure Departure Disposition: STILL A PATIENT Condition: Stable Clinical Impression Primary Impression: Atrial fibrillation with RVR Secondary Impressions: Elevated lactic acid level, Hypomagnesemia Referrals: GABRIELA BHAT MD (PCP/Family) Departure Forms: Customer Survey General Discharge Information (ACOSTA SIMMONS) Admission Note Spoke With: JESSICA REYES,HERO Documentation of Exam: Documentation of any treatments & extenuating circumstances including Concerns Regarding Discharge (functional status, medication knowledge or non-compliance, living conditions, etc.) that warrant an admission rather than observation: [ TELE MONITORING WITH SERIAL Enzymes. Cardiology consultation, ZOFIA ACOSTA] PA/TANKAGE GRINDER Co-Sign Statement Statement: ED Attending supervision documentation- [X] I saw and evaluated the patient. I have also reviewed all the pertinent lab results and diagnostic results. I agree with the findings and the plan of care as documented in the PA's/TANKAGE GRINDER's documentation. [X] I have reviewed the ED Record and agree with the PA's/TANKAGE GRINDER's documentation. [] Additions or exceptions (if any) to the PAs/TANKAGE GRINDER's note and plan are summarized below: [] (MARKOS REYES,VANESSA Henry) Critical Care Note Critical Care Note Critical Care Time: 30-74 min (ACOSTA SIMMONS) Critical Care Note Critical Care Note Critical Care Time: 30-74 min (ACOSTA SIMMONS)
[2016-12-15] MEDS ORDERED: LEVOTHYROXINE25 MCG PO (12:12)
[2016-12-15] MEDS ORDERED: FERRALET 90 TA1 EACH PO (12:13)
[2016-12-15] MEDS ORDERED: LANTUS SOL100 UNIT/1 SC (12:14)
--- NOTE | 2016-12-15 12:20 | NUR ---
LABS SENT, 1ST SET BC SENT. RT CALLED TO STUDENT SERVICES COORDINATOR VBG.
--- NOTE | 2016-12-15 12:29 | NUR ---
PT MEDICATED WITH 15 MG CARDIZEM IV. PCXR AT BEDSIDE
[2016-12-15 12:34] LABS: ABSOLUTE BASOPHIL COUNT 0 /CUMM (0.0-0.2); ABSOLUTE EOSINOPHIL COUNT 0 /CUMM (0.0-0.7); ABSOLUTE GRANULOCYTE CT 8.5 /CUMM (1.4-6.5); ABSOLUTE LYMPH COUNT 0.7 /CUMM (1.2-3.4); ABSOLUTE MONOCYTE COUNT 0.9 /CUMM (0.10-0.60); BASOPHIL % 0.1 % (0.0-2.0); EOSINOPHIL % 0.1 % (0-5); GRANULOCYTE % 83.6 % (42.2-75.2); HEMATOCRIT 33.2 % (37-47); MEAN CORPUSCULAR HGB 25.6 PG (27.0-31.0); MEAN CORPUSCULAR HGB CONC 32.8 G/DL (33.0-37.0); MEAN CORPUSCULAR VOLUME 78.1 FL (81.0-99.0); MEAN PLATELET VOLUME 8.1 FL (7.4-10.4); PLATELET COUNT 279 /CUMM (130-400); RED BLOOD CELL CT 4.26 /CUMM (4.20-5.40); WHITE BLOOD CELL COUNT 10.1 /CUMM (4.8-10.8)
[2016-12-15 12:43] LABS: PT 15.6 SEC (9.4-12.5); PTT 28 SEC (25-37)
--- NOTE | 2016-12-15 12:52 | RADIOLOGY REPORT ---
EXAMINATION: XR PORTABLE CHEST CLINICAL INFORMATION: Dyspnea. Atrial fibrillation. COMPARISON: Unremarkable chest exam. Chest 09/19/2016. TECHNIQUE: Portable AP view of the chest was obtained. FINDINGS: Both lungs are fairly well-expanded and clear of acute process. The heart size and pulmonary vascularity is normal. There are dual pacer electrodes in right ventricle. No gross bony abnormality seen. IMPRESSION: Unremarkable chest exam.
--- NOTE | 2016-12-15 12:54 | NUR ---
CARDIZEM DRIP STARTED AT 5/HR.
--- NOTE | 2016-12-15 12:55 | NUR ---
CRITICAL TEST RESULTS [id number] ROSARIO CLAYTON 66 F TESTS AND RESULTS: LACTIC ACID 2.6 Results received and read back by: HARSHAD PÉREZ Results received date and time: 12/15/16 1255 The following provider was notified of the results, and read the results back: AYE STRATTON Notified date and time: 12/15/16 at 1255
--- NOTE | 2016-12-15 13:28 | NUR ---
PT MEDICATED WITH 1 MG IV MAGNESIUM, 10 MG IV CARDIZEM, 8 UNITS REG INSULIN SQ. NS INFUSING. URINE SPECIMEN REQUESTED FROM PT
--- NOTE | 2016-12-15 14:11 | NUR ---
HOUSESTAFF AT BEDSIDE FOR EVALUATION
--- NOTE | 2016-12-15 14:21 | NUR ---
BED ASSIGNMENT 174-2
[2016-12-15] MEDS ORDERED: TRAZODONE HCL100 M1 PO (14:36)
--- NOTE | 2016-12-15 14:41 | History & Physical ---
SILAS ALVA MD 12/15/16 1441: General Information and HPI MD Statement: I have seen and personally examined ROSARIO CLAYTON and documented this H&P. The patient is a 66 year old F who presented with a patient stated chief complaint of [palpitation, shortness of breath on exertion and nonproductive cough]. Source of Information: patient Exam Limitations: no limitations History of Present Illness: This is 66-year-old morbidly obese female with past medical history of atrial fibrillation on Coumadin status post pacemaker placement which was recently changed, cardiomyopathy status post AICD, type 2 diabetes, hypertension, hyperlipidemia, peripheral neuropathy, gastric bypass in 2005, hypothyroidism, chronic hypomagnesemia resulting in seizure and polymorphic V. tach presented from home with 2 days history of progressively worsening shortness of breath especially on exertion associated with significant palpitation and non- productive cough. Patient reported being in normal health 2 days prior to admission. She started having palpitation followed by worsening shortness of breath. She had an episode of acute substernal chest pain which lasted for 10 minutes 2 days prior to admission and resolved spontaneously. She denies any recent upper respiratory infection, fever, chills, dizziness, lightheadedness, nausea, vomiting, abdominal pain, productive cough, urinary burning/pain. Allergies/Medications Allergies: Coded Allergies: acetaminophen (09/19/16) oxycodone (From PERCOCET) (UNKNOWN 09/19/16) morphine (HEADACHES, SWEATING 09/19/16) nitroglycerin (MADE MY HEART GO CRAZY 09/19/16) Home Med list Atorvastatin Calcium (Lipitor) 20 MG TABLET 1 TAB PO BEDTIME HIGH CHOLESTEROL (Reported) Diltiazem HCl (Diltiazem ER) 360 MG CAPSULE.ER 1 CAP PO DAILY AFIB (Reported) Escitalopram Oxalate 20 MG TABLET 1 TAB PO DAILY MENTAL HEALTH (Reported) Ezetimibe (Zetia) 10 MG TABLET 1 TAB PO DAILY HIGH CHOLESTEROL (Reported) Furosemide 20 MG TABLET 1 TAB PO DAILY HTN (Reported) Gabapentin (Neurontin) 600 MG TABLET 1 TAB PO BID NEUROPATHY (Reported) Insulin Aspart, Recombinant (Novolog Flexpen) (Unknown Strength) INSULN.PEN ( Unknown Dose) SEE SLIDING SCALE DIABETES (Reported) Insulin Glargine,Hum.rec.anlog (Lantus Solostar) 100 UNIT/ML (3 ML) INSULN.PEN 30 UNIT SC QPM DIABETES (Reported) Iron Carb,Gl/FA/B12/C/Docusate (Ferralet 90 Tablet) 90 MG-1 MG-12 MCG-120 MG-50 MG TABLET 1 TAB PO DAILY SUPPLEMENT (Reported) Levothyroxine Sodium 25 MCG TABLET 1 TAB PO DAILY AC THYROID (Reported) Lisinopril 2.5 MG TABLET 1 TAB PO DAILY HTN (Reported) Magnesium Chloride (Slow-Mag) 71.5 MG TABLET.DR 1 TAB PO TID SUPPLEMENT ( Reported) Meclizine HCl 25 MG TABLET 1 TAB PO TIDPRN PRN DIZZINESS (Reported) Sitagliptin Phos/Metformin HCl (Janumet 50-1,000 MG Tablet) 50 MG-1,000 MG TABLET 1 TAB PO BID DIABETES (Reported) Trazodone HCl 100 MG TABLET 1 TAB PO AT BEDTIME SLEEP (Reported) Warfarin Sodium (Coumadin) 5 MG TABLET 2 TAB PO DAILY AFIB (Reported) MED LIST STATES 2XDAY Compliance With Home Meds: FAIR Past History Travel History Traveled to [place] past 21 day No Medical History Neurological: peripheral neuropathy, TIA EENT: NONE Cardiovascular: AFIB, cardiomyopathy, syncope, ORTHOSTATIC HYPOTENSION LOW MAGNESIUM PACEMAKER/DEFIBRILLATOR Respiratory: asthma Gastrointestinal: GASTRIC BYPASS Hepatic: NONE Renal: UTI Musculoskeletal: osteoarthritis, NEUROPATHY Psychiatric: anxiety Endocrine: hypothyroidism, DIABETES (TYPE II) Blood Disorders: NONE Cancer(s): NONE 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 Home Who Do You Live With? self Services at Home: None Primary Language: Swedish Smoking Status: Never Smoked ETOH Use: denies use Illicit Drug Use: denies illicit drug use Living Will? no Power of Dumper Operator/HCP? yes Name of POA/HCP: sister Functional Ability ADLs Independent: dressing, eating, toileting, bathing. Ambulation: independent, cane, walker, non-ambulatory IADLs Independent: shopping, housework, finances, food prep, telephone, transportation , medication admin. Review of Systems Review of Systems Constitutional: Reports: weakness. Denies: chills, diaphoresis, fever. EENTM: Denies: visual changes. Cardiovascular: Reports: palpitations, peripheral edema. Denies: chest pain, orthopena. Respiratory: Reports: cough, short of breath. Denies: sputum production. GI: Reports: diarrhea. Denies: abdominal pain, nausea, vomiting. Genitourinary: Denies: dysuria, frequency. Musculoskeletal: Reports: back pain. Skin: Denies: lesions, rash. Neurological/Psychological: Denies: anxiety, confusion. Exam & Diagnostic Data Last 24 Hrs of Vital Signs/I&O Vital Signs Date Time Temp Pulse Resp B/P Pulse O2 O2 Flow FiO2 Ox Delivery Rate 12/15 1506 98.7 102 20 132/61 98 Room Air 12/15 1327 99.8 118 20 142/80 12/15 1228 99.8 140 20 140/84 12/15 1201 99.8 140 20 140/84 99 Room Air Physical Exam General Appearance Alert, Oriented X3, Cooperative, No Acute Distress Skin No Rashes HEENT Atraumatic, PERRLA, EOMI, Mucous Membr. moist/pink Neck Supple, No JVD, No thryomegaly Lymphatic Cervical nl Cardiovascular Normal S1, Normal S2, No Murmurs Lungs Clear to Auscultation, Normal Air Movement Abdomen Normal Bowel Sounds, Soft, No Tenderness Neurological Normal Speech, Strength at 5/5 X4 Ext, Normal Tone, Sensation Intact Extremities Normal Pulses, b/l le pitting 1 + edema Vascular Pulses Symmetrical Last 24 Hrs of Labs/Robbie: Laboratory Tests 12/15/16 1220: Bicarbonate Actual 26, Mixed VBG pH 7.63 H, Mixed VBG pCO2 16 L, Mixed VBG O2 Saturation 44, P-50 (Temp Corrected) 99.8, Carboxyhemoglobin 1.1 L, O2 Concentration % RA, Temperature 99.8, O2 Delivery Method RA, Anion Gap 15, Estimated GFR > 60, BUN/Creatinine Ratio 31.3 H, Glucose 295 H, Hemoglobin A1c Pending, Lactic Acid 2.6 H, Calcium 9.6, Magnesium 1.5 L, Total Bilirubin 2.1 H, AST 16, ALT 25, Alkaline Phosphatase 47, Troponin I < 0.01, Yzl-H-Mzapzwywdpm Pept 2430 H, Total Protein 7.0, Albumin 3.6, Globulin 3.4, Albumin/Globulin Ratio 1.1, PT 15.6 H, INR 1.49 H, APTT 28, CBC w Diff MAN DIFF ORDERED, RBC 4.26, MCV 78.1 L, MCH 25.6 L, RDW 17.0 H, MPV 8.1, Gran % 83.6 H, Lymphocytes % 7.1 L, Monocytes % 9.1, Eosinophils % 0.1, Basophils % 0.1, Absolute Granulocytes 8.5 H, Absolute Lymphocytes 0.7 L, Absolute Monocytes 0.9 H, Absolute Eosinophils 0, Absolute Basophils 0, Platelet Estimate ADEQUATE , Poikilocytosis 2+, Anisocytosis 1+, PUBS MCHC 32.8 L, Phlebotomy Draw Site AC , Acetone Level NEGATIVE Microbiology 12/15 1320 BLOOD: Blood Culture - RECD 12/15 1220 BLOOD: Blood Culture - RECD Diagnostic Data EKG Results A. fib at rate of 140, normal axis, no acute ST-T changes, QTC 470 CXR Results Unremarkable Assessment/Plan Assessment: This is 66-year-old morbidly obese female with past medical history of atrial fibrillation on Coumadin status post pacemaker placement which was recently changed, cardiomyopathy status post AICD, type 2 diabetes, hypertension, hyperlipidemia, peripheral neuropathy, gastric bypass in 2005, hypothyroidism, chronic hypomagnesemia resulting in seizure and polymorphic V. tach presented from home with 2 days history of progressively worsening shortness of breath especially on exertion associated with significant palpitation and non- productive cough found to have rapid A. fib. 1. Atrial fibrillation with RVR - Admit to telemetry - Continue Cardizem drip - Rule out underlying coronary event with serial troponin and EKG - Cardiology consult - Start rate control medication Cardizem - Anticoagulation with Coumadin 2. History of cardiomyopathy status post AICD - Monitor on telemetry - Continue Lasix 3. Type 2 diabetes - Check HbA1c - Continue Levemir 15 units twice a day - NovoLog sliding scale 4. Hyperlipidemia - Continue statin and ZETIA 5. Hypomagnesemia - Replete magnesium with 1 g IV - Continue oral magnesium repletion 6. Peripheral neuropathy Continue gabapentin 7. Hypertension Continue Cardizem and lisinopril 8. Hypothyroidism Continue levothyroxine 9. Depression/insomnia Continue Lexapro and trazodone 100 mg at bedtime 9. DVT prophylaxis On Coumadin 10. Full code As Ranked By This Provider Problem List: 1. Atrial fibrillation with RVR 2. HTN (hypertension) 3. Hypomagnesemia syndrome 4. Diabetes Core Measures/Miscellaneous Acute Coronary Syndrome ACS Diagnosis: No Cerebrovascular Accident CVA/TIA Diagnosis: No Congestive Heart Failure CHF Diagnosis: No Venous Thromboembolism VTE Risk Factors: Age > 40 No [facility] VTE prophylaxis d/t: No contraindications No VTE Pharm Prophylaxis d/t: No contraindications VTE Diagnosis: No VTE Type: NONE VTE Confirmed by (Test): NONE Severe Sepsis Severe Sepsis Present: No Septic Shock Septic Shock Present: No Miscellaneous Documentation Attending Case Discussed With: Dr. Garrido Primary Care Physician: GABRIELA BHAT MD Patient sees these Specialists Dilcia Patterson MD cardiology Level of Patient Care: Telemetry Consults Needed: Consulting Specialty: Cardiology Consulting Physician: Dilcia Patterson MD Reason for Consult: AFIB Resident Review Statement Resident Statement: examined this patient, reviewed EMR data (avail), reviewed images, amended to note Other Findings: SEE VASILE HERO GARRIDO 12/15/16 1447: Attending MD Review Statement Attending Statement Attending MD Statement: examined this patient, discuss w/resident/PA/NUTRITION TECH, agreed w/resident/PA/NUTRITION TECH, discussed with family, reviewed EMR data (avail), discussed with nursing, discussed with case mgmt, reviewed images, amended to note Attending Assessment/Plan: 66 o/f with pmh as above comes with sob and afib with RVR admitted to telemetry. Patient started on cardizem drip in ER. HR still in 100s. elevated BNP. Patient continue with drip and titrate as needed. Cardiology consulted in ER and recommendations followed. Replace Mg, INR on coumadin, c/w coumadin. serial cardiac enzymes. f/u cardio. fgi/dvt prophyalxis full code.
--- NOTE | 2016-12-15 15:07 | Cons- Cardiology ---
General Information and HPI Consulting Request Date of Consult: 12/15/16 Requested By: HARLEY REYES,GUILLE Reason for Consult: Atrial fibrillation with elevated rate; shortness of breath Source of Information: patient, old records Exam Limitations: no limitations History of Present Illness: This is 66-year-old obese female with past medical history of atrial fibrillation on Coumadin status post AICD placement which was recently changed, cardiomyopathy status post AICD with a now normalized LVEF, type 2 diabetes, hypertension, hyperlipidemia, peripheral neuropathy, gastric bypass in 2005, hypothyroidism, chronic hypomagnesemia resulting in seizure and polymorphic V. tach presented from home with 2 days history of progressively worsening shortness of breath especially on exertion associated with significant palpitation and non-productive cough. Patient reported being in normal health 2 days prior to admission. She started having palpitation followed by worsening shortness of breath. She had an episode of acute epigastric / substernal chest pain which lasted for 10 minutes and which, by history, was atypical for cardiac symptoms. At the moment, she is symptoms free. In the ER, her ventricular rate was noted to be elevated. Allergies/Medications Allergies: Coded Allergies: acetaminophen (09/19/16) oxycodone (From PERCOCET) (UNKNOWN 09/19/16) morphine (HEADACHES, SWEATING 09/19/16) nitroglycerin (MADE MY HEART GO CRAZY 09/19/16) Home Med List: Atorvastatin Calcium (Lipitor) 20 MG TABLET 1 TAB PO BEDTIME HIGH CHOLESTEROL (Reported) Diltiazem HCl (Diltiazem ER) 360 MG CAPSULE.ER 1 CAP PO DAILY AFIB (Reported) Escitalopram Oxalate 20 MG TABLET 1 TAB PO DAILY MENTAL HEALTH (Reported) Ezetimibe (Zetia) 10 MG TABLET 1 TAB PO DAILY HIGH CHOLESTEROL (Reported) Furosemide 20 MG TABLET 1 TAB PO DAILY HTN (Reported) Gabapentin (Neurontin) 600 MG TABLET 1 TAB PO BID NEUROPATHY (Reported) Insulin Aspart, Recombinant (Novolog Flexpen) (Unknown Strength) INSULN.PEN ( Unknown Dose) SEE SLIDING SCALE DIABETES (Reported) Insulin Glargine,Hum.rec.anlog (Lantus Solostar) 100 UNIT/ML (3 ML) INSULN.PEN 30 UNIT SC QPM DIABETES (Reported) Iron Carb,Gl/FA/B12/C/Docusate (Ferralet 90 Tablet) 90 MG-1 MG-12 MCG-120 MG-50 MG TABLET 1 TAB PO DAILY SUPPLEMENT (Reported) Levothyroxine Sodium 25 MCG TABLET 1 TAB PO DAILY AC THYROID (Reported) Lisinopril 2.5 MG TABLET 1 TAB PO DAILY HTN (Reported) Magnesium Chloride (Slow-Mag) 71.5 MG TABLET.DR 1 TAB PO TID SUPPLEMENT ( Reported) Meclizine HCl 25 MG TABLET 1 TAB PO TIDPRN PRN DIZZINESS (Reported) Sitagliptin Phos/Metformin HCl (Janumet 50-1,000 MG Tablet) 50 MG-1,000 MG TABLET 1 TAB PO BID DIABETES (Reported) Trazodone HCl 100 MG TABLET 1 TAB PO AT BEDTIME SLEEP (Reported) Warfarin Sodium (Coumadin) 5 MG TABLET 2 TAB PO DAILY AFIB (Reported) MED LIST STATES 2XDAY Current Medications: Current Medications Sig/Gary Start time Last Medication Dose Route Stop Time Status Admin Acetaminophen 650 MG Q6P PRN 12/15 1445 AC PO Atorvastatin Calcium 20 MG AT BEDTIME 12/15 2200 AC PO Diltiazem HCl 0 .STK-MED ONE 12/15 1304 DC .ROUTE Diltiazem HCl 10 MG ONCE ONE 12/15 1300 DC 12/15 IV PUSH 12/15 1301 1327 Diltiazem HCl 0 .STK-MED ONE 12/15 1249 DC IV Diltiazem HCl 125 MG Q24H 12/15 1245 12/15 Sodium Chloride 100 ML IV 1255 Diltiazem HCl 0 .STK-MED ONE 12/15 1229 DC .ROUTE Diltiazem HCl 15 MG ONCE ONE 12/15 1215 DC 12/15 IV PUSH 12/15 1216 1228 Escitalopram Oxalate 20 MG DAILY 12/16 1000 AC PO Ezetimibe 10 MG DAILY 12/15 1431 AC 12/15 PO 1454 Furosemide 20 MG DAILY 12/16 1000 AC PO Gabapentin 0 .STK-MED ONE 12/15 1453 DC PO Gabapentin 600 MG BID 12/15 1433 AC 12/15 PO 1454 Insulin Aspart 0 TIDAC 12/15 1700 AC SC Insulin Detemir 15 UNITS BID 12/15 2200 AC SC Insulin Human Regular 8 UNITS ONCE ONE 12/15 1315 DC 12/15 SC 12/15 1316 1327 Levothyroxine Sodium 0.025 MG DAILY AC 04/17 0700 AC PO Lisinopril 2.5 MG DAILY 12/16 1000 AC PO Magnesium Chloride 64 MG TID 12/15 1600 AC PO Magnesium Sulfate 1 GM ONCE ONE 12/15 1300 AC 12/15 Dextrose/Water 100 ML IV 12/15 1659 1327 Patient Medication 1 UNIT ONE NR 12/15 1500 [facility] ED 12/15 1530 Patient Medication 1 UNIT ONE NR 12/15 1500 [facility] ED 12/15 1530 Patient Medication 1 UNIT ONE NR 12/15 1500 [facility] ED 12/15 1530 Patient Medication 1 UNIT ONE NR 12/15 1500 [facility] ED 12/15 1530 Sodium Chloride 1,000 ML BOLUS ONE 12/15 1300 DC 12/15 IV 12/15 1359 1327 Past History Travel History Traveled to [facility] past 21 day No Medical History Neurological: peripheral neuropathy, TIA EENT: NONE Cardiovascular: AFIB, cardiomyopathy, syncope, ORTHOSTATIC HYPOTENSION LOW MAGNESIUM PACEMAKER/DEFIBRILLATOR Respiratory: asthma Gastrointestinal: GASTRIC BYPASS Hepatic: NONE Renal: UTI Musculoskeletal: osteoarthritis, NEUROPATHY Psychiatric: anxiety Endocrine: hypothyroidism, DIABETES (TYPE II) Blood Disorders: NONE Cancer(s): NONE GLASS BENDER/Reproductive: NONE Surgical History Surgical History: GASTRIC BYPASS PACEMAKER Family History Relations & Conditions If Any: Relation not specified for: *No pertinent family history Psychosocial History Who Do You Live With? self Services at Home: None Primary Language: Luxembourgish ETOH Use: denies use Illicit Drug Use: denies illicit drug use Functional Ability ADLs Independent: dressing, eating, toileting, bathing. Ambulation: independent, cane, walker, non-ambulatory IADLs Independent: shopping, housework, finances, food prep, telephone, transportation , medication admin. ECHO Results (as available) Report: CONCLUSIONS 1. Minimal aortic sclerosis is present in a tricuspid aortic valve with no valvular stenosis or insufficiency. 2. Mitral leaflet thickening is present with mild mitral insufficiency and mild left atrial dilatation. 3. A physiologic pericardial effusion is present. 4. The left ventricular chamber size is normal with an ejection fraction of greater than 55% and no resting wall motion abnormalities. 5. The right heart structures are grossly normal. Mild tricuspid insufficiency is present with no evidence of pulmonary hypertension. 6. Pacemaker / AICD wires are present in the right heart chambers. 7. No definite embolic sources are identified on this study. If cllinically indicated, a SAKSHI would better exclude potential embolic sources. Exam & Diagnostic Data Vital Signs and I&O Vital Signs Date Time Temp Pulse Resp B/P Pulse O2 O2 Flow FiO2 Ox Delivery Rate 12/15 1327 99.8 118 20 142/80 12/15 1228 99.8 140 20 140/84 12/15 1201 99.8 140 20 140/84 99 Room Air Physical Exam: General Appearance Alert, Oriented X3, Cooperative, No Acute Distress Skin No Rashes HEENT Atraumatic, PERRLA, EOMI, Mucous Membr. moist/pink Neck Supple, No JVD, No thryomegaly Lymphatic Cervical nl Cardiovascular Normal S1, Normal S2, 1/6 systolic murmur Lungs Clear to Auscultation, Normal Air Movement Abdomen Normal Bowel Sounds, Soft, No Tenderness Neurological Normal Speech, Strength at 5/5 X4 Ext, Normal Tone, Sensation Intact Extremities Normal Pulses, b/l le pitting 1 + edema Vascular Pulses Symmetrical Labs/Robbie Results: Laboratory Tests 12/15 1220 Blood Gas Bicarbonate Actual (22 - 26 MEQ/L) 26 Mixed VBG pH (7.31 - 7.41 PH) 7.63 H Mixed VBG pCO2 (41 - 51 TORR) 16 L Mixed VBG O2 Saturation (35 - 45 TORR) 44 P-50 (Temp Corrected) 99.8 Carboxyhemoglobin (1.5 - 5.0 %) 1.1 L O2 Concentration % RA Temperature (97.0 - 100.0 FARH) 99.8 O2 Delivery Method RA Chemistry Sodium (137 - 145 mmol/L) 134 L Potassium (3.5 - 5.1 mmol/L) 4.0 Chloride (98 - 107 mmol/L) 101 Carbon Dioxide (22 - 30 mmol/L) 18 L Anion Gap (5 - 16) 15 BUN (7 - 17 mg/dL) 25 H Creatinine (0.5 - 1.0 mg/dL) 0.8 Estimated GFR (>60 ml/min) > 60 BUN/Creatinine Ratio (7 - 25 %) 31.3 H Glucose (65 - 99 mg/dL) 295 H Hemoglobin A1c (4.2 - 5.8 %) Pending Lactic Acid (0.7 - 2.1 mmol/L) 2.6 H Calcium (8.4 - 10.2 mg/dL) 9.6 Magnesium (1.6 - 2.3 mg/dL) 1.5 L Total Bilirubin (0.2 - 1.3 mg/dL) 2.1 H AST (14 - 36 U/L) 16 ALT (9 - 52 U/L) 25 Alkaline Phosphatase (<127 U/L) 47 Troponin I (< 0.11 ng/ml) < 0.01 Ozu-[id number]-Yoovydnxbca Pept (<125 pg/mL) 2430 H Total Protein (6.3 - 8.2 g/dL) 7.0 Albumin (3.5 - 5.0 g/dL) 3.6 Globulin (1.9 - 4.2 gm/dL) 3.4 Albumin/Globulin Ratio (1.1 - 2.2 %) 1.1 Coagulation PT (9.4 - 12.5 SEC) 15.6 H INR (0.90 - 1.19) 1.49 H APTT (25 - 37 SEC) 28 Hematology CBC w Diff MAN DIFF ORDERED WBC (4.8 - 10.8 /CUMM) 10.1 RBC (4.20 - 5.40 /CUMM) 4.26 Hgb (12.0 - 16.0 G/DL) 10.9 L Hct (37 - 47 %) 33.2 L MCV (81.0 - 99.0 FL) 78.1 L MCH (27.0 - 31.0 PG) 25.6 L RDW (11.5 - 14.5 %) 17.0 H Plt Count (130 - 400 /CUMM) 279 MPV (7.4 - 10.4 FL) 8.1 Gran % (42.2 - 75.2 %) 83.6 H Lymphocytes % (20.5 - 51.1 %) 7.1 L Monocytes % (1.7 - 9.3 %) 9.1 Eosinophils % (0 - 5 %) 0.1 Basophils % (0.0 - 2.0 %) 0.1 Absolute Granulocytes (1.4 - 6.5 /CUMM) 8.5 H Absolute Lymphocytes (1.2 - 3.4 /CUMM) 0.7 L Absolute Monocytes (0.10 - 0.60 /CUMM) 0.9 H Absolute Eosinophils (0.0 - 0.7 /CUMM) 0 Absolute Basophils (0.0 - 0.2 /CUMM) 0 Platelet Estimate (ADEQUATE) ADEQUATE Poikilocytosis 2+ Anisocytosis 1+ PUBS MCHC (33.0 - 37.0 G/DL) 32.8 L Miscellaneous Phlebotomy Draw Site AC Toxicology Acetone Level (NEGATIVE) NEGATIVE Diagnostic Data CXR Results FINDINGS: Both lungs are fairly well-expanded and clear of acute process. The heart size and pulmonary vascularity is normal. There are dual pacer electrodes in right ventricle. No gross bony abnormality seen. IMPRESSION: Unremarkable chest exam. Assessment/Plan Assessment/Plan Assessment: 1. Atrial fibrillation with elevated ventricular rate 2. Increasing shortness of breath 3. Hypomagnesemia 4. Diabetes with elevated blood sugar 5. History of polymorphic ventricular tachycardia with indwelling defibrillator 6. Micorcytic anemia 7. Arthritis pending knee replacemtn Recommendations: -Monitor on telemetry -Continue IV cardizem for rate control for now. Transition to po in 24 hours. -Replete magnesium -Check troponin x 2 -ECG in AM -Followup labs in AM Consult Acknowledgment - Thank you for your consult request.
--- NOTE | 2016-12-15 15:17 | NUR ---
PT CARE ASSUMED BY THIS RN AT THIS TIME. PT CONTINUES ON CM A FIB IN THE 100'S. CARDIZEM DRIP CONTINUES AT 5MG/HR. PT OFFERS NO COMPLAINTS, PT REMINDED OF NEED FOR URINE SAMPLE.
--- NOTE | 2016-12-15 16:37 | NUR ---
PT SLEEPING, EASILY AROUSABLE, NO COMPLAINTS. PHARMACY CALLED FOR ATC MEDS.
--- NOTE | 2016-12-15 16:38 | NUR ---
MEAL TRAY ORDERED.
--- NOTE | 2016-12-15 18:09 | NUR ---
REPEAT LACTIC AND TROPONIN SENT TO LAB.
[2016-12-15 18:56] VITALS: BP 121/52
[2016-12-15 23:50] VITALS: BP 138/80
--- NOTE | 2016-12-16 07:21 | PN- Housestaff ---
Subjective Follow-up For: Acute on chronic atrial fibrillation with rapid ventricular response; Palpitations, shortness of breath Complaints: no complaints Tele-Events Since Last Visit: Atrial fibrillation, atrial flutter, heart rate ranging from 91-106, but was 113 when she first came into the floor from the emergency department Subjective: I followed up and examined the patient today. She is resting comfortably in a chair, no distress, no complaints, vitals stable other than telemetry events noted above, no overnight issues otherwise. Review of Systems Constitutional: Reports: no symptoms. Objective Last 24 Hrs of Vital Signs/I&O Vital Signs Date Time Temp Pulse Resp B/P Pulse O2 O2 Flow FiO2 Ox Delivery Rate 12/16 1600 98.2 104 18 118/68 99 Room Air 12/16 0957 102 122/78 12/16 0849 99.0 130 16 136/82 98 Room Air 12/15 2350 100 12 138/80 92 Room Air 12/15 1856 99.3 100 16 121/52 98 Room Air Intake & Output 12/16 1600 12/16 0800 12/16 0000 Intake Total 90 500 Output Total 1 Balance 90 499 Intake, IV 40 20 Intake, Oral 50 480 Output, Other 1 Patient 101.151 kg 101.151 kg Weight Physical Exam General Appearance: Alert, Oriented X3, Cooperative, No Acute Distress Other Physical Findings: Skin No Rashes HEENT Atraumatic, PERRLA, EOMI, Mucous Membr. moist/pink Neck Supple, No JVD, No thryomegaly Lymphatic Cervical nl Cardiovascular Normal S1, Normal S2, No Murmurs Lungs Clear to Auscultation, Normal Air Movement Abdomen Normal Bowel Sounds, Soft, No Tenderness Neurological grossly intact Extremities Normal Pulses, b/l le pitting 1 + edema Vascular Pulses Symmetrical Current Medications: Current Medications Sig/Gary Start time Last Medication Dose Route Stop Time Status Admin Acetaminophen 650 MG Q6P PRN 12/15 1445 AC 12/15 PO 2134 Atorvastatin Calcium 20 MG AT BEDTIME 12/15 2200 AC 12/15 PO 2130 Diltiazem HCl 90 MG Q6 12/16 1530 AC 12/16 PO 1705 Diltiazem HCl 125 MG Q24H 12/15 1245 AC 12/16 Sodium Chloride 100 ML IV 0950 Escitalopram Oxalate 20 MG DAILY 12/16 1000 AC 12/16 PO 0957 Ezetimibe 10 MG DAILY 12/15 1431 AC 12/16 PO 0957 Furosemide 20 MG DAILY 12/16 1000 AC 12/16 PO 0957 Gabapentin 600 MG BID 12/15 1433 AC 12/16 PO 0957 Insulin Aspart 0 TIDAC 12/15 1700 AC 12/16 SC 1653 Insulin Detemir 15 UNITS BID 12/15 2200 AC 12/16 SC 0814 Levothyroxine Sodium 0.025 MG DAILY AC 12/16 0700 AC 12/16 PO 0555 Lisinopril 2.5 MG DAILY 12/16 1000 AC 12/16 PO 0957 Magnesium Chloride 64 MG TID 12/15 1600 AC 12/16 PO 1706 Warfarin Sodium 10 MG COUMADIN 1700 ONE 12/16 1700 DC 12/16 PO 12/16 1701 1706 Warfarin Sodium 10 MG COUMADIN 1700 ONE 12/16 1700 CAN PO 12/16 1701 Last 24 Hrs of Lab/Robbie Results Last 24 Hrs of Labs/Mics: Laboratory Tests 12/16/16 0721: Anion Gap 14, Estimated GFR > 60, BUN/Creatinine Ratio 23.8, Magnesium 1.7, PT 14.7 H, INR 1.40 H 12/16/16 0055: Troponin I < 0.01 Assessment/Plan Assessment: 66-year-old obese female with past medical history of atrial fibrillation on Coumadin status post AICD placed and recently changed, cardiomyopathy, type 2 diabetes, hypertension, hyperlipidemia, peripheral neuropathy, hypothyroidism, gastric bypass 2006 leading to chronically low magnesium, which led to seizures and polymorphic ventricular tachycardia in the past, presented from home with 2 days history of palpitations and shortness of breath upon exertion, is currently being managed in the telemetry unit for the following issues: #Atrial fibrillation with rapid ventricular response Patient was started on Cardizem drip yesterday and overnight her heart rate has been around 91-106, with a rate increased to 130s earlier this morning and her Cardizem drip rate was increased accordingly to 7.5 mL per hour by me. -Cardiology consult appreciated -Cardizem drip to be tapered oral Cardizem per cardiology consult -Continue daily INR check and dosing of Coumadin, will receive 10 mg of Coumadin today -Of note, ACS was ruled out after admission #Hypomagnesemia On admission her magnesium level was 1.5, which was repeated, home dose of magnesium supplement was restarted, and is 1.7 this morning, will monitor #Diabetes mellitus type 2 Have placed patient on diabetic diet, with Accu-Cheks before meals and insulin coverage as inpatient, will hold home medications taken by mouth #History of cardiomyopathy, hypertension, hyperlipidemia, peripheral neuropathy, hypothyroidism, depression/insomnia -We will continue home medications with no changes #Diet: Diabetic diet #DVT prophylaxis: Coumadin #CODE STATUS: Full code Problem List: 1. Atrial fibrillation 2. Hypomagnesemia Pain Ratin Pain Location: - Pain Goal: Pain 4 or less Pain Plan: prn Tomorrow's Labs & Rationales: INR, Mg, BEP to dose coumadin and monitor lytes, and low magnesium Consulting Request: Consulting Specialty: Cardiology Consulting Physician: Dilcia Patterson MD Reason for Consult: AFIB
[2016-12-16 08:19] LABS: PT 14.7 SEC (9.4-12.5)
[2016-12-16 08:49] VITALS: BP 136/82
--- NOTE | 2016-12-16 10:19 | PN- Cardiology ---
Subjective Subjective: Feeling better. No chest pain. No palpitations. No shortness of breath. No diaphoresis. She remains in atrial fibrillation on telemetry with heart rate now under control on IV diltiazem. Objective Vital Signs and I&Os Vital Signs Date Time Temp Pulse Resp B/P Pulse O2 O2 Flow FiO2 Ox Delivery Rate 12/16 0957 102 122/78 12/16 0849 99.0 130 16 136/82 98 Room Air 12/15 2350 100 12 138/80 92 Room Air 12/15 1856 99.3 100 16 121/52 98 Room Air 12/15 1815 98.5 107 18 116/68 98 Room Air Room Air 12/15 1639 98.2 105 20 107/50 96 Room Air 12/15 1506 98.7 102 20 132/61 98 Room Air 12/15 1327 99.8 118 20 142/80 12/15 1228 99.8 140 20 140/84 12/15 1201 99.8 140 20 140/84 99 Room Air Intake & Output 12/16 1600 12/16 0800 12/16 0000 12/15 1600 12/15 0800 12/15 0000 Intake Total 90 500 Output Total 1 Balance 90 499 Intake, IV 40 20 Intake, Oral 50 480 Output, Other 1 Patient 223 lb Weight Physical Exam: Gen: NAD HEENT: normal Lungs: clear to auscultation, normal resp. effort Heart: Irregularly irregular, S1, S2, 1/6 systolic murmur Abdomen: Soft, nontender, no masses Extremities: 1+ edema Neuro: Alert and oriented x 3, cranial nerves intact Current Medications: Current Medications Sig/Gary Start time Last Medication Dose Route Stop Time Status Admin Acetaminophen 650 MG Q6P PRN 12/15 1445 AC 12/15 PO 2134 Atorvastatin Calcium 20 MG AT BEDTIME 12/15 2200 AC 12/15 PO 2130 Diltiazem HCl 0 .STK-MED ONE 12/15 1304 DC .ROUTE Diltiazem HCl 10 MG ONCE ONE 12/15 1300 DC 12/15 IV PUSH 12/15 1301 1327 Diltiazem HCl 0 .STK-MED ONE 12/15 1249 DC IV Diltiazem HCl 125 MG Q24H 12/15 1245 AC 12/16 Sodium Chloride 100 ML IV 0950 Diltiazem HCl 0 .STK-MED ONE 12/15 1229 DC .ROUTE Diltiazem HCl 15 MG ONCE ONE 12/15 1215 DC 12/15 IV PUSH 12/15 1216 1228 Escitalopram Oxalate 20 MG DAILY 12/16 1000 AC 12/16 PO 0957 Ezetimibe 10 MG DAILY 12/15 1431 AC 12/16 PO 0957 Furosemide 20 MG DAILY 12/16 1000 AC 12/16 PO 0957 Gabapentin 0 .STK-MED ONE 12/15 1453 DC PO Gabapentin 600 MG BID 12/15 1433 AC 12/16 PO 0957 Insulin Aspart 0 TIDAC 12/15 1700 AC 12/16 SC 0813 Insulin Detemir 15 UNITS BID 12/15 2200 AC 12/16 SC 0814 Insulin Human Regular 8 UNITS ONCE ONE 12/15 1315 AL 12/15 AL 12/15 1316 1327 Levothyroxine Sodium 0.025 MG DAILY AC 12/16 0700 12/16 PO 0555 Lisinopril 2.5 MG DAILY 12/16 1000 12/16 PO 0957 Magnesium Chloride 64 MG TID 12/15 1600 12/16 PO 0957 Magnesium Sulfate 1 GM ONCE ONE 12/15 1300 DC 12/15 Dextrose/Water 100 ML IV 12/15 1659 1327 Patient Medication 1 UNIT ONE NR 12/15 1545 AL Teaching ED 12/15 1600 Patient Medication 1 UNIT ONE NR 12/15 1500 AL Teaching ED 12/15 1530 Patient Medication 1 UNIT ONE NR 12/15 1500 AL Teaching ED 12/15 1530 Patient Medication 1 UNIT ONE NR 12/15 1500 AL Teaching ED 12/15 1530 Patient Medication 1 UNIT ONE NR 12/15 1500 AL Teaching ED 12/15 1530 Sodium Chloride 1,000 ML BOLUS ONE 12/15 1300 DC 12/15 IV 12/15 1359 1327 Warfarin Sodium 7.5 MG COUMADIN 1700 ONE 12/15 1700 DC 12/15 PO 12/15 1701 1739 Results Last 48 Hrs of Labs/Mics: Laboratory Tests 12/16/16 0721: Anion Gap 14, Estimated GFR > 60, BUN/Creatinine Ratio 23.8, Magnesium 1.7, PT 14.7 H, INR 1.40 H 12/16/16 0055: Troponin I < 0.01 12/15/16 1808: Troponin I < 0.01 12/15/16 1808: Lactic Acid 2.0 12/15/16 1804: Urine Color YEL, Urine Clarity HAZY H, Urine pH 6.0, Ur Specific Warren >= 1.030, Urine Protein 100 H, Urine Ketones NEG, Urine Nitrite POS H, Urine Bilirubin NEG@ICTO, Urine Urobilinogen 1.0, Ur Leukocyte Esterase MOD H, Ur Microscopic SEDIMENT EXAMINED, Urine RBC 1-3, Urine WBC 50-75 H, Ur Epithelial Cells FEW, Urine Bacteria MANY H, Urine Mucus MANY H, Urine Hemoglobin TRACE- INTACT, Urine Glucose NEG 12/15/16 1220: Bicarbonate Actual 26, Mixed VBG pH 7.63 H, Mixed VBG pCO2 16 L, Mixed VBG O2 Saturation 44, P-50 (Temp Corrected) 99.8, Carboxyhemoglobin 1.1 L, O2 Concentration % RA, Temperature 99.8, O2 Delivery Method RA, Anion Gap 15, Estimated GFR > 60, BUN/Creatinine Ratio 31.3 H, Glucose 295 H, Hemoglobin A1c Pending, Lactic Acid 2.6 H, Calcium 9.6, Magnesium 1.5 L, Total Bilirubin 2.1 H, AST 16, ALT 25, Alkaline Phosphatase 47, Troponin I < 0.01, [id number]-M-[id number] Pept 2430 H, Total Protein 7.0, Albumin 3.6, Globulin 3.4, Albumin/Globulin Ratio 1.1, PT 15.6 H, INR 1.49 H, APTT 28, CBC w Diff MAN DIFF ORDERED, RBC 4.26, MCV 78.1 L, MCH 25.6 L, RDW 17.0 H, MPV 8.1, Gran % 83.6 H, Lymphocytes % 7.1 L, Monocytes % 9.1, Eosinophils % 0.1, Basophils % 0.1, Absolute Granulocytes 8.5 H, Absolute Lymphocytes 0.7 L, Absolute Monocytes 0.9 H, Absolute Eosinophils 0, Absolute Basophils 0, Platelet Estimate ADEQUATE , Poikilocytosis 2+, Anisocytosis 1+, PUBS MCHC 32.8 L, Phlebotomy Draw Site AC , Acetone Level NEGATIVE Assessment/Plan Assessment/Plan Assessment: 1. Atrial fibrillation with elevated ventricular rate 2. Increasing shortness of breath 3. Hypomagnesemia 4. Diabetes with elevated blood sugar 5. History of polymorphic ventricular tachycardia with indwelling defibrillator Recommendations: * Start oral diltiazem, 90 mg by mouth every 6 hours. * Discontinue IV diltiazem one hour after first dose of oral. * Continue to monitor on telemetry. * Continue oral magnesium supplement. * Dose warfarin for INR 2-3 Continue telemetry? Yes
--- NOTE | 2016-12-16 14:42 | PN- Student ---
Subjective Subjective: Overnight Mrs. Adams reports no issues. She stated that she slept very well and did not have any problems breathing. Upon further questioning this morning she reported feeling "a little blue" but otherwise okay. She also stated that she had some slight pains on the medial aspect of both knees, although no swelling or deformity was present. Objective Objective: Vital Signs Date Time Temp Pulse Resp B/P Pulse O2 O2 Flow FiO2 Ox Delivery Rate 12/16 0957 102 122/78 12/16 0849 99.0 130 16 136/82 98 Room Air 12/15 2350 100 12 138/80 92 Room Air 12/15 1856 99.3 100 16 121/52 98 Room Air 12/15 1815 98.5 107 18 116/68 98 Room Air Room Air 12/15 1639 98.2 105 20 107/50 96 Room Air 12/15 1506 98.7 102 20 132/61 98 Room Air Intake & Output 12/16 1600 12/16 0800 12/16 0000 Intake Total 90 500 Output Total 1 Balance 90 499 Intake, IV 40 20 Intake, Oral 50 480 Output, Other 1 Patient 223 lb Weight Telemetry: a-fib/a-flutter 91-106 bpm, GRS- 0.08, no events blood glucose: 194 @1200 12/16/2016 Magnesium- 1.7 UA: protein- 100, positive nitrite, moderate leukocyte esterase, WBC- 50-75, bacteria- many, mucus- many; Blood culture- gram + cocci in pairs and chains Patient appeared to be in no distress and in a good mood despite "feeling a little blue". she was sitting comfortably in her bed during the duration of the exam. She was alert and oriented X 3. PE: HEENT- ROMEO, no swelling or lymphadenopathy noted, membranes moist and pink. Neck- no thyromegaly, trachea is midline CV- S1 and S2 heard, no murmurs or rubs appreciated Chest- vesicular breath sounds heard throughout, good air flow. Abd.- no distention noted, bowel sounds present, abdomen soft and non tender to palpation Skin- well perfused, no lesions or bruises noted Ext.- almost no edema (1+), 4/5 strength bilaterally on lower extremity, 5/5 bilaterally of upper extremity. slight soreness at medial aspect of knee bilaterally to palpation. Results Results: Laboratory Tests 12/16/16 0721: Anion Gap 14, Estimated GFR > 60, BUN/Creatinine Ratio 23.8, Magnesium 1.7, PT 14.7 H, INR 1.40 H 12/16/16 0055: Troponin I < 0.01 12/15/16 180: Troponin I < 0.01 12/15/16 1808: Lactic Acid 2.0 12/15/16 180: Urine Color YEL, Urine Clarity HAZY H, Urine pH 6.0, Ur Specific [place] >= 1.030, Urine Protein 100 H, Urine Ketones NEG, Urine Nitrite POS H, Urine Bilirubin NEG@ICTO, Urine Urobilinogen 1.0, Ur Leukocyte Esterase MOD H, Ur Microscopic SEDIMENT EXAMINED, Urine RBC 1-3, Urine WBC 50-75 H, Ur Epithelial Cells FEW, Urine Bacteria MANY H, Urine Mucus MANY H, Urine Hemoglobin TRACE- INTACT, Urine Glucose NEG 12/15/16 1220: Bicarbonate Actual 26, Mixed VBG pH 7.63 H, Mixed VBG pCO2 16 L, Mixed VBG O2 Saturation 44, P-50 (Temp Corrected) 99.8, Carboxyhemoglobin 1.1 L, O2 Concentration % RA, Temperature 99.8, O2 Delivery Method RA, Anion Gap 15, Estimated GFR > 60, BUN/Creatinine Ratio 31.3 H, Glucose 295 H, Hemoglobin A1c 6.3 H, Lactic Acid 2.6 H, Calcium 9.6, Magnesium 1.5 L, Total Bilirubin 2.1 H, AST 16, ALT 25, Alkaline Phosphatase 47, Troponin I < 0.01, Fqg-V-Xyrdeudlvhm Pept 2430 H, Total Protein 7.0, Albumin 3.6, Globulin 3.4, Albumin/Globulin Ratio 1.1, PT 15.6 H, INR 1.49 H, APTT 28, CBC w Diff MAN DIFF ORDERED, RBC 4.26, MCV 78.1 L, MCH 25.6 L, RDW 17.0 H, MPV 8.1, Gran % 83.6 H, Lymphocytes % 7.1 L, Monocytes % 9.1, Eosinophils % 0.1, Basophils % 0.1, Absolute Granulocytes 8.5 H, Absolute Lymphocytes 0.7 L, Absolute Monocytes 0.9 H, Absolute Eosinophils 0, Absolute Basophils 0, Platelet Estimate ADEQUATE , Poikilocytosis 2+, Anisocytosis 1+, PUBS MCHC 32.8 L, Phlebotomy Draw Site AC , Acetone Level NEGATIVE Microbiology 12/15 1320 BLOOD: Blood Culture - RES GRAM POSITIVE COCCI 12/15 1220 BLOOD: Blood Culture - RES Assessment/Plan Assessment: Current Medications Sig/Gary Start time Last Medication Dose Route Stop Time Status Admin Acetaminophen 650 MG Q6P PRN 12/15 1445 AC 12/15 PO 2134 Atorvastatin Calcium 20 MG AT BEDTIME 12/15 2200 12/15 PO 2130 Diltiazem HCl 125 MG Q24H 12/15 1245 12/16 Sodium Chloride 100 ML IV 0950 Escitalopram Oxalate 20 MG DAILY 12/16 1000 AC 12/16 PO 0957 Ezetimibe 10 MG DAILY 12/15 1431 AC 12/16 PO 0957 Furosemide 20 MG DAILY 12/16 1000 AC 12/16 PO 0957 Gabapentin 0 .STK-MED ONE 12/15 1453 DC PO Gabapentin 600 MG BID 12/15 1433 12/16 PO 0957 Insulin Aspart 0 TIDAC 12/15 1700 12/16 SC 1240 Insulin Detemir 15 UNITS BID 12/15 2200 12/16 SC 0814 Levothyroxine Sodium 0.025 MG DAILY AC 12/16 0700 AC 12/16 PO 0555 Lisinopril 2.5 MG DAILY 12/16 1000 12/16 PO 0957 Magnesium Chloride 64 MG TID 12/15 1600 12/16 PO 0957 Magnesium Sulfate 1 GM ONCE ONE 12/15 1300 [place] 12/15 Dextrose/Water 100 ML IV 12/15 1659 1327 Patient Medication 1 UNIT ONE NR 12/15 1545 [facility] ED 12/15 1600 Patient Medication 1 UNIT ONE NR 12/15 1500 [facility] ED 12/15 1530 Patient Medication 1 UNIT ONE NR 12/15 1500 [facility] ED 12/15 1530 Patient Medication 1 UNIT ONE NR 12/15 1500 [facility] ED 12/15 1530 Patient Medication 1 UNIT ONE NR 12/15 1500 [facility] ED 12/15 1530 Warfarin Sodium 10 MG COUMADIN 1700 ONE 12/16 1700 AC PO 12/16 1701 Warfarin Sodium 7.5 MG COUMADIN 1700 ONE 12/15 1700 DC 12/15 PO 12/15 1701 1739 Mrs. Adams is a 66 year old W female with a PMH of obesity, atrial fibrillation , cadiomyopathy (AICD), DM type 2, HTN, hyperlipidemia, peripheral neuropathy, hypothyroidism. she had gastric bypass in 2005 and has a pacemaker inplant. She also suffers from chronic hypomagnesemia. She was admitted to us with complaints of palpitation, dyspnea, and a non-productive cough. Since being admitted to us she does not complain of palpitation and does not appear to be short of breath. Her latest pulse oximetry was 98 on room air. Her magnesium level is now at 1.7 and she does not seem to be coughing excessively. Plan: Initial treatment plan is to follow her labs and monitor her for any respiratory illnesses. We will control her glucose with insulin and will control her HTN. Will continue to monitor her bacteremia and begin her antibiotic therapy IV. Problem List: 1. bacteremia- broad spectrum antibiotic IV 2. Hypomagnesemia- currently stable at 1.7, repeat labs and monitor. 3. Dyspnea- continue to monitor pulse ox and treat accordingly. 4. Atrial fibrillation- continue on warfarin therapy 10mg daily 5. HTN- currently on cardizem IV 7.5/hr. BP is controlled. 6. DM- continue on insulin therapy and monitor glucose 7. Hyperipidemia- continue therapy with atorvastatin 20mg daily 8. Hypothyroidism- continue therapy with levothyroxine 0.025mg daily
--- NOTE | 2016-12-16 15:12 | PN- Att Addend ---
Attending MD Review Statement Attending Statement Attending MD Statement: examined this patient, discuss w/resident/PA/DEVELOPMENT TEAM LEAD, agreed w/resident/PA/DEVELOPMENT TEAM LEAD, reviewed EMR data (avail), discussed w/nursing, discussed w/ case mgmt Attending Assessment/Plan: Laboratory Tests 12/16/16 0721: Anion Gap 14, Estimated GFR > 60, BUN/Creatinine Ratio 23.8, Magnesium 1.7, PT 14.7 H, INR 1.40 H 12/16/16 0055: Troponin I < 0.01 12/15/16 1808: Troponin I < 0.01 12/15/16 180: Lactic Acid 2.0 12/15/16 180: Urine Color YEL, Urine Clarity HAZY H, Urine pH 6.0, Ur Specific [place] >= 1.030, Urine Protein 100 H, Urine Ketones NEG, Urine Nitrite POS H, Urine Bilirubin NEG@ICTO, Urine Urobilinogen 1.0, Ur Leukocyte Esterase MOD H, Ur Microscopic SEDIMENT EXAMINED, Urine RBC 1-3, Urine WBC 50-75 H, Ur Epithelial Cells FEW, Urine Bacteria MANY H, Urine Mucus MANY H, Urine Hemoglobin TRACE- INTACT, Urine Glucose NEG Vital Signs Date Time Temp Pulse Resp B/P Pulse O2 O2 Flow FiO2 Ox Delivery Rate 12/16 0957 102 122/78 12/16 0849 99.0 130 16 136/82 98 Room Air 12/15 2350 100 12 138/80 92 Room Air 12/15 1856 99.3 100 16 121/52 98 Room Air 12/15 1815 98.5 107 18 116/68 98 Room Air Room Air 12/15 1639 98.2 105 20 107/50 96 Room Air 12/15 1506 98.7 102 20 132/61 98 Room Air Patient seen and examined at bedside. Discussed with patient the care plan. 66 -year-old female with past medical history of atrial fibrillation on Coumadin , diabetes mellitus on insulin, history of gastric bypass in 2006 and AICD placement many years ago and recent replacement of AICD about 6 months ago was admitted with atrial fibrillation with RVR. Her presenting complaints were palpitation and shortness of breath on exertion. Atrial fibrillation with RVR-patient currently is on Cardizem drip and we have increased the rate of Cardizem to 7.5 mg per hour. We will continue to monitor her on telemetry. Her INR today is subtherapeutic at 1.4, we will give her 10 mg of Coumadin tonight. Patient recently had a stress test in October 2006 which was unremarkable. Positive blood cultures with 1 out of 4 bottles growing gram-positive cocci in pairs and chains. Likely contaminant we will follow up on the final blood cultures. Next Discussed with patient the care plan.
[2016-12-16 16:00] VITALS: BP 118/68
[2016-12-16 22:00] VITALS: BP 114/64
--- NOTE | 2016-12-17 06:40 | PN- Housestaff ---
Subjective Follow-up For: Acute on chronic atrial fibrillation with rapid ventricular response; Palpitations, shortness of breath Complaints: no complaints Tele-Events Since Last Visit: Atrial fibrillation, heart rate ranging from 77-98. Subjective: I followed him and examined the patient today. She is sitting by the side of her bed, comfortable, not in distress, does not have any complaints, no overnight issues. Telemetry recording as noted above, no overnight event. Review of Systems Constitutional: Reports: no symptoms. Objective Last 24 Hrs of Vital Signs/I&O Vital Signs Date Time Temp Pulse Resp B/P Pulse O2 O2 Flow FiO2 Ox Delivery Rate 12/17 0000 Room Air 12/16 2200 97.8 102 24 114/64 100 Room Air 12/16 1600 98.2 104 18 118/68 99 Room Air 12/16 0957 102 122/78 12/16 0849 99.0 130 16 136/82 98 Room Air Intake & Output 12/17 1600 12/17 0800 12/17 0000 Intake Total 390 350 Output Total Balance 390 350 Intake, IV 40 0 Intake, Oral 350 350 Number 0 0 Bowel Movements Physical Exam General Appearance: Alert, Oriented X3, Cooperative, No Acute Distress Other Physical Findings: Skin No Rashes HEENT Atraumatic, PERRLA, EOMI, Mucous Membr. moist/pink Neck Supple, No JVD, No thryomegaly Lymphatic Cervical nl Cardiovascular Normal S1, Normal S2, No Murmurs Lungs Clear to Auscultation, Normal Air Movement Abdomen Normal Bowel Sounds, Soft, No Tenderness Neurological grossly intact Extremities Normal Pulses, b/l le pitting 1 + edema Vascular Pulses Symmetrical Current Medications: Current Medications Sig/Gary Start time Last Medication Dose Route Stop Time Status Admin Acetaminophen 650 MG Q6P PRN 12/15 1445 AC 12/17 PO 0338 Atorvastatin Calcium 20 MG AT BEDTIME 12/15 2200 AC 12/16 PO 2300 Diltiazem HCl 90 MG Q6 12/16 1530 AC 12/17 PO 0618 Diltiazem HCl 125 MG Q24H 12/15 1245 DC 12/16 Sodium Chloride 100 ML IV 0950 Escitalopram Oxalate 20 MG DAILY 12/16 1000 AC 12/16 PO 0957 Ezetimibe 10 MG DAILY 12/15 1431 AC 12/16 PO 0957 Furosemide 20 MG DAILY 12/16 1000 AC 12/16 PO 0957 Gabapentin 600 MG BID 12/15 1433 AC 12/16 PO 2300 Insulin Aspart 0 TIDAC 12/15 1700 AC 12/16 SC 1653 Insulin Detemir 15 UNITS BID 12/15 2200 AC 12/16 SC 2300 Levothyroxine Sodium 0.025 MG DAILY AC 12/16 0700 AC 12/17 PO 0618 Lisinopril 2.5 MG DAILY 12/16 1000 AC 12/16 PO 0957 Magnesium Chloride 64 MG TID 12/15 1600 AC 12/16 PO 2300 Melatonin 5 MG AT BEDTIME 12/17 2200 AC 12/17 PO 0120 Warfarin Sodium 10 MG COUMADIN 1700 ONE 12/16 1700 DC 12/16 PO 12/16 1701 1706 Warfarin Sodium 10 MG COUMADIN 1700 ONE 12/16 1700 CAN PO 12/16 1701 Last 24 Hrs of Lab/Robbie Results Last 24 Hrs of Labs/Mics: Laboratory Tests 12/17/16 0600: Anion Gap 11, Estimated GFR > 60, BUN/Creatinine Ratio 28.8 H, Magnesium 1.6, PT 15.7 H, INR 1.50 H Assessment/Plan Assessment: 66-year-old obese female with past medical history of atrial fibrillation on Coumadin status post AICD placed and recently changed, cardiomyopathy, type 2 diabetes, hypertension, hyperlipidemia, peripheral neuropathy, hypothyroidism, gastric bypass 2005 leading to chronically low magnesium, which led to seizures and polymorphic ventricular tachycardia in the past, presented from home with 2 days history of palpitations and shortness of breath upon exertion, is currently being managed in the telemetry unit for the following issues: #Atrial fibrillation with rapid ventricular response Patient was started on Cardizem drip on Friday12/15/16, converted to by mouth Cardizem yesterday evening, while the drip was still 5:59 AM this morning. Overnight, her heart rate has ranged from 77-98 still in atrial fibrillation. She is asymptomatic -Cardiology consult appreciated -Continue Cardizem 90 mg q6 per Cardiology. Awaiting cardiology's suggestion today. #Subtherapeutic INR -Continue daily INR check and dosing of Coumadin. Of note, she received 10 mg of Coumadin yesterday but her INR is still 1.50, although an increase from 1.40 the other day. Per attending, she will receive 7.5 mg of Coumadin today with a repeat INR tomorrow morning. #Hypomagnesemia On admission her magnesium level was 1.5, which was repeated, home dose of magnesium supplement was restarted, and is 1.6 this morning, will monitor #Diabetes mellitus type 2, uncontrolled Have placed patient on diabetic diet, with Accu-Cheks before meals and insulin coverage as inpatient, will hold home medications taken by mouth for now. This morning's blood sugar was 132. #History of cardiomyopathy, hypertension, hyperlipidemia, peripheral neuropathy, hypothyroidism, depression/insomnia -We will continue home medications with no changes #Diet: Diabetic diet #DVT prophylaxis: Coumadin #CODE STATUS: Full code Problem List: 1. Atrial fibrillation 2. Hypomagnesemia 3. Subtherapeutic international normalized ratio (INR) Pain Ratin Pain Location: - Pain Goal: Remain pain free Pain Plan: prn Tomorrow's Labs & Rationales: INR, BEP, Mg Consulting Request: Consulting Specialty: Cardiology Consulting Physician: Dilcia Patterson MD Reason for Consult: AFIB
[2016-12-17 08:00] VITALS: BP 118/80
[2016-12-17 08:27] LABS: PT 15.7 SEC (9.4-12.5)
--- NOTE | 2016-12-17 08:33 | Patient Discharge Instructions ---
Discharge Instructions General Discharge Information You were seen/treated for: Atrial fibrillation Special Instructions: Please follow-up with your security specialist within 7 days of discharge. Please follow-up with her primary care physician within 7-10 days of discharge. Please return to emergency if symptoms worsen. Diet Continue normal diet: No Recommended Diet: Diabetic Activity Full Activity/No Limits: No Activity Self Limited: Yes Acute Coronary Syndrome Inclusion Criteria At DC or during hospital stay patient has or had the following: ACS DIAGNOSIS No Discharge Core Measures Meds if any: Prescribed or Continued at Discharge Meds if any: NOT Prescribed or Continued at Discharge Congestive Heart Failure Inclusion Criteria At DC or during hospital stay patient has or had the following: CHF DIAGNOSIS No Discharge Core Measures Meds if any: Prescribed or Continued at Discharge Meds if any: NOT Prescribed or Continued at Discharge Cerebrovascular accident Inclusion Criteria At DC or during hospital stay patient has or had the following: CVA/TIA Diagnosis No Discharge Core Measures Meds if any: Prescribed or Continued at Discharge Meds if any: NOT Prescribed or Continued at Discharge Venous thromboembolism Inclusion Criteria VTE Diagnosis No VTE Type NONE VTE Confirmed by (Test) NONE Discharge Core Measures - Per Current guidelines, there needs to be overlap - treatment for the first 5 days of Warfarin therapy. - If discharged on Warfarin prior to 5 days of - overlap therapy, the patient will need to be - assessed for post discharge needs including - *Post discharge parental anticoagulation - *Warfarin and/or parental anticoagulation education - *Follow up date to check INR post discharge At least 5 days overlap therapy as Inpatient No Meds if any: Prescribed or Continued at Discharge Note: Overlap Therapy is Warfarin and Anticoagulant Meds if any: NOT Prescribed or Continued at Discharge
[2016-12-17 09:55] VITALS: BP 112/70
--- NOTE | 2016-12-17 10:48 | PN- Student ---
Subjective Subjective: This morning Mrs. Adams reports feeling much better. She did not have any issues overnight and did not have any pain in her chest or abdomen. She reports no difficulty breathing or going to the rest room. She did report difficulty voiding the last little bit of urine from her bladder during urination but also said that this has been going on for about 5 years. Objective Objective: Vital Signs Date Time Temp Pulse Resp B/P Pulse O2 O2 Flow FiO2 Ox Delivery Rate 12/17 0955 82 112/70 12/17 0800 97.9 90 20 118/80 100 Room Air 12/17 0000 Room Air 12/16 2200 97.8 102 24 114/64 100 Room Air 12/16 1600 98.2 104 18 118/68 99 Room Air Intake & Output 12/17 1600 12/17 0800 12/17 0000 Intake Total 390 350 Output Total Balance 390 350 Intake, IV 40 0 Intake, Oral 350 350 Number 0 0 Bowel Movements Telemetry: atrial fibrillation 77-98 with no events Blood culture: positive for alpha Strep. possible contamination Note: -patient switched to oral cardizem which was just increased to 360mg daily -patient switched from warfarin to eliquis 5mg BID without taper as per Dr. Patterson -she was given 10 mg coumadin today Patient was examined sitting on side of bed. She is alert and oriented x 3 and in a seemingly good psychological state. She is not in any acute distress. PE: HEENT- ROMEO, moist and pink mucus membranes Neck- supple, no thyromegaly, no lymphadenopathy, no JVD Skin- well perfused with no lesions noted CV- S1 and S2 appreciated, no rubs or murmurs heard on auscultation Chest- vesicular sounds heard throughout all lung masters, good air movement noted Abd- no distention noted, soft and nontender to palpation Ext- 4/5 strength bilaterally on LE, slight bluish tent to both feet however sensation was normal bilaterally and cap refill was normal. Results Results: Laboratory Tests 12/17/16 0600: Anion Gap 11, Estimated GFR > 60, BUN/Creatinine Ratio 28.8 H, Magnesium 1.6, PT 15.7 H, INR 1.50 H 12/16/16 0721: Anion Gap 14, Estimated GFR > 60, BUN/Creatinine Ratio 23.8, Magnesium 1.7, PT 14.7 H, INR 1.40 H 12/16/16 0055: Troponin I < 0.01 12/15/16 1808: Troponin I < 0.01 12/15/16 1808: Lactic Acid 2.0 12/15/16 180: Urine Color YEL, Urine Clarity HAZY H, Urine pH 6.0, Ur Specific [place] >= 1.030, Urine Protein 100 H, Urine Ketones NEG, Urine Nitrite POS H, Urine Bilirubin NEG@ICTO, Urine Urobilinogen 1.0, Ur Leukocyte Esterase MOD H, Ur Microscopic SEDIMENT EXAMINED, Urine RBC 1-3, Urine WBC 50-75 H, Ur Epithelial Cells FEW, Urine Bacteria MANY H, Urine Mucus MANY H, Urine Hemoglobin TRACE- INTACT, Urine Glucose NEG 12/15/16 1220: Bicarbonate Actual 26, Mixed VBG pH 7.63 H, Mixed VBG pCO2 16 L, Mixed VBG O2 Saturation 44, P-50 (Temp Corrected) 99.8, Carboxyhemoglobin 1.1 L, O2 Concentration % RA, Temperature 99.8, O2 Delivery Method RA, Anion Gap 15, Estimated GFR > 60, BUN/Creatinine Ratio 31.3 H, Glucose 295 H, Hemoglobin A1c 6.3 H, Lactic Acid 2.6 H, Calcium 9.6, Magnesium 1.5 L, Total Bilirubin 2.1 H, AST 16, ALT 25, Alkaline Phosphatase 47, Troponin I < 0.01, Xhi-O-Rrpvcsobnjo Pept 2430 H, Total Protein 7.0, Albumin 3.6, Globulin 3.4, Albumin/Globulin Ratio 1.1, PT 15.6 H, INR 1.49 H, APTT 28, CBC w Diff MAN DIFF ORDERED, RBC 4.26, MCV 78.1 L, MCH 25.6 L, RDW 17.0 H, MPV 8.1, Gran % 83.6 H, Lymphocytes % 7.1 L, Monocytes % 9.1, Eosinophils % 0.1, Basophils % 0.1, Absolute Granulocytes 8.5 H, Absolute Lymphocytes 0.7 L, Absolute Monocytes 0.9 H, Absolute Eosinophils 0, Absolute Basophils 0, Platelet Estimate ADEQUATE , Poikilocytosis 2+, Anisocytosis 1+, PUBS MCHC 32.8 L, Phlebotomy Draw Site AC , Acetone Level NEGATIVE Microbiology 12/15 1320 BLOOD: Blood Culture - COMP ALPHA STREP 12/15 1220 BLOOD: Blood Culture - RES Assessment/Plan Assessment: Mrs. Adams is a 66 year old W female with a PMH of obesity, atrial fibrillation , cadiomyopathy (AICD), DM type 2, HTN, hyperlipidemia, peripheral neuropathy, hypothyroidism. She had gastric bypass in 2005 and has a pacemaker inplant. She had gastric bypass in 2005 which led to a chronic hypomagnesemia. This in turn led to seizures and polymorphic ventricular tachycardia as a complication. She was admitted to us with complaints of palpitation, dyspnea, and a non-productive cough. Today she seems to be feeling much better. Her blood culture did come back positive with alpha hemolytic streptococci, seems to be a possible contaminated specimen (only 1 bottle positive). Her BP and HR seems to be under control at the moment. Current Medications Sig/Gary Start time Last Medication Dose Route Stop Time Status Admin Acetaminophen 650 MG .STK-MED ONE 12/17 0331 DC PO 12/17 0332 Acetaminophen 650 MG Q6P PRN 12/15 1445 AC 12/17 PO 1102 Apixaban 5 MG BID 12/17 1317 UNVr PO Atorvastatin Calcium 20 MG AT BEDTIME 12/15 2200 AC 12/16 PO 2300 Diltiazem HCl 360 MG DAILY 12/17 1319 UNVr PO Diltiazem HCl 90 MG Q6 12/16 1530 DC 12/17 PO 1105 Diltiazem HCl 125 MG Q24H 12/15 1245 DC 12/16 Sodium Chloride 100 ML IV 0950 Escitalopram Oxalate 20 MG DAILY 12/16 1000 AC 12/17 PO 0952 Ezetimibe 10 MG DAILY 12/15 1431 AC 12/17 PO 0955 Furosemide 20 MG DAILY 12/16 1000 AC 12/17 PO 0952 Gabapentin 600 MG BID 12/15 1433 AC 12/17 PO 0953 Insulin Aspart 0 TIDAC 12/15 1700 AC 12/17 SC 1220 Insulin Detemir 15 UNITS BID 12/15 2200 AC 12/17 SC 0955 Levothyroxine Sodium 0.025 MG DAILY AC 12/16 0700 AC 12/17 PO 0618 Lisinopril 2.5 MG DAILY 12/16 1000 AC 12/17 PO 0955 Magnesium Chloride 64 MG TID 12/15 1600 AC 12/17 PO 0955 Melatonin 5 MG AT BEDTIME 12/17 2200 AC 12/17 PO 0120 Warfarin Sodium 7.5 MG COUMADIN 1700 ONE 12/17 1700 CAN PO 12/17 1701 Warfarin Sodium 10 MG COUMADIN 1700 ONE 12/16 1700 DC 12/16 PO 12/16 170 1706 Warfarin Sodium 10 MG COUMADIN 1700 ONE 12/16 1700 CAN PO 12/16 170 Plan: Mrs. Adams was evaluated today by Dr. Patterson who stated that she was ready for DC by his evaluation. He also gave some reccomendations on medication which were taken and ordered. He said that she should follow up with him in 1 week. Problem List: 1. Atrial fibrillation- switched to eliquis 5mg BID, monitor INR. 2. Hypomagnesemia- currently stable at 1.6, continue oral replacement. 3. Dyspnea- currently 100% on room air. continue to monitor pulse ox and treat accordingly. 4. HTN- Switched to oral cardizem 360 mg daily. BP is controlled. 5. DM- continue on insulin therapy and monitor glucose 6. Hyperipidemia- continue therapy with atorvastatin 20mg daily 7. Hypothyroidism- continue therapy with levothyroxine 0.025mg daily
--- NOTE | 2016-12-17 13:20 | PN- Cardiology ---
Subjective Subjective: Patient reports that she is feeling well. No palpitations. No chest pain. No shortness of breath. No diaphoresis. Ventricular rate is under control on oral diltiazem. Objective Vital Signs and I&Os Vital Signs Date Time Temp Pulse Resp B/P Pulse O2 O2 Flow FiO2 Ox Delivery Rate 12/17 0955 82 112/70 12/17 0800 97.9 90 20 118/80 100 Room Air 12/17 0000 Room Air 12/16 2200 97.8 102 24 114/64 100 Room Air 12/16 1600 98.2 104 18 118/68 99 Room Air Intake & Output 12/17 1600 12/17 0800 12/17 0000 12/16 1600 12/16 0800 12/16 0000 Intake Total 390 350 90 500 Output Total 1 Balance 390 350 90 499 Intake, IV 40 0 40 20 Intake, Oral 350 350 50 480 Number 0 0 Bowel Movements Output, Other 1 Patient 223 lb 223 lb Weight Physical Exam: Gen: NAD HEENT: normal Lungs: clear to auscultation, normal resp. effort Heart: Irregularly irregular, S1, S2, 1/6 systolic murmur Abdomen: Soft, nontender, no masses Extremities: 1+ edema Neuro: Alert and oriented x 3, cranial nerves intact Current Medications: Current Medications Sig/Gary Start time Last Medication Dose Route Stop Time Status Admin Acetaminophen 650 MG .STK-MED ONE 12/17 0331 DC PO 12/17 0332 Acetaminophen 650 MG Q6P PRN 12/15 1445 AC 12/17 PO 1102 Atorvastatin Calcium 20 MG AT BEDTIME 12/15 2200 AC 12/16 PO 2300 Diltiazem HCl 90 MG Q6 12/16 1530 AC 12/17 PO 1105 Diltiazem HCl 125 MG Q24H 12/15 1245 DC 12/16 Sodium Chloride 100 ML IV 0950 Escitalopram Oxalate 20 MG DAILY 12/16 1000 AC 12/17 PO 0952 Ezetimibe 10 MG DAILY 12/15 1431 AC 12/17 PO 0955 Furosemide 20 MG DAILY 12/16 1000 AC 12/17 PO 0952 Gabapentin 600 MG BID 12/15 1433 AC 12/17 PO 0953 Insulin Aspart 0 TIDAC 12/15 1700 AC 12/17 SC 1220 Insulin Detemir 15 UNITS BID 12/15 2200 AC 12/17 SC 0955 Levothyroxine Sodium 0.025 MG DAILY AC 12/16 0700 AC 12/17 PO 0618 Lisinopril 2.5 MG DAILY 12/16 1000 AC 12/17 PO 0955 Magnesium Chloride 64 MG TID 12/15 1600 AC 12/17 PO 0955 Melatonin 5 MG AT BEDTIME 12/17 2200 AC 12/17 PO 0120 Warfarin Sodium 7.5 MG COUMADIN 1700 ONE 12/17 1700 AC PO 12/17 1701 Warfarin Sodium 10 MG COUMADIN 1700 ONE 12/16 1700 DC 12/16 PO 12/16 1701 1706 Warfarin Sodium 10 MG COUMADIN 1700 ONE 12/16 1700 CAN PO 12/16 1701 Results Last 48 Hrs of Labs/Mics: Laboratory Tests 12/17/16 0600: Anion Gap 11, Estimated GFR > 60, BUN/Creatinine Ratio 28.8 H, Magnesium 1.6, PT 15.7 H, INR 1.50 H 12/16/16 0721: Anion Gap 14, Estimated GFR > 60, BUN/Creatinine Ratio 23.8, Magnesium 1.7, PT 14.7 H, INR 1.40 H 12/16/16 0055: Troponin I < 0.01 12/15/16 1808: Troponin I < 0.01 12/15/16 1808: Lactic Acid 2.0 12/15/16 180: Urine Color YEL, Urine Clarity HAZY H, Urine pH 6.0, Ur Specific [place] >= 1.030, Urine Protein 100 H, Urine Ketones NEG, Urine Nitrite POS H, Urine Bilirubin NEG@ICTO, Urine Urobilinogen 1.0, Ur Leukocyte Esterase MOD H, Ur Microscopic SEDIMENT EXAMINED, Urine RBC 1-3, Urine WBC 50-75 H, Ur Epithelial Cells FEW, Urine Bacteria MANY H, Urine Mucus MANY H, Urine Hemoglobin TRACE- INTACT, Urine Glucose NEG Assessment/Plan Assessment/Plan Assessment: 1. Atrial fibrillation with elevated ventricular rate, now under control 2. Increasing shortness of breath 3. Hypomagnesemia 4. Diabetes with elevated blood sugar 5. History of polymorphic ventricular tachycardia with indwelling defibrillator 6. Subtherapeutic INR Recommendations: * Change short-acting diltiazem to Cardizem CD 360 mg daily * I discussed the option of changing from warfarin to Eliquis, and the patient would like to make this change. Since the INR is subtherapeutic, the Eliquis to be started immediately at a dose of 5 mg twice a day. Warfarin may be discontinued. * The patient is okay for discharge from a cardiac standpoint. * Follow up with Dr. Patterson in one week. Continue telemetry? Yes
[2016-12-17] MEDS ORDERED: ELIQUIS5 M1 PO (13:28)
--- NOTE | 2016-12-17 16:44 | PN- Att Addend ---
Attending Addendum Attending Brief Note Laboratory Tests 12/17/16 0600: Anion Gap 11, Estimated GFR > 60, BUN/Creatinine Ratio 28.8 H, Magnesium 1.6, PT 15.7 H, INR 1.50 H Vital Signs Date Time Temp Pulse Resp B/P Pulse O2 O2 Flow FiO2 Ox Delivery Rate 12/17 0955 82 112/70 12/17 0800 97.9 90 20 118/80 100 Room Air 12/17 0000 Room Air 12/16 2200 97.8 102 24 114/64 100 Room Air pt seen and examined at bedside. switched to po cardizem. Started on eliquis due to fluctuations of INR. Plan dc today . Pt staying afebrile. Dc home today. See dc summary for more details. Attending MD Review Statement Attending Statement Attending MD Statement: examined this patient, discuss w/resident/PA/HAND HIDE STRETCHER, agreed w/resident/PA/HAND HIDE STRETCHER, reviewed EMR data (avail), discussed w/nursing, discussed w/ case mgmt
--- NOTE | 2016-12-18 08:01 | Discharge Summary ---
Visit Information Visit Dates Admission Date: 12/15/16 Discharge Date: 12/17/16 Hospital Course Course Attending Physician: YANA REYES,RY Okeefe Primary Care Physician: HOME REYES,GABRIELA Okeefe Consulting Request: Consulting Specialty: Cardiology Consulting Physician: Dilcia Patterson MD Reason for Consult: AFIB Hospital Course: 66-year-old obese female with past medical history of atrial fibrillation on Coumadin status post AICD placed and recently changed, cardiomyopathy, type 2 diabetes, hypertension, hyperlipidemia, peripheral neuropathy, hypothyroidism, gastric bypass 2005 leading to chronically low magnesium, which led to seizures and polymorphic ventricular tachycardia in the past, presented from home with 2 days history of palpitations and shortness of breath upon exertion, was currently being managed in the telemetry unit for the following issues: #Atrial fibrillation with rapid ventricular response Patient was started on Cardizem drip on Friday12/15/16, converted to by mouth Cardizem yesterday evening, while the drip was still 5:59 AM this morning. Overnight, her heart rate has ranged from 77-98 still in atrial fibrillation. She was asymptomatic. Cardiology consult was placed, and she was on Cardizem drip initially, and later discharged with Cardizem 360 mg extended release capsule PO daily. #Subtherapeutic INR initially Initially closed with Coumadin after her INR was within target range, but the patient has been discharged with Apixaban 5 mg PO twice daily. #Hypomagnesemia On admission her magnesium level was 1.5, which was repeated, and later continued on home dose of magnesium supplement. #Diabetes mellitus type 2, uncontrolled Was placed on diabetic diet, with Accu-Cheks before meals and insulin coverage as inpatient, held home medications taken by mouth while in hospital. #History of cardiomyopathy, hypertension, hyperlipidemia, peripheral neuropathy, hypothyroidism, depression/insomnia -Continued home medications with no changes #Diet: Diabetic diet #DVT prophylaxis: Coumadin-->Apixaban #CODE STATUS: Full code Allergies: Coded Allergies: acetaminophen (09/19/16) oxycodone (From PERCOCET) (UNKNOWN 09/19/16) morphine (HEADACHES, SWEATING 09/19/16) nitroglycerin (MADE MY HEART GO CRAZY 09/19/16) Disposition Summary Disposition Principal Diagnosis: Atrial fibrillation with rapid ventricular rate Additional Diagnosis: h/o atrial fibrillation on Coumadin status post AICD placed and recently changed , cardiomyopathy, type 2 diabetes, hypertension, hyperlipidemia, peripheral neuropathy, hypothyroidism, gastric bypass 2005 leading to chronically low magnesium, which led to seizures and polymorphic ventricular tachycardia in the past Discharge Disposition: home health services Discharge Instructions General Discharge Information Code Status: Full Code Patient's Diet: Diabetic diet Patient's Activity: As tolerated Follow-Up Instructions/Appts: Please follow-up with your dispensing optician apprentice within 7 days of discharge. Please follow-up with her primary care physician within 7-10 days of discharge. Please return to emergency if symptoms worsen. DO NOT TAKE WARFARIN (COUMADIN) ANYMORE. YOU HAVE A DIFFERENT BLOOD THINNER PRESCRIBED. Medications at Discharge Discharge Medications: Stop taking the following medications: Warfarin Sodium (Coumadin) 5 MG TABLET ORAL DAILY Continue taking these medications: Diltiazem HCl (Diltiazem ER) 360 MG CAPSULE.ER 1 Capsule ORAL DAILY Comments: Last Taken: 12/17/16 Time: 4:30 PM Atorvastatin Calcium (Lipitor) 20 MG TABLET 1 Tablet ORAL BEDTIME Comments: Last Taken: 12/16/16 Time: 11 PM Insulin Aspart, Recombinant (Novolog Flexpen) (Unknown Strength) INSULN.PEN Unknown Dose SEE SLIDING SCALE Comments: Last Taken: 12/17/16 Time: 12 NOON Lisinopril (Lisinopril) 2.5 MG TABLET 1 Tablet ORAL DAILY Comments: Last Taken: 12/17/16 Time: 10 AM Ezetimibe (Zetia) 10 MG TABLET 1 Tablet ORAL DAILY Comments: Last Taken: 12/17/16 Time: 10 AM Furosemide (Furosemide) 20 MG TABLET 1 Tablet ORAL DAILY Comments: Last Taken: 12/17/16 Time: 10 AM Magnesium Chloride (Slow-Mag) 71.5 MG TABLET.DR 1 Tablet ORAL THREE TIMES DAILY Comments: Last Taken: 12/17/16 Time: 4:30 PM Sitagliptin Phos/Metformin HCl (Janumet 50-1,000 MG Tablet) 50 MG-1,000 MG TABLET 1 Tablet ORAL TWICE DAILY Comments: NOT GIVEN IN HOSPITAL Escitalopram Oxalate (Escitalopram Oxalate) 20 MG TABLET 1 Tablet ORAL DAILY Comments: Last Taken: 12/17/16 Time: 10 AM Meclizine HCl (Meclizine HCl) 25 MG TABLET 1 Tablet ORAL THREE TIMES A DAY NEEDED as needed for DIZZINESS Comments: NOT GIVEN IN HOSPITAL Gabapentin (Neurontin) 600 MG TABLET 1 Tablet ORAL TWICE DAILY Comments: Last Taken: 12/17/16 Time: 10 AM Levothyroxine Sodium (Levothyroxine Sodium) 25 MCG TABLET 1 Tablet ORAL DAILY BEFORE BREAKFAST Comments: Last Taken: 12/17/16 Time: 06:30 AM Iron Carb,Gl/FA/B12/C/Docusate (Ferralet 90 Tablet) 90 MG-1 MG-12 MCG-120 MG-50 MG TABLET 1 Tablet ORAL DAILY Comments: NOT GIVEN IN HOSPITAL Insulin Glargine,Hum.rec.anlog (Lantus Solostar) 100 UNIT/ML (3 ML) INSULN.PEN 30 Unit Inject into fatty tissue Every night Comments: Last Taken: 12/17/16 Time: 10 AM *LEVEMIR 15 UNITS* Trazodone HCl (Trazodone HCl) 100 MG TABLET 1 Tablet ORAL AT BEDTIME Comments: NOT GIVEN IN HOSPITAL Start taking the following new medications: Apixaban (Eliquis) 5 MG TABLET 5 Milligram ORAL TWICE DAILY Days = 28 No Refills Comments: Last Taken: 12/17/16 Time: 3 PM Copies To: HOME REYES,GABRIELA Okeefe Attending MD Review Statement Documenting Attending: RY MILLAN MD Other Findings: please see my separate attending note for more details
== END 2016-12-17 17:15 | DRG 310 ==
LOC: ENRESERVTM → ENRESERVDT → ERH 11:55 → 1NO 13:24 → ERHI 13:24 → 1NO 18:48
PROVIDERS: Internal Medicine; Physician Assistant; ADMIT Student in an Organized Health Care Education/Training Program
DX: I48.91 Unspecified atrial fibrillation (principal); I42.9 Cardiomyopathy, unspecified; E83.42 Hypomagnesemia; E66.01 Morbid (severe) obesity due to excess calories; Z68.32 Body mass index [BMI] 32.0-32.9, adult; E11.9 Type 2 diabetes mellitus without complications; Z79.4 Long term (current) use of insulin
CPT/HCPCS: 1NSP; 36415; 81001; 82436; 87040; 87071; 93005; 93010; 96365; 96366; 96372; 96375; 99291

== ENCOUNTER 2018-05-25 13:39 | Inpatient (IN) | payer OTHER ==
[~2018-05-25] VITALS: Ht 172.7 cm; Wt 105.9 kg
[~2018-05-25 13:39] MED LIST changes: +ELIQUIS5 M1 PO; +FERRALET 90 TA1 EACH PO; +LEVOTHYROXINE25 MCG PO; +LIDODERM1 EACH TOP; +NEURONTIN600 M1 PO; +TRAZODONE HCL100 M1 PO
--- NOTE | 2018-05-25 15:02 | RADIOLOGY REPORT ---
EXAMINATION: XR PORTABLE CHEST CLINICAL INFORMATION: Dizziness and bradycardia. COMPARISON: 12/15/2016 TECHNIQUE: Portable frontal view of the chest was obtained. FINDINGS: Lungs are symmetrically expanded and clear. No pulmonary edema, consolidation or pleural effusion. Cardiac silhouette is normal in size. Left pectoral region cardiac pacemaker/AICD in place with leads extending to the apex of the right ventricle. A right humeral head resurfacing arthroplasty components is noted. IMPRESSION: No acute pulmonary disease.
[2018-05-25 15:51] LABS: ABSOLUTE BASOPHIL COUNT 0.1 /CUMM (0.0-0.2); ABSOLUTE EOSINOPHIL COUNT 0.2 /CUMM (0.0-0.7); ABSOLUTE GRANULOCYTE CT 6.9 /CUMM (1.4-6.5); ABSOLUTE LYMPH COUNT 1.6 /CUMM (1.2-3.4); ABSOLUTE MONOCYTE COUNT 0.6 /CUMM (0.10-0.60); BASOPHIL % 0.6 % (0.0-2.0); GRANULOCYTE % 73.6 % (42.2-75.2); MEAN CORPUSCULAR HGB 26.3 PG (27.0-31.0); MEAN CORPUSCULAR HGB CONC 32.8 G/DL (33.0-37.0); MEAN CORPUSCULAR VOLUME 80.4 FL (81.0-99.0); PLATELET COUNT 311 /CUMM (130-400); RBC DISTRIBUTION WIDTH 17.6 % (11.5-14.5); RED BLOOD CELL CT 3.61 /CUMM (4.20-5.40); WHITE BLOOD CELL COUNT 9.3 /CUMM (4.8-10.8)
--- NOTE | 2018-05-25 15:52 | ED CARDIAC/CP/PALPITATIONS ---
History of Present Illness General Chief Complaint: General Adult Stated Complaint: "SIB DR BENITO FOR EKG S/P BRADYCARDIA DIZZINESS" Source: patient, friend Exam Limitations: no limitations Vital Signs & Intake/Output Vital Signs & Intake/Output Vital Signs Date Time Temp Pulse Resp B/P B/P Pulse O2 O2 Flow FiO2 Mean Ox Delivery Rate 05/25 1757 98.2 58 17 126/56 98 Room Air 05/25 1557 51 18 118/87 95 Room Air 05/25 1518 96 Room Air 05/25 1406 98.1 45 18 101/55 99 Room Air Allergies Coded Allergies: acetaminophen (09/19/16) oxycodone (From PERCOCET) (UNKNOWN 09/19/16) morphine (HEADACHES, SWEATING 09/19/16) nitroglycerin (MADE MY HEART GO CRAZY 09/19/16) Reconcile Medications Apixaban (Eliquis) 5 MG TABLET 5 MG PO BID AFIB Atorvastatin Calcium (Lipitor) 20 MG TABLET 1 TAB PO BEDTIME HIGH CHOLESTEROL (Reported) Diltiazem HCl (Diltiazem ER) 360 MG CAPSULE.ER 1 CAP PO DAILY AFIB (Reported) Escitalopram Oxalate 20 MG TABLET 1 TAB PO DAILY MENTAL HEALTH (Reported) Ezetimibe (Zetia) 10 MG TABLET 1 TAB PO DAILY HIGH CHOLESTEROL (Reported) Furosemide 20 MG TABLET 1 TAB PO DAILY HTN (Reported) Gabapentin (Neurontin) 600 MG TABLET 1 TAB PO BID NEUROPATHY (Reported) Insulin Aspart, Recombinant (Novolog Flexpen) (Unknown Strength) INSULN.PEN ( Unknown Dose) SEE SLIDING SCALE DIABETES (Reported) Insulin Glargine,Hum.rec.anlog (Lantus Solostar) 100 UNIT/ML (3 ML) INSULN.PEN 30 UNIT SC QPM DIABETES (Reported) Iron Carb,Gl/FA/B12/C/Docusate (Ferralet 90 Tablet) 90 MG-1 MG-12 MCG-120 MG-50 MG TABLET 1 TAB PO DAILY SUPPLEMENT (Reported) Levothyroxine Sodium 25 MCG TABLET 1 TAB PO DAILY AC THYROID (Reported) Lidocaine (Lidoderm) 5 % ADH..PATCH 1 PAT TOP DAILY PRN back pain may wear up to 12 hours Lisinopril 2.5 MG TABLET 1 TAB PO DAILY HTN (Reported) Magnesium Chloride (Slow-Mag) 71.5 MG TABLET. 1 TAB PO TID SUPPLEMENT ( Reported) Meclizine HCl 25 MG TABLET 1 TAB PO TIDPRN PRN DIZZINESS (Reported) Sitagliptin Phos/Metformin HCl (Janumet 50-1,000 MG Tablet) 50 MG-1,000 MG TABLET 1 TAB PO BID DIABETES (Reported) Trazodone HCl 100 MG TABLET 1 TAB PO AT BEDTIME SLEEP (Reported) Triage Note: 67 Y/O FEMALE SENT FROM [facility]ION [facility] FOR BRADYCARDIA. PT WAS HAVING MAGNESIUM INFUSION WHEN THEY NOTICED HEART RATE IN 40'S. PT ONLY C/O FEELING "TIRED". IV IN PLACE FROM [facility] Triage Nurses Notes Reviewed? yes HPI: 67 year old female with PMH Afib on Eliquis, Cardiomyopathy, HTN, HLD, DM type 1 , hypothyroidism, gastric bypass 2005, s/p AICD, TIA 1998, hypomagnesemia (with subsequent sz and polymophic ventricular tachycardia) presenting after being sent in from infusion clinic (while receiving Magnesium) with heart rate in 40s. Patient reports she has increased fatigue and dyspnea for about two weeks. She is only up for about 2-3 hours and then needs to sleep for 4 hours. She states she recalls two episodes in the last two weeks of sudden 'shock wave' in her chest while sitting and watching tv. She states it was very brief and painful causing her to grab her chest. She states her AICD was changed out one year ago and last interrogated 3 months ago[address] She sees Dr. Boss for this who recently increased her Metoprolol from 50mg daily to 75mg daily (about 6 weeks ago). She sees Dr. Benito for cardiology and last saw him about 1.5-2 years ago. She states she is suppose to see him this month, but that appointment was pushed back to next month. Denies any fever, chills, n/v, abdominal pain, recent illness. 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 see below for history Family History Hx Contributory? No (Melissa REYES,Jerel Escalante) Review of Systems Review of Systems Constitutional: Reports: malaise, weakness. Denies: chills, diaphoresis, fever. EENTM: Reports: no symptoms. Respiratory: Reports: short of breath. Denies: cough, sputum production, wheezing. Cardiovascular: Reports: chest pain, peripheral edema. Denies: syncope. GI: Reports: no symptoms. Genitourinary: Reports: no symptoms. Musculoskeletal: Reports: no symptoms. Skin: Reports: no symptoms. (Fidelina Garcia MD) Physical Exam Physical Exam General Appearance: well developed/nourished, no apparent distress, alert, awake , obese Head: atraumatic, normal appearance Eyes: Bilateral: normal appearance, PERRL. Neck: normal inspection, supple Respiratory: normal breath sounds, chest non-tender, no respiratory distress, quiet respiration Cardiovascular: bradycardia Peripheral Pulses: 2+ radial (R), 2+ radial (L) Gastrointestinal: normal bowel sounds, soft, non-tender Extremities: pedal edema Neurologic/Psych: awake, alert, oriented x 3, decreased strength to LLE 3/5 compared to RLE 4/5. BUE 5/5 strength Skin: intact, normal color Core Measures ACS in differential dx? No CVA/TIA Diagnosis No Sepsis Present: No Sepsis Focused Exam Completed? No (Fidelina Garcia MD) Progress Differential Diagnosis: AICD low end rate too low; metoprolol increase from 50mg to 75mg adverse effect Plan of Care: Orders Procedure Date/time Status Consistent Carbohydrate 1 05/26 B Active Patient Data 05/25 1929 Active Misc Message 05/25 1923 Active ED Holding Orders 05/25 1923 Active Admit to inpatient 05/25 1923 Active Vital Signs 05/25 1923 Active Code Status 05/25 1923 Active TSH REFLEX 05/25 1405 Complete TROPONIN LEVEL 05/25 1405 Complete MAGNESIUM 05/25 1405 Complete COMPREHENSIVE METABOLIC PANEL 05/25 1405 Complete CBC WITHOUT DIFFERENTIAL 05/25 1405 Complete EKG 05/25 1356 Active Current Medications Sig/Gary Start time Last Medication Dose Stop Time Status Admin Sodium Chloride 1,000 ML .Q5H 05/25 1645 UNVr 05/25 (Normal Saline 0.9%) 05/25 2144 1703 Laboratory Tests 05/25/18 1529: Anion Gap 12, Estimated GFR 30 L, BUN/Creatinine Ratio 22.4, Glucose 169 H, Calcium 8.9, Magnesium 2.4 H, Total Bilirubin 0.2, AST 17, ALT 18, Alkaline Phosphatase 35, Troponin I < 0.01, Total Protein 6.6, Albumin 3.8, Globulin 2.8, Albumin/Globulin Ratio 1.4, TSH &T3 &Free T4 Intrp 2.160, CBC w Diff NO MAN DIFF REQ, RBC 3.61 L, MCV 80.4 L, MCH 26.3 L, MCHC 32.8 L, RDW 17.6 H, MPV 8.0, Gran % 73.6, Lymphocytes % 17.2 L, Monocytes % 6.6, Eosinophils % 2.0, Basophils % 0.6, Absolute Granulocytes 6.9 H, Absolute Lymphocytes 1.6, Absolute Monocytes 0.6, Absolute Eosinophils 0.2, Absolute Basophils 0.1, Lyme Disease Screen Pending 05/25/18 1405: Lyme Disease Antibody Cancelled Initial ED EKG: sinus bradycardia Comments: 15:[address] Boss's office; Dr. Bagley covering. He will send [employer] rep to change rate on AICD to 50bpm. Patient to follow up with Dr. Boss in office. Will complete lab work up and discharge patient home with Cardiology follow up. 16:42 Patient lab work up reveals hyperkalemia at 5.7 K and LESLIE Cr 1.7 (0.9 in October 2017). Given this finding, will hydrate patient and admit. (Jose REYES,Fidelina) Diagnostic Imaging: Discussed w/RAD: Radiology Read. CXR Impression: PATIENT: ROSARIO CLAYTON PRESENT AGE: 67 PATIENT ACCOUNT NO: [id number] : 49 LOCATION: [facility] ORDERING PHYSICIAN: Juan Carlos GRIFFITHS SERVICE DATE: 05/25/18 EXAM TYPE: RAD - XRY-PORTABLE CHEST XRAY EXAMINATION: XR PORTABLE CHEST CLINICAL INFORMATION: Dizziness and bradycardia. COMPARISON: 12/15/2016 TECHNIQUE: Portable frontal view of the chest was obtained. FINDINGS: Lungs are symmetrically expanded and clear. No pulmonary edema, consolidation or pleural effusion. Cardiac silhouette is normal in size. Left pectoral region cardiac pacemaker/AICD in place with leads extending to the apex of the right ventricle. A right humeral head resurfacing arthroplasty components is noted. IMPRESSION: No acute pulmonary disease. DICTATED BY: Reese Dahl MD DATE/TIME DICTATED:05/25/181455 [employer] P[employer] SHE[employer] IRON:JULIO DATE/TIME TRANSCRIBED:05/25/181455 CONFIDENTIAL, DO NOT COPY WITHOUT APPROPRIATE AUTHORIZATION. <Electronically signed in Other Vendor System> SIGNED BY: Reese Dahl MD 05/25/18 1502 (Melissa REYES,Jerel Escalante) Departure Departure Condition: Stable Referrals: Gautam Nguyen MD (PCP/Family) Departure Forms: Customer Survey General Discharge Information (Jose REYES,Fidelina) Departure Disposition: STILL A PATIENT Clinical Impression Primary Impression: LESLIE (acute kidney injury) Secondary Impressions: Bradycardia, Hyperkalemia Admission Note Spoke With: Andres Weston MD Documentation of Exam: Documentation of any treatments & extenuating circumstances including Concerns Regarding Discharge (functional status, medication knowledge or non-compliance, living conditions, etc.) that warrant an admission rather than observation: Patient presented with bradycardia requiring an adjustment of her pacemaker settings. During her evaluation however it was determined that she has an acute kidney injury with hyperkalemia. She is at risk of chest pain, dyspnea, dysrhythmia and syncope. I do not feel she is a good candidate for outpatient management under the circumstances as she could potentially return in worse clinical condition. She would also be at risk of falling with injury. While in the hospital a patient should be treated with gentle IV fluids (the patient has a pacemaker in place and would be at risk of congestive heart failure) along with monitoring of renal functions. Patient's treatment should be adjusted accordingly. If the patient has any further episodes of bradycardia then cardiology consultation should be considered. If patient's renal functions do not improve then renal consult should be considered. I feel this patient will require a multiple day hospitalization. Resident Co-Sign Statement Statement: ED Attending supervision documentation- [X] I saw and evaluated the patient. I have also reviewed all the pertinent lab results and diagnostic results. I agree with the findings and the plan of care as documented in the Resident's documentation. [] I have reviewed the ED Record and agree with the Resident's documentation. [] Additions or exceptions (if any) to the Resident's note and plan are summarized below: [] (Melissa REYES,Jerel Escalante) Critical Care Note Critical Care Note Critical Care Time: 30-74 min (Jerel Torres MD)
--- NOTE | 2018-05-25 20:48 | Cons- Cardiology ---
General Information and HPI Consulting Request Date of Consult: 05/25/18 Requested By: Andres Weston MD Reason for Consult: Bradycardia History of Present Illness: The patient is a 67-year-old female with history of atrial fibrillation, cardiomyopathy, ICD, hypertension, hypothyroidism, chronic hypomagnesemia, and polymorphic ventricular tachycardia who is followed in the office by Dr. Patterson. She was receiving a magnesium infusion when she was noted to be bradycardic in the low 40s. She complains of recent lightheadedness and dizziness. No chest pain. Positive fatigue. No syncope. No orthopnea. No diaphoresis. No nausea or vomiting Allergies/Medications Allergies: Coded Allergies: acetaminophen (09/19/16) oxycodone (From PERCOCET) (UNKNOWN 09/19/16) morphine (HEADACHES, SWEATING 09/19/16) nitroglycerin (MADE MY HEART GO CRAZY 09/19/16) Home Med List: Apixaban (Eliquis) 5 MG TABLET 5 MG PO BID AFIB Atorvastatin Calcium (Lipitor) 20 MG TABLET 1 TAB PO BEDTIME HIGH CHOLESTEROL (Reported) Diltiazem HCl (Diltiazem ER) 360 MG CAPSULE.ER 1 CAP PO DAILY AFIB (Reported) Escitalopram Oxalate 20 MG TABLET 1 TAB PO DAILY MENTAL HEALTH (Reported) Ezetimibe (Zetia) 10 MG TABLET 1 TAB PO DAILY HIGH CHOLESTEROL (Reported) Furosemide 20 MG TABLET 1 TAB PO DAILY HTN (Reported) Gabapentin (Neurontin) 600 MG TABLET 1 TAB PO BID NEUROPATHY (Reported) Insulin Aspart, Recombinant (Novolog Flexpen) (Unknown Strength) INSULN.PEN ( Unknown Dose) SEE SLIDING SCALE DIABETES (Reported) Insulin Glargine,Hum.rec.anlog (Lantus Solostar) 100 UNIT/ML (3 ML) INSULN.PEN 30 UNIT SC QPM DIABETES (Reported) Iron Carb,Gl/FA/B12/C/Docusate (Ferralet 90 Tablet) 90 MG-1 MG-12 MCG-120 MG-50 MG TABLET 1 TAB PO DAILY SUPPLEMENT (Reported) Levothyroxine Sodium 25 MCG TABLET 1 TAB PO DAILY AC THYROID (Reported) Lidocaine (Lidoderm) 5 % ADH..PATCH 1 PAT TOP DAILY PRN back pain may wear up to 12 hours Lisinopril 2.5 MG TABLET 1 TAB PO DAILY HTN (Reported) Magnesium Chloride (Slow-Mag) 71.5 MG TABLET. 1 TAB PO TID SUPPLEMENT ( Reported) Meclizine HCl 25 MG TABLET 1 TAB PO TIDPRN PRN DIZZINESS (Reported) Sitagliptin Phos/Metformin HCl (Janumet 50-1,000 MG Tablet) 50 MG-1,000 MG TABLET 1 TAB PO BID DIABETES (Reported) Trazodone HCl 100 MG TABLET 1 TAB PO AT BEDTIME SLEEP (Reported) Current Medications: Current Medications Sig/Gary Start time Last Medication Dose Route Stop Time Status Admin Sodium Chloride 1,000 ML .Q5H 05/25 1645 AC 05/25 IV 05/25 1424 1703 Past History Travel History Traveled to [place] past 21 day No Medical History Neurological: peripheral neuropathy, TIA EENT: NONE Cardiovascular: AFIB, cardiomyopathy, syncope, ORTHOSTATIC HYPOTENSION LOW MAGNESIUM PACEMAKER/DEFIBRILLATOR Respiratory: asthma Gastrointestinal: GASTRIC BYPASS Hepatic: NONE Renal: UTI Musculoskeletal: osteoarthritis, NEUROPATHY Psychiatric: anxiety Endocrine: hypothyroidism, DIABETES (TYPE II) Blood Disorders: NONE Cancer(s): NONE 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 self Services at Home: None Primary Language: Mongolian Living Will? no Power of [place]/HCP? yes Name of POA/HCP: sister Functional Ability ADLs Independent: dressing, eating, toileting, bathing. Ambulation: independent, cane, walker, non-ambulatory IADLs Independent: shopping, housework, finances, food prep, telephone, transportation , medication admin. ECHO Results (as available) Report: CONCLUSIONS 1. Minimal aortic sclerosis is present in a tricuspid aortic valve with no valvular stenosis or insufficiency. 2. Mitral leaflet thickening is present with mild mitral insufficiency and mild left atrial dilatation. 3. A physiologic pericardial effusion is present. 4. The left ventricular chamber size is normal with an ejection fraction of greater than 55% and no resting wall motion abnormalities. 5. The right heart structures are grossly normal. Mild tricuspid insufficiency is present with no evidence of pulmonary hypertension. 6. Pacemaker / AICD wires are present in the right heart chambers. 7. No definite embolic sources are identified on this study. If cllinically indicated, a SAKSHI would better exclude potential embolic sources. Exam & Diagnostic Data Vital Signs and I&O Vital Signs Date Time Temp Pulse Resp B/P B/P Pulse O2 O2 Flow FiO2 Mean Ox Delivery Rate 05/25 2026 97.7 72 16 122/87 99 Room Air 05/25 1757 98.2 58 17 126/56 98 Room Air 05/25 1557 51 18 118/87 95 Room Air 05/25 1518 96 Room Air 05/25 1406 98.1 45 18 101/55 99 Room Air Intake & Output 05/25 1600 05/25 0800 05/25 0000 05/24 1600 05/24 0805/24 0000 Intake Total 0 Output Total Balance 0 Intake, Oral 0 Patient 212 lb Weight Weight Reported by Patient Measurement Method Physical Exam: Gen: The patient is in no acute distress HEENT: Normal nose, ears, and oropharynx. Pupils equal bilaterally. Conjunctiva normal. Neck: Supple with no JVD, no masses, and no thyromegaly Lungs: Clear to auscultation with normal respiratory effort Heart: RRR, S1, S2, 1/6 systolic murmur. No peripheral edema, 2+ pulses in the lower extremities bilaterally Abdomen: Soft, nontender, no masses. No hepatomegaly. No splenomegaly Extremities: No clubbing or cyanosis. Normal muscle strength in the upper and lower extremities Skin: Normal skin turgor with no skin ulcers or lesions noted. Neuro: Cranial nerves intact. Sensation intact Psych: Alert and oriented x 3 with appropriate affect Labs/Robbie Results: Laboratory Tests 05/25 05/25 1529 1405 Chemistry Sodium (137 - 145 mmol/L) 134 L Potassium (3.5 - 5.1 mmol/L) 5.7 H Chloride (98 - 107 mmol/L) 102 Carbon Dioxide (22 - 30 mmol/L) 20 L Anion Gap (5 - 16) 12 BUN (7 - 17 mg/dL) 38 H Creatinine (0.5 - 1.0 mg/dL) 1.7 H Estimated GFR (>60 ml/min) 30 L BUN/Creatinine Ratio (7 - 25 %) 22.4 Glucose (65 - 99 mg/dL) 169 H Calcium (8.4 - 10.2 mg/dL) 8.9 Magnesium (1.6 - 2.3 mg/dL) 2.4 H Total Bilirubin (0.2 - 1.3 mg/dL) 0.2 AST (14 - 36 U/L) 17 ALT (9 - 52 U/L) 18 Alkaline Phosphatase (<127 U/L) 35 Troponin I (< 0.11 ng/ml) < 0.01 Total Protein (6.3 - 8.2 g/dL) 6.6 Albumin (3.5 - 5.0 g/dL) 3.8 Globulin (1.9 - 4.2 gm/dL) 2.8 Albumin/Globulin Ratio (1.1 - 2.2 %) 1.4 TSH &T3 &Free T4 Intrp (0.270 - 4.20 uIU/mL) 2.160 Hematology CBC w Diff NO MAN DIFF REQ WBC (4.8 - 10.8 /CUMM) 9.3 RBC (4.20 - 5.40 /CUMM) 3.61 L Hgb (12.0 - 16.0 G/DL) 9.5 L Hct (37 - 47 %) 29.0 L MCV (81.0 - 99.0 FL) 80.4 L MCH (27.0 - 31.0 PG) 26.3 L MCHC (33.0 - 37.0 G/DL) 32.8 L RDW (11.5 - 14.5 %) 17.6 H Plt Count (130 - 400 /CUMM) 311 MPV (7.4 - 10.4 FL) 8.0 Gran % (42.2 - 75.2 %) 73.6 Lymphocytes % (20.5 - 51.1 %) 17.2 L Monocytes % (1.7 - 9.3 %) 6.6 Eosinophils % (0 - 5 %) 2.0 Basophils % (0.0 - 2.0 %) 0.6 Absolute Granulocytes (1.4 - 6.5 /CUMM) 6.9 H Absolute Lymphocytes (1.2 - 3.4 /CUMM) 1.6 Absolute Monocytes (0.10 - 0.60 /CUMM) 0.6 Absolute Eosinophils (0.0 - 0.7 /CUMM) 0.2 Absolute Basophils (0.0 - 0.2 /CUMM) 0.1 Serology Lyme Disease Screen Pending Lyme Disease Antibody Cancelled Diagnostic Data EKG Results EKG tracing is independently reviewed, and reveals A-Fib at 45 CXR Results Negative Other Results Echocardiogram 09/20/16: 1. Minimal aortic sclerosis is present with no valvular stenosis or insufficiency. 2. Mitral leaflet thickening is present with minimal to mild mitral insufficiency and moderate left atrial enlargement. 3. There is no pericardial fluid detected. 4. The left ventricular chamber size and systolic function are normal. 5. Mild enlargement of the right heart chambers is present with mild to moderate tricuspid insufficiency, minimal pulmonic insufficiency and no evidence of pulmonary hypertension. 6. Pacemaker wires are noted in the right heart chambers. Assessment/Plan Assessment/Plan Assessment: 1. Chronic atrial fibrillation 2. History of cardiac myopathy 3. Implanted defibrillator 4. Hypertension 5. Chronic hypomagnesemia 6. Slow ventricular rate in the 40s Plan: * Hold diltiazem for now given slow ventricular rate. If ventricular rate becomes elevated, then would restart diltiazem at a reduced dose * ICD was interrogated. The lower rate limit was set at 40. Lower rate limit was apparently increased to 50 * Monitor on telemetry for further bradycardia heart * Continue other cardiac medications Consult Acknowledgment - Thank you for your consult request.
--- NOTE | 2018-05-25 21:30 | History & Physical ---
Mika REYES,Luis 05/25/182108: General Information and HPI MD Statement: I have seen and personally examined ROSARIO CLAYTON and documented this H&P. The patient is a 67 year old F who presented with a patient stated chief complaint of [bradycardia]. Source of Information: patient, family, old records Exam Limitations: no limitations History of Present Illness: Patient is a 67-year-old female was sent from infusion clinic because of bradycardia in range of 40 and feeling of tiredness while receiving the magnesium. PMH-atrial fibrillation on Eliquis, cardiomyopathy status post AICD/pacemaker( left side of the chest),HFpEF 55%, hypertension, hyperlipidemia, type 2 diabetes , hypothyroidism, history of gastric bypass 2005 leading to hypomagnesemia complicated with seizures and polymorphic V. tach, TIA in 1998, osteoarthritis, peripheral neuropathy, depression, insomnia,recurrent falls, hx of Vitamin D deficiency/low vitamin B12, obesity, History of present illness-patient was completely all right in the morning. She ate her breakfast and took her medication went to the infusion center. During the middle of the infusion after 1-1/2 hours she started feeling loomy, become very cranky so they checked her vitals which showed evidence of bradycardia and range of 40. She denies any chest pain, shortness of breath, dizziness, palpitation, sweating. They sent her to the [facility] for further evaluation and management. She recently had AICD and pacemaker placed earlier part of year [address] Boss at [facility]. Around 3 months ago his dose of metoprolol increased from 50 mg to 75 mg/day. His pacemaker has been interrogated around 3 months ago. Around a couple weeks ago she felt an episode of brief thump, on her chest but she denies it does not seems like pacemaker has been fired. ED course-pacemaker was assessed by the [employer] and the rate has been increased to 50 patient denies for any complaint of any discomfort after increasing the heart rate. Allergies-with Percocet and morphine together she had an episode of unconsciousness and she said that she was almost . Allergies/Medications Allergies: Coded Allergies: acetaminophen (09/19/16) oxycodone (From PERCOCET) (UNKNOWN 09/19/16) morphine (HEADACHES, SWEATING 09/19/16) nitroglycerin (MADE MY HEART GO CRAZY 09/19/16) Home Med list Apixaban (Eliquis) 5 MG TABLET 5 MG PO BID AFIB Atorvastatin Calcium (Lipitor) 20 MG TABLET 1 TAB PO DAILY HIGH CHOLESTEROL ( Reported) Diltiazem HCl (Diltiazem ER) 360 MG CAPSULE.ER 1 CAP PO DAILY AFIB (Reported) Escitalopram Oxalate 20 MG TABLET 1 TAB PO DAILY MENTAL HEALTH (Reported) Ezetimibe (Zetia) 10 MG TABLET 1 TAB PO DAILY HIGH CHOLESTEROL (Reported) Furosemide 20 MG TABLET 1 TAB PO DAILY HTN (Reported) Gabapentin (Neurontin) 600 MG TABLET 1 TAB PO BID NEUROPATHY (Reported) Insulin Aspart, Recombinant (Novolog Flexpen) (Unknown Strength) INSULN.PEN ( Unknown Dose) SEE SLIDING SCALE DIABETES (Reported) Insulin Glargine,Hum.rec.anlog (Lantus Solostar) 100 UNIT/ML (3 ML) INSULN.PEN 30 UNIT SC QPM DIABETES (Reported) Iron Carb,Gl/FA/B12/C/Docusate (Ferralet 90 Tablet) 90 MG-1 MG-12 MCG-120 MG-50 MG TABLET 1 TAB PO DAILY SUPPLEMENT (Reported) Levothyroxine Sodium 25 MCG TABLET 1 TAB PO DAILY AC THYROID (Reported) Lidocaine (Lidoderm) 5 % ADH..PATCH 1 PAT TOP DAILY PRN back pain may wear up to 12 hours Lisinopril 2.5 MG TABLET 1 TAB PO DAILY HTN (Reported) Magnesium Chloride (Slow-Mag) 71.5 MG TABLET.DR 1 TAB PO TID SUPPLEMENT ( Reported) Meclizine HCl 25 MG TABLET 1 TAB PO TIDPRN PRN DIZZINESS (Reported) Sitagliptin Phos/Metformin HCl (Janumet 50-1,000 MG Tablet) 50 MG-1,000 MG TABLET 1 TAB PO BID DIABETES (Reported) Trazodone HCl 100 MG TABLET 1 TAB PO AT BEDTIME SLEEP (Reported) Past History Travel History Traveled to [place] past 21 day No Medical History Neurological: peripheral neuropathy, TIA EENT: NONE Cardiovascular: AFIB, cardiomyopathy, syncope, ORTHOSTATIC HYPOTENSION LOW MAGNESIUM PACEMAKER/DEFIBRILLATOR Respiratory: asthma Gastrointestinal: GASTRIC BYPASS Hepatic: NONE Renal: UTI Musculoskeletal: osteoarthritis, NEUROPATHY Psychiatric: anxiety Endocrine: hypothyroidism, DIABETES (TYPE II) Blood Disorders: NONE Cancer(s): NONE 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 self Services at Home: None Primary Language: Latvian Living Will? 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 Ambulation: independent, cane, walker, non-ambulatory IADLs Independent: shopping, housework, finances, food prep, telephone, transportation , medication admin. Review of Systems Review of Systems Constitutional: Denies: no symptoms. Exam & Diagnostic Data Last 24 Hrs of Vital Signs/I&O Vital Signs Date Time Temp Pulse Resp B/P B/P Pulse O2 O2 Flow FiO2 Mean Ox Delivery Rate 05/25 2026 97.7 72 16 122/87 99 Room Air 05/25 1757 98.2 58 17 126/56 98 Room Air 05/25 1557 51 18 118/87 95 Room Air 05/25 1518 96 Room Air 05/25 1406 98.1 45 18 101/55 99 Room Air Intake & Output 05/26 0800 05/26 0000 05/25 1600 Intake Total 0 Output Total Balance 0 Intake, Oral 0 Patient 1095.057 kg 96.162 kg Weight Weight Bed scale Reported by Patient Measurement Method Physical Exam General Appearance Alert, Oriented X3, Cooperative, No Acute Distress Neck No JVD Cardiovascular Normal S1, Normal S2 Lungs Clear to Auscultation, Normal Air Movement Abdomen Soft, No Tenderness Extremities No Clubbing, No Cyanosis, No Edema Vascular Normal Pulses, Pulses Symmetrical Last 24 Hrs of Labs/Robbie: Laboratory Tests 05/26/18 0045: Sodium Pending, Potassium Pending, Chloride Pending, Carbon Dioxide Pending, Anion Gap Pending, BUN Pending, Creatinine Pending, BUN/Creatinine Ratio Pending 05/25/18 1529: Anion Gap 12, Estimated GFR 30 L, BUN/Creatinine Ratio 22.4, Glucose 169 H, Calcium 8.9, Magnesium 2.4 H, Total Bilirubin 0.2, AST 17, ALT 18, Alkaline Phosphatase 35, Troponin I < 0.01, Total Protein 6.6, Albumin 3.8, Globulin 2.8, Albumin/Globulin Ratio 1.4, TSH &T3 &Free T4 Intrp 2.160, CBC w Diff NO MAN DIFF REQ, RBC 3.61 L, MCV 80.4 L, MCH 26.3 L, MCHC 32.8 L, RDW 17.6 H, MPV 8.0, Gran % 73.6, Lymphocytes % 17.2 L, Monocytes % 6.6, Eosinophils % 2.0, Basophils % 0.6, Absolute Granulocytes 6.9 H, Absolute Lymphocytes 1.6, Absolute Monocytes 0.6, Absolute Eosinophils 0.2, Absolute Basophils 0.1, Lyme Disease Screen Pending 05/25/18 1405: Lyme Disease Antibody Cancelled Assessment/Plan Assessment: Vital signs at the time of admission-temperature 98.1, pulse 45, respiratory 18, blood pressure 101/55, SPO2 99% on room air. Blood workup-hemoglobin 9.5, hematocrit 29.0, platelet count 311, platelets are 73.6, serum sodium 134, potassium 5.7, chloride 102, carbon dioxide 20, anion gap 12, BUN 38, creatinine 1.7, GFR 30, glucose 169, calcium 8.9, magnesium 2.4, total bilirubin 0.2, AST 17, ALT 18, alkaline phosphatase 35, troponin I less than 0.01, total protein 6.6, albumin 3.8, TSH 2.160, CXR-No acute pulmonary disease. ED course-pacemaker was assessed by the [employer] and the rate has been increased to 50 patient denies for any complaint of any discomfort after increasing the heart rate. Problem list- Bradycardia possibly secondary to medication including Cardizem, metoprolol, magnesium Microcytic hypochromic anemia possibly iron deficiency Hyponatremia Hyperkalemia Acute on chronic kidney disease Assessment and plan- * We will admit the patient to telemetry floor * We will do overnight telemetry monitoring * We will follow cardiology consult * We will hold Cardizem for now * If patient remain asymptomatic then she can follow Dr. Patterson as an outpatient for further evaluation and management * Fingerstick 3 times daily/edges * NovoLog according to the sliding scale * Continue injection Lantus 30 units as before * We will hold the lisinopril because of the hyperkalemia and watch for potassium level * We will redecide about restarting the lisinopril. * CODE STATUS-full code * Diet-consistent carbohydrate diet * DVT prophylaxis-apixaban/ALPS As Ranked By This Provider Problem List: 1. Hyperkalemia 2. Bradycardia Core Measures/Misc (05/18) Acute Coronary Syndrome ACS Diagnosis: No Congestive Heart Failure Congestive Heart Failure Diagnosis No Cerebrovascular Accident CVA/TIA Diagnosis: No VTE (View Protocol) VTE Risk Factors Age>40 No Mechanical VTE Prophylaxis d/t N/A MechProphylax Ordered No VTE Pharm Prophylaxis d/t NA PharmProphylax ordered Comment: on apixaban Sepsis (View protocol) Sepsis Present: No If YES complete Sepsis Event Note If YES complete Sepsis Event Note Andres Weston MD 05/26/18 0407: Core Measures/Misc (05/18) Sepsis (View protocol) If YES complete Sepsis Event Note If YES complete Sepsis Event Note Attending MD Review Statement Attending Statement Attending MD Statement: examined this patient, discuss w/resident/PA/TUNE UP MECHANIC, agreed w/resident/PA/TUNE UP MECHANIC Attending Assessment/Plan: Patient is seen and examined independently by me. Care plan discussed with medical doctor md and/or resident. I agree with the physical exam findings and plan of care as outlined above with the following changes and additions. 67 yo female with history of A fib on Eliquis, cardiomyopathy, VT s/p AICD pacer , TIA, HTN, HLD, DM, presented with dizziness. Patient has fatigue, SOB/DUPREE and dizziness for 2 weeks. 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 She is noted to have HR in 40s. EKG shows A fib at [address]-T changes when compares with previous EKG and no peaked T waves. After pacemaker interrogation, it is found that the low threshold for HR is at 40. It is re-adjusted to threshold for HR of 50. Her symptoms have improved. However, K5.7. BUN/Cr 38/1.7. TSH 2.16. Patient is admitted to inpatient to [facility] for bradycardia, hyperkalemia and LESLIE. Cardiac monitoring. Hold Cardizem and Lisinopril. Give kayexelate 15 g PO x1. Follow chem. Cardiology consult. Signed: Andres Weston MD FACP
[2018-05-26 05:54] VITALS: BP 118/82
[2018-05-26 07:51] LABS: ABSOLUTE BASOPHIL COUNT 0 /CUMM (0.0-0.2); ABSOLUTE EOSINOPHIL COUNT 0.2 /CUMM (0.0-0.7); ABSOLUTE GRANULOCYTE CT 5.1 /CUMM (1.4-6.5); ABSOLUTE LYMPH COUNT 1.4 /CUMM (1.2-3.4); ABSOLUTE MONOCYTE COUNT 0.6 /CUMM (0.10-0.60); BASOPHIL % 0.4 % (0.0-2.0); EOSINOPHIL % 2.5 % (0-5); GRANULOCYTE % 69.6 % (42.2-75.2); MEAN CORPUSCULAR HGB 26.4 PG (27.0-31.0); MEAN CORPUSCULAR HGB CONC 33.1 G/DL (33.0-37.0); MEAN CORPUSCULAR VOLUME 79.6 FL (81.0-99.0); MEAN PLATELET VOLUME 8.1 FL (7.4-10.4); PLATELET COUNT 281 /CUMM (130-400); RBC DISTRIBUTION WIDTH 17.4 % (11.5-14.5); RED BLOOD CELL CT 3.51 /CUMM (4.20-5.40); WHITE BLOOD CELL COUNT 7.3 /CUMM (4.8-10.8)
--- NOTE | 2018-05-26 09:35 | PN- Gen Med ---
JoseFidelina 05/26/18 0934: Assessment/Plan Medical Problem List: 1. LESLIE (acute kidney injury) 2. Bradycardia 3. Hyperkalemia Plan: 67 year old female with PMH Afib on Eliquis, Cardiomyopathy, HTN, HLD, DM type 1 , hypothyroidism, gastric bypass 2005, s/p AICD, TIA 1998, 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 Patient was admitted after ED work up showed hyperkalemia and LESLIE. Problem List 1. Bradycardia 2. Hyperkalemia 3. LESLIE 4. microcytic, hypochromic anemia possibly iron deficiency 5. Hyponatremia 6. H/O Cardiomyopathy; placement of AICD; most recent EF 55% #Bradycardia -[employer] set new low parameter to 50bpm in ED; pt clinically feels better -Cardiology consulted; discontinue cardizem, dose metoprolol 12.5mg bid and monitor patient overnight. Will d/c in AM if medication adjustment well tolerated. -Outpatient follow up with Dr. Patterson #Hyperkalemia-resolving -K 5.4 today (down trending with hydration and holding lisinopril) -Will repeat in AM #LESLIE -Cr 1.1 down trending since admission with IV fluids -Will repeat in AM -continue to avoid nephrotoxic agents including NSAIDS #Microcytic, hypochromic anemia -possible iron def anemia -outpatient work up with PCP #Hyponatremia-resolved with IV hydration NS #H/O Cardiomyopathy; placement of AICD; most recent EF 55% -Lasix q48 hours DVT Prophylaxis: ALPs/ambulation/Eliquis(already on for Afib) Code status: Full code Discharge Plan: plan to dc in AM if patient tolerates medication adjustments well DVT/Prophylaxis: mechanical, pharmacological, ambulation Subjective Follow-up For: Sinus bradycardia Hyperkalemia LESLIE Complaints: no complaints Tele-Events Since Last Visit: Afib overnight rate 76-83 Subjective: Patient has no complaints. No acute events overnight. She feels better with her heart rate increased. Eager to go home, but willing to complete assessment. Review of Systems Constitutional: Reports: no symptoms. EENTM: Reports: no symptoms. Cardiovascular: Reports: no symptoms. Respiratory: Reports: no symptoms. Gastrointestinal: Reports: no symptoms. Genitourinary: Reports: no symptoms. Musculoskeletal: Reports: no symptoms. Skin: Reports: no symptoms. Objective Last 24 Hrs of Vital Signs/I&O Vital Signs Date Time Temp Pulse Resp B/P B/P Pulse O2 O2 Flow FiO2 Mean Ox Delivery Rate 05/26 0554 98.5 82 18 118/82 96 Room Air 05/25 2200 Room Air 05/25 2026 97.7 72 16 122/87 99 Room Air 05/25 1757 98.2 58 17 126/56 98 Room Air 05/25 1557 51 18 118/87 95 Room Air 05/25 1518 96 Room Air 05/25 1406 98.1 45 18 101/55 99 Room Air Intake & Output 05/26 1600 05/26 0800 05/26 0000 Intake Total 120 120 Output Total Balance 120 120 Intake, Oral 120 120 Patient 2414 lb Weight Weight Bed scale Measurement Method Physical Exam General Appearance: Alert, Oriented X3, Cooperative, obese Skin: No Rashes Skin Temp/Moisture Exam: Warm/Dry HEENT: Atraumatic, PERRLA Cardiovascular: Normal S1, Normal S2, No Murmurs, irregularly irregular, left anterior chest wall with AICD; site without erythema or signs of infection Lungs: Clear to Auscultation Abdomen: Normal Bowel Sounds, Soft, No Tenderness Extremities: No Cyanosis, No Edema Aleja REYES,Charmaine 05/26/18 1041: Assessment/Plan Medical Assessment: Patient seen and examined. Agree with interns note. 67-year-old female past medical history of A. fib on Eliquis, previous ventricular tachycardia status post AICD pacemaker placement who came in with bradycardia, AK I and hyperkalemia. Appreciate cardiology's evaluation and we have stopped the Cardizem. The pacemaker is now set to 50. We are attributing the hyperkalemia to the TIMOTEO inhibitor and will stop that. Her K is much better at 5.4 and will see if we can discharge her today with outpatient follow-up.
--- NOTE | 2018-05-26 10:15 | PN- Cardiology ---
Subjective Subjective: Feeling well. No chest pain. No palpitations. No diaphoresis. No nausea or vomiting. No lightheadedness or dizziness Objective Vital Signs and I&Os Vital Signs Date Time Temp Pulse Resp B/P B/P Pulse O2 O2 Flow FiO2 Mean Ox Delivery Rate 05/26 0554 98.5 82 18 118/82 96 Room Air 05/25 2200 Room Air 05/25 2026 97.7 72 16 122/87 99 Room Air 05/25 1757 98.2 58 17 126/56 98 Room Air 05/25 1557 51 18 118/87 95 Room Air 05/25 1518 96 Room Air 05/25 1406 98.1 45 18 101/55 99 Room Air Intake & Output 05/26 1600 05/26 0800 05/26 0000 05/25 1600 05/25 0000 Intake Total 120 120 0 Output Total Balance 120 120 0 Intake, Oral 120 120 0 Patient 2414 lb 212 lb Weight Weight Bed scale Reported by Patient Measurement Method Physical Exam: Gen: NAD HEENT: normal Lungs: clear to auscultation, normal resp. effort Heart: S1, S2, no murmurs Abdomen: Soft, nontender, no masses Extremities: No clubbing, cyanosis, or edema. Neuro: Alert and oriented x 3, cranial nerves intact Current Medications: Current Medications Sig/Gary Start time Last Medication Dose Route Stop Time Status Admin Apixaban 5 MG BID 05/26 900 DC PO Apixaban 5 MG BID 05/25 2245 AC 05/26 PO 0910 Atorvastatin Calcium 20 MG DAILY 05/26 900 AC 05/26 PO 0941 Diltiazem HCl 360 MG DAILY 05/26 900 CAN PO Escitalopram Oxalate 20 MG DAILY 05/26 900 AC 05/26 PO 0947 Ezetimibe 10 MG DAILY 05/26 900 AC 05/26 PO 0912 Furosemide 20 MG DAILY 05/26 900 AC PO Gabapentin 600 MG BID 05/26 900 DC PO Gabapentin 600 MG BID 05/25 2245 AC 05/26 PO 0911 Influenza Virus 0.5 ML ONCE ONE 05/26 08 DC 05/26 Vaccine IM 05/26 0801 0941 Insulin Aspart 0 TIDAC 05/26 08 DC SC Insulin Aspart 0 TIDAC 05/25 2245 AC SC Insulin Detemir 30 UNITS QPM 05/26 2100 DC SC Insulin Detemir 30 UNITS QPM 05/25 2245 AC 05/25 SC 2356 Levothyroxine Sodium 0.025 MG DAILY AC 05/26 0700 AC 05/26 PO 0542 Sodium Chloride 1,000 ML Q20H 05/25 2145 AC 05/25 IV 2357 Sodium Chloride 1,000 ML .Q5H 05/25 1645 DC 05/25 IV 05/25 214 1703 Sodium Polystyrene 30 ML ONCE ONE 05/26 0345 DC Sulfonate PO 05/26 0346 Trazodone HCl 100 MG AT BEDTIME 05/26 2100 DC PO Trazodone HCl 100 MG AT BEDTIME 05/25 2245 AC 05/25 PO 2355 Results Last 48 Hrs of Labs/Mics: Laboratory Tests 05/26/18 0620: Anion Gap 7, Estimated GFR 49 L, BUN/Creatinine Ratio 25.5 H, CBC w Diff NO MAN DIFF REQ, RBC 3.51 L, MCV 79.6 L, MCH 26.4 L, MCHC 33.1, RDW 17.4 H, MPV 8.1, Gran % 69.6, Lymphocytes % 19.1 L, Monocytes % 8.4, Eosinophils % 2.5, Basophils % 0.4, Absolute Granulocytes 5.1, Absolute Lymphocytes 1.4, Absolute Monocytes 0.6, Absolute Eosinophils 0.2, Absolute Basophils 0 05/26/18 0045: Anion Gap 9, Estimated GFR 45 L, BUN/Creatinine Ratio 26.7 H 05/25/18 1529: Anion Gap 12, Estimated GFR 30 L, BUN/Creatinine Ratio 22.4, Glucose 169 H, Calcium 8.9, Magnesium 2.4 H, Total Bilirubin 0.2, AST 17, ALT 18, Alkaline Phosphatase 35, Troponin I < 0.01, Total Protein 6.6, Albumin 3.8, Globulin 2.8, Albumin/Globulin Ratio 1.4, TSH &T3 &Free T4 Intrp 2.160, CBC w Diff NO MAN DIFF REQ, RBC 3.61 L, MCV 80.4 L, MCH 26.3 L, MCHC 32.8 L, RDW 17.6 H, MPV 8.0, Gran % 73.6, Lymphocytes % 17.2 L, Monocytes % 6.6, Eosinophils % 2.0, Basophils % 0.6, Absolute Granulocytes 6.9 H, Absolute Lymphocytes 1.6, Absolute Monocytes 0.6, Absolute Eosinophils 0.2, Absolute Basophils 0.1, Lyme Disease Screen Pending 05/25/18 1405: Lyme Disease Antibody Cancelled Assessment/Plan Assessment/Plan Assessment: 1. Atrial fibrillation, anticoagulated on Eliquis 2. Implanted defibrillate 3. Hypertension, with current normal blood pressure 4. Slow ventricular rate, improved with discontinuation of diltiazem, and increase in lower rate limit on defibrillator 5. Chronic hypomagnesemia 6. Hyperkalemia Plan: * Would keep off diltiazem unless ventricular rate becomes elevated * Would hold lisinopril for now given hyperkalemia * Okay for discharge from cardiac standpoint * Follow up in the office with Dr. Patterson in 1-2 weeks Continue telemetry? Yes
[2018-05-26 14:34] VITALS: BP 142/80
[2018-05-26] MEDS ORDERED: METOPROLOL TART25 M1 PO (15:15)
--- NOTE | 2018-05-26 15:19 | Patient Discharge Instructions ---
Discharge Instructions General Discharge Information You were seen/treated for: Sinus bradycardia Hyperkalemia Acute Kidney Injury You had these procedures: changed the rate on your pacemaker to 50beats per minute Watch for these problems: increasing fatigue, shortness of breath, fever, chest pain, nausea, vomiting, lightheadedness, palpitations Special Instructions: Follow up with your PCP and Dr. Patterson outpatient Diet Continue normal diet: Yes Recommended Diet: Diabetic Activity Full Activity/No Limits: No Activity Self Limited: No Acute Coronary Syndrome Inclusion Criteria At DC or during hospital stay patient has or had the following: ACS DIAGNOSIS No Discharge Core Measures Meds if any: Prescribed or Continued at Discharge Meds if any: NOT Prescribed or Continued at Discharge Congestive Heart Failure Inclusion Criteria At DC or during hospital stay patient has or had the following: CHF DIAGNOSIS No Discharge Core Measures Meds if any: Prescribed or Continued at Discharge Meds if any: NOT Prescribed or Continued at Discharge Cerebrovascular accident Inclusion Criteria At DC or during hospital stay patient has or had the following: CVA/TIA Diagnosis No Discharge Core Measures Meds if any: Prescribed or Continued at Discharge Meds if any: NOT Prescribed or Continued at Discharge Venous thromboembolism Inclusion Criteria VTE Diagnosis No VTE Type NONE VTE Confirmed by (Test) NONE Discharge Core Measures - Per Current guidelines, there needs to be overlap - treatment for the first 5 days of Warfarin therapy. - If discharged on Warfarin prior to 5 days of - overlap therapy, the patient will need to be - assessed for post discharge needs including - *Post discharge parental anticoagulation - *Warfarin and/or parental anticoagulation education - *Follow up date to check INR post discharge At least 5 days overlap therapy as Inpatient No Meds if any: Prescribed or Continued at Discharge Note: Overlap Therapy is Warfarin and Anticoagulant Meds if any: NOT Prescribed or Continued at Discharge
[2018-05-26 20:30] VITALS: BP 126/80
[2018-05-27 06:30] VITALS: BP 110/66
[2018-05-27 08:02] VITALS: BP 110/66
--- NOTE | 2018-05-27 08:06 | PN- Housestaff ---
Fidelina Garcia 05/27/18 0806: Subjective Follow-up For: bradycardia hyperkalemia LESLIE Complaints: no complaints Tele-Events Since Last Visit: Afib 79-94 overnight Subjective: Patient has no complaints. She slept well and is eager to return home today. Denies chest pain, SOB, palpitations. Review of Systems Constitutional: Reports: no symptoms. EENTM: Reports: no symptoms. Cardiovascular: Reports: no symptoms. Respiratory: Reports: no symptoms. Gastrointestinal: Reports: no symptoms. Genitourinary: Reports: no symptoms. Musculoskeletal: Reports: no symptoms. Skin: Reports: no symptoms. Objective Last 24 Hrs of Vital Signs/I&O Vital Signs Date Time Temp Pulse Resp B/P B/P Pulse O2 O2 Flow FiO2 Mean Ox Delivery Rate 05/27 0802 78 110/66 05/27 0630 98.4 78 18 11066 96 Room Air 05/26 2234 98.3 05/26 2039 84 126/80 05/26 2030 84 18 126/80 96 Room Air 05/26 1508 83 148/80 05/26 1434 98.5 90 18 142/80 96 Room Air Intake & Output 05/27 1600 05/27 0800 05/27 0000 Intake Total 240 120 Output Total Balance 240 120 Intake, Oral 240 120 Patient 234 lb Weight Physical Exam General Appearance: Alert, Oriented X3, Cooperative, No Acute Distress, obese Skin: No Rashes Skin Temp/Moisture Exam: Warm/Dry HEENT: Atraumatic, PERRLA Neck: Supple Cardiovascular: Normal S1, Normal S2, irregular Lungs: Clear to Auscultation Abdomen: Normal Bowel Sounds, Soft, No Tenderness Extremities: No Cyanosis, No Edema Assessment/Plan Assessment: 67 year old female with PMH Afib on Eliquis, Cardiomyopathy, HTN, HLD, DM type 1 , hypothyroidism, gastric bypass 2005, s/p AICD, TIA 1998, 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 Patient was admitted after ED work up showed hyperkalemia and LESLIE. Problem List 1. Bradycardia 2. Hyperkalemia 3. LESLIE 4. microcytic, hypochromic anemia possibly iron deficiency 5. Hyponatremia 6. H/O Cardiomyopathy; placement of AICD; most recent EF 55% #Bradycardia -[employer] set new low parameter to 50bpm in ED; pt clinically feels better -Cardiology consulted; discontinue cardizem, dose metoprolol 12.5mg bid and monitor patient overnight. Will d/c in AM if medication adjustment well tolerated. -Outpatient follow up with Dr. Patterson #Hyperkalemia-resolving -K 5.2 today (down trending with hydration and holding lisinopril) -Stop Lisinopril at home and follow up with PCP/Cardiology outpatient #LESLIE-resolved -Cr 0.8 down trending since admission with IV fluids -continue to avoid nephrotoxic agents including NSAIDS #Microcytic, hypochromic anemia -possible iron def anemia -outpatient work up with PCP #Hyponatremia-resolved with IV hydration NS #H/O Cardiomyopathy; placement of AICD; most recent EF 55% -Lasix q48 hours DVT Prophylaxis: ALPs/ambulation/Eliquis(already on for Afib) Code status: Full code Discharge Plan: DC today with close outpatient follow up with Dr. Patterson and Dr. Boss and PCP. DVT/Prophylaxis: mechanical, pharmacological, ambulation Problem List: 1. Atrial fibrillation 2. Hyperkalemia 3. Bradycardia 4. LESLIE (acute kidney injury) Pain Ratin Pain Location: none Pain Goal: Remain pain free Pain Plan: none Tomorrow's Labs & Rationales: no Charmaine Masterson MD 05/27/18 0947: Attending MD Review Statement Attending Statement Attending MD Statement: examined this patient, discuss w/resident/PA/CNA HOSPICE, agreed w/resident/PA/CNA HOSPICE, reviewed EMR data (avail), discussed with nursing, discussed with case mgmt, reviewed images Attending Assessment/Plan: Pt feels well and is eager to go home. On the lower dose of metoprolol she has no significant bradycardia and her pressure is well controlled. The plan is to discharge her off the Cardizem and off the Toprol-XL on the much lower dose of metoprolol. 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
--- NOTE | 2018-05-27 08:57 | Discharge Summary ---
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 She was at the infusion clinic receiving infusion of magnesium when her vital signs showed heart rate of 42. She was then sent over to the ED for further evaluation. Dr. Boss (her doctor for pacemaker) was contacted and he sent over a [employer] rep to adjust the pacemaker setting to 50bpm. Patient was admitted after ED work up showed hyperkalemia and LESLIE. Problem List 1. Bradycardia 2. Hyperkalemia 3. LESLIE 4. microcytic, hypochromic anemia possibly iron deficiency 5. Hyponatremia 6. H/O Cardiomyopathy; placement of AICD; most recent EF 55% Admission Data: VS-temperature 98.1, pulse 45, respiratory 18, blood pressure 101/55, SPO2 99% on room air. Blood workup-hemoglobin 9.5, hematocrit 29.0, platelet count 311, platelets are 73.6, serum sodium 134, potassium 5.7, chloride 102, carbon dioxide 20, anion gap 12, BUN 38, creatinine 1.7, GFR 30, glucose 169, calcium 8.9, magnesium 2.4, total bilirubin 0.2, AST 17, ALT 18, alkaline phosphatase 35, troponin I less than 0.01, total protein 6.6, albumin 3.8, TSH 2.160, CXR-No acute pulmonary disease. #Bradycardia resolved after adjustment of pacemaker. The following interventions occured: -[employer] set new low parameter to 50bpm in ED; pt clinically feels better -Cardiology consulted; discontinue cardizem, dose metoprolol 12.5mg bid and monitor patient overnight. -Outpatient follow up with Dr. Patterson #Hyperkalemia-resolving over the course of hospitalization. Potassium was 5.2 at time of discharge. Her Lisinopril was stopped and she will follow up with her PCP and cardiology as an outpatient. #LESLIE-resolved with IV hydration. Creatinine was 0.8 at time of discharge. #Microcytic, hypochromic anemia -possible iron def anemia -outpatient work up with PCP #Hyponatremia-resolved with IV hydration NS #H/O Cardiomyopathy; placement of AICD; most recent EF 55% -Lasix q48 hours was continued as per home regimen Patient was monitored on Telemetry and remained in Afib throughout the course of her hospitalization. Her rate remained below 100. Upon discharge the following medication adjustments were made: Cardizem was discontinued Metoprolol was reduced to 12.5mg bid Lisinopril was stopped She remained stable throughout her stay and was cleared for discharge by cardiology on 05/27/18. She will receive close outpatient follow up with her PCP and Cardiology. Allergies: Coded Allergies: acetaminophen (09/19/16) oxycodone (From PERCOCET) (UNKNOWN 09/19/16) morphine (HEADACHES, SWEATING 09/19/16) nitroglycerin (MADE MY HEART GO CRAZY 09/19/16) Disposition Summary Disposition Principal Diagnosis: Bradycardia Additional Diagnosis: hyperkalemia acute kidney injury Discharge Disposition: home or self care Discharge Instructions General Discharge Information Code Status: Full Code Patient's Diet: diabetic Patient's Activity: as tolerated Follow-Up Instructions/Appts: Follow up with Dr. Patterson within one week of discharge from hospital Follow the adjustments to medications carefully Return for any concern or return of symptoms. Medications at Discharge Discharge Medications: Stop taking the following medications: Diltiazem HCl (Diltiazem ER) 360 MG CAPSULE.ER ORAL DAILY Lisinopril (Lisinopril) 2.5 MG TABLET ORAL DAILY Continue taking these medications: Atorvastatin Calcium (Lipitor) 20 MG TABLET 1 Tablet ORAL DAILY Comments: Last Taken: 05/27/18 Time: 8 AM Insulin Aspart, Recombinant (Novolog Flexpen) (Unknown Strength) INSULN.PEN Unknown Dose SEE SLIDING SCALE Comments: NOT GIVEN IN HOSPITAL Ezetimibe (Zetia) 10 MG TABLET 1 Tablet ORAL DAILY Comments: Last Taken: 05/27/18 Time: 8 AM Furosemide (Furosemide) 20 MG TABLET 1 Tablet ORAL DAILY Comments: NOT GIVEN IN HOSPITAL Magnesium Chloride (Slow-Mag) 71.5 MG TABLET. 1 Tablet ORAL THREE TIMES DAILY Comments: NOT GIVEN IN HOSPITAL. Sitagliptin Phos/Metformin HCl (Janumet 50-1,000 MG Tablet) 50 MG-1,000 MG TABLET 1 Tablet ORAL TWICE DAILY Comments: NOT GIVEN IN HOSPITAL Escitalopram Oxalate (Escitalopram Oxalate) 20 MG TABLET 1 Tablet ORAL DAILY Comments: Last Taken: 05/27/18 Time: 8 AM Meclizine HCl (Meclizine HCl) 25 MG TABLET 1 Tablet ORAL THREE TIMES A DAY NEEDED as needed for DIZZINESS Comments: NOT GIVEN IN HOSPITAL Gabapentin (Neurontin) 600 MG TABLET 1 Tablet ORAL TWICE DAILY Comments: Last Taken: 05/27/18 Time: 8 AM Levothyroxine Sodium (Levothyroxine Sodium) 25 MCG TABLET 1 Tablet ORAL DAILY BEFORE BREAKFAST Comments: Last Taken: 05/27/18 Time: 06:30 AM Iron Carb,Gl/FA/B12/C/Docusate (Ferralet 90 Tablet) 90 MG-1 MG-12 MCG-120 MG-50 MG TABLET 1 Tablet ORAL DAILY Comments: NOT GIVEN IN HOSPITAL Insulin Glargine,Hum.rec.anlog (Lantus Solostar) 100 UNIT/ML (3 ML) INSULN.PEN 30 Unit SC Every night Comments: Last Taken: 05/26/18 Time: 830 PM *LEVEMIR 30 UNITS* Trazodone HCl (Trazodone HCl) 100 MG TABLET 1 Tablet ORAL AT BEDTIME Comments: Last Taken: 05/27/18 Time: 830 PM Apixaban (Eliquis) 5 MG TABLET 5 Milligram ORAL TWICE DAILY Days = 28 Comments: Last Taken: 05/27/18 Time: 8 AM Lidocaine (Lidoderm) 5 % ADH..PATCH 1 Patch On the skin DAILY as needed for back pain Qty = 30 Instructions: may wear up to 12 hours Comments: NOT GIVEN IN HOSPITAL. Start taking the following new medications: Metoprolol Tartrate (Metoprolol Tartrate) 25 MG TABLET 12.5 Milligram ORAL TWICE DAILY Qty = 60 No Refills Instructions: . Comments: Last Taken: 05/27/18 Time: 08 AM Copies To: Vishal Patterson MD; Patrick REYES,Gautam Okeefe
[2018-05-27] MEDS ORDERED: METOPROLOL TART25 M1 PO (10:13)
== END 2018-05-27 13:45 | DRG 683 ==
LOC: ERH 13:39 → 1NO 19:23 → ERHI 19:23 → ENRESERV 20:12 → ENTRNSPT 21:20 → EDTRNSPTSTS 21:28 → EDTRNSPT 21:28 → 1NO 21:50 → CMPTRNSPT 21:55 → 1NO 05-26 07:49 → ENPENDDIS 05-27 09:17 → ENTRNSPT 05-27 12:50 → CMPTRNSPT 05-27 13:29 → 1NO 05-27 13:45
PROVIDERS: Internal Medicine Adolescent Medicine; Physician Assistant Medical
DX: N17.9 Acute kidney failure, unspecified (principal); I50.30 Unspecified diastolic (congestive) heart failure; I42.9 Cardiomyopathy, unspecified; E87.1 Hypo-osmolality and hyponatremia; R00.1 Bradycardia, unspecified; E87.5 Hyperkalemia; E78.5 Hyperlipidemia, unspecified; E03.9 Hypothyroidism, unspecified; Z95.810 Presence of automatic (implantable) cardiac defibrillator; Z98.84 Bariatric surgery status; E66.9 Obesity, unspecified; Z68.36 Body mass index [BMI] 36.0-36.9, adult; Z79.01 Long term (current) use of anticoagulants; I11.0 Hypertensive heart disease with heart failure; E11.42 Type 2 diabetes mellitus with diabetic polyneuropathy; Z79.4 Long term (current) use of insulin; Z79.84 Long term (current) use of oral hypoglycemic drugs; Z91.81 History of falling; E55.9 Vitamin D deficiency, unspecified; E53.8 Deficiency of other specified B group vitamins; D53.9 Nutritional anemia, unspecified; F41.9 Anxiety disorder, unspecified; F32.9 Major depressive disorder, single episode, unspecified; T44.7X5A Adverse effect of beta-adrenoreceptor antagonists, initial encounter; T46.1X5A Adverse effect of calcium-channel blockers, initial encounter; T47.4X5A Adverse effect of other laxatives, initial encounter; I48.2 Chronic atrial fibrillation; Z86.73 Personal history of transient ischemic attack (TIA), and cerebral infarction without residual deficits; T46.4X5A Adverse effect of angiotensin-converting-enzyme inhibitors, initial encounter
CPT/HCPCS: 1NSP; 86618; 87476; 36415; 36592; 71045; 82436; 93005; 93010; Q2036